=== PATIENT | female | born 1950 | race Caucasian/White ===

== ENCOUNTER 2020-04-03 09:00 | Outpatient (REF) | payer MEDICARE, OTHER, SELFPAY ==
[2020-04-03 10:51] LABS: MANUAL DIFF FLAG NO
[2020-04-03 10:56] LABS: Basophils Absolute Auto 0.1 X10*3/uL (0.0-0.2); Basophils Percent Auto 1.2 % (0-2); Eosinophils Absolute Auto 0.1 X10*3/uL (0.0-0.4); Eosinophils Percent Auto 1.4 % (0-4); Hematocrit 40.3 % (37-47); Hemoglobin 13.4 g/dl (12.0-16.0); Imm Gran Abs Auto 0.01 X10*3/uL (0.00-0.03); Imm Gran Pct Auto 0.2 % (0.0-0.4); Lymphocytes Percent Auto 19.8 % (20-40); Mean Corpuscular HGB Conc 33.3 g/dl (31.0-35.0); Mean Corpuscular Hemoglobin 30.4 pg (27.0-33.0); Mean Corpuscular Volume 91.4 fL (80-98); Mean Platelet Volume 9.6 fL (9.4-12.3); Monocytes Absolute Auto 0.5 X10*3/uL (0.1-1.2); Monocytes Percent Auto 9.2 % (2-11); Neutrophils Absolute Auto 3.4 X10*3/uL (2.0-8.3); Neutrophils Percent Auto 68.2 % (45-73); Platelet Count 221 X10*3/uL (160-400); Red Blood Count 4.41 X10*6/uL (4.20-5.50); Red Cell Distribution Width 12.1 % (11.0-16.0)
[2020-04-03 11:23] LABS: Alanine Aminotransferase 20 U/L (0-31); Albumin Level 4.3 g/dL (3.5-5.0); Alkaline Phosphatase 83 U/L (39-117); Anion Gap 12 (12-20); Aspartate Amino Transferase 22 U/L (5-31); Bilirubin Total 0.7 mg/dL (0.0-1.0); Blood Urea Nitrogen 16 mg/dL (9-16); Calcium 9.1 mg/dL (8.4-10.2); Carbon Dioxide 27 mmol/L (22-29); Chloride 103 mmol/L (96-108); Estimated Glomerular Filt Rate > 60; Glucose Fasting 102 mg/dL (60-99); Potassium 4.3 mmol/l (3.3-5.1); Sodium 138 mmol/L (135-145); Total Protein 6.6 g/dL (6.5-8.0)
[2020-04-03 11:38] LABS: Thyroid Stimulating Hormone 23.89 uIU/mL (0.32-4.0)
[2020-04-03 12:16] LABS: Erythrocyte Sedimentation Rate 7 MM/HR (0-20)
== END 2020-04-03 09:01 | disposition home or self-care (01) ==
LOC: HO.WFDLDS 09:00
PROVIDERS: PCP Internal Medicine; Visit Provider Internal Medicine
DX: U07.1 COVID-19 (principal)
CPT/HCPCS: 36415; 80053; 84443; 85025; 85652

== ENCOUNTER 2020-08-17 07:30 | Outpatient (RCR) | payer MEDICARE, OTHER, SELFPAY ==
--- NOTE | 2020-06-26 09:59 | MHC.PT.EP ---
[facility] [place] Office [place] Office [place] Office [address] Janny Rincon [address] [phone] F: [phone] F: [phone] F: [phone] F: [phone] Physical Therapy Plan of Care Date of Evaluation: 06/26/20 Date of Surgery: Diagnosis: vertigo Assessment: The patient is positive for positional vertigo. She had nystagmus and reports of vertigo in the right hallpike. She had symptoms in both the Anterior canal and posterior canal based on the direction of her nystagmus in the hallpike position. I did particle repositioning which eliminated nystagmus. The patient may need additional balance therapy once the vertigo is resolved. She had post maneuver dizziness which I educated her on safety and management of symptoms. The patient will return for f/u. Frequency and Duration: The patient will be seen 2x/week x 4 weeks. Short Term Goals: 1.Pt to be negative for nystagmus in all diagnostic positions for BPPV to facilitate improved functional movements. Residential Goals: 1. For the patient to be negative for nystagmus or reports of vertigo in all diagnostic positions bilaterally to resolution of BPPV in 4 weeks. 2. For the patient to be able to functionally move in all planes and directions without provocation of dizziness to show return to PLOF. 3.For the patient to be educated on symptoms and indications to return to therapy when needed in 4 weeks. Treatment Plan: Modalities to reduce pain, spasms and effusion. Manual therapy to restore motion and function. Therapeutic exercise to improve strength and flexibility. Neuromuscular re-education for posture and balance. Therapeutic activities to return to functional activities of daily living. Electronically signed by: Mi Dodd PT DPT Please sign and return to therapist. Thank you for your referral.
--- NOTE | 2020-08-17 09:30 | MHC.PT.DC ---
[facility] [place] Office [place] Office [place] Office [address] Janny Rincon [address] [phone] F: [phone] F: [phone] F: [phone] F: [phone] Physical Therapy Discharge Report Diagnosis: vertigo Date of Surgery: Date of Evaluation: 06/26/20 Date of Discharge: 08/17/20 Treatments to Date: 6 Cancellations to Date: No Shows to Date: Discharge Status: Achieved Goals Improved Function Independent with HEP Discharge Summary: Pt was negative in all canals bilaterally for BPPV. Pt has unsteadiness still some minor but manageable vestibular hypofunction. She has the most trouble with diagonal head movements. DVA was WNL today at -1 lines. Pt given final HEP of balance exercises targeting vestibular system especially with diagonal head or body movements. Pt d/c with HEP. She was instructed to return if symptoms of BPPV return. Electronically signed by: Mi Dodd PT DPT Please sign and return to therapist. Thank you for your referral.
== END 2020-08-28 08:00 | disposition home or self-care (01) ==
LOC: HO.PT 07:30
PROVIDERS: PCP Internal Medicine; Visit Provider Internal Medicine
DX: R42 Dizziness and giddiness (principal)
CPT/HCPCS: 95992; 97112; 97162; 97535

== ENCOUNTER 2020-10-22 08:02 | Outpatient (REF) | payer MEDICARE, OTHER, SELFPAY ==
--- NOTE | ~2020-10-22 | MM_ITS ---
EXAMINATION: BONE DENSITOMETRY CLINICAL INDICATION: Postmenopausal. COMPARISON: Baseline BD dated 03/02/2018. TECHNIQUE: Using a [employer] DXA System (software version: 13.1) manufactured by [employer], dual-energy x-ray absorptiometry was performed of the lumbar spine and left hip. The images are of good technical quality. Summary results are attached. FINDINGS: AP SPINE L1-L4 (excluding L2 and L3): The data of L1-L4 has been changed to exclude the L2 and L3 vertebral bodies, because degenerative changes at these levels may cause overestimation of lumbar spine density. Current: BMD 1.338 g/cm2, Z-score 2.4, T-score 1.4, normal, 2.1% increase from baseline (<5% change is not significant). Baseline: BMD 1.311 g/cm2. LEFT FEMUR, NECK: Current: BMD 1.029 g/cm2, Z-score 1.2, T-score -0.1, normal. Baseline: BMD 1.012 g/cm2. LEFT FEMUR, TOTAL: Current: BMD 1.145 g/cm2, Z-score 2.1, T-score 1.1, normal, 1.3% decrease from baseline (<5% change is not significant). Baseline: BMD 1.160 g/cm2. IDENTIFIED RISK FACTORS: Osteoporosis, secondary osteoporosis, menopause. HISTORY OF FRACTURE: None listed. MEDICATIONS: Vitamin D. MM/XR DEXA axial skeleton IMPRESSION: 1. DIAGNOSIS: Normal bone density based on the lowest T-score value of -0.1 in the femoral neck applying World Health Organization criteria. 2. 10-YEAR FRACTURE RISK PREDICTION, FRAX: Major osteoporotic fracture (clinical spine, forearm, hip or shoulder) 11.1%. Hip fracture 0.6%. 3. Treatment Recommendations: NOF guidelines recommend consideration for treatment in postmenopausal women and men age 50 and older presenting with the following: -A hip or vertebral (clinical or morphometric) fracture. -T-score less than or equal to -2.5 at the femoral neck or spine after appropriate evaluation to exclude secondary causes. -Low bone mass at the hip or spine and a 10-year fracture probability by FRAX of greater than or equal to 3% for hip fracture or greater than or equal to 20% for major osteoporotic fracture based on the [place] adapted WHO algorithm. 4. Other Recommendations: All treatment decisions require clinical judgment and consideration of individual patient factors, including patient preferences, comorbidities, previous drug use, risk factors not captured in the FRAX model (e.g. frailty, falls, vitamin D deficiency, increased bone turnover, interval significant decline in bone density) and possible under or overestimation of fracture risk by FRAX. FUTURE SCAN RECOMMENDATION: People with diagnosed cases of osteoporosis or at high risk for fracture should have regular bone mineral density tests. For patients eligible for Medicare, routine testing is allowed once every 2 years. The testing frequency can be increased to one year for patients who have rapidly progressing disease, those who are receiving or discontinuing medical therapy to restore bone mass, or have additional risk factors.
== END 2020-10-22 08:03 | disposition home or self-care (01) ==
LOC: HO.MAMMO 08:02
PROVIDERS: PCP Internal Medicine; Visit Provider Internal Medicine
DX: Z13.820 Encounter for screening for osteoporosis (principal); N95.9 Unspecified menopausal and perimenopausal disorder; Z78.0 Asymptomatic menopausal state; Z79.899 Other long term (current) drug therapy
CPT/HCPCS: 77080

== ENCOUNTER 2020-12-21 10:35 | Outpatient (REF) | payer MEDICARE, OTHER, SELFPAY ==
[2020-12-21 10:41] LABS: MANUAL DIFF FLAG NO
[2020-12-21 11:00] LABS: Basophils Absolute Auto 0.1 X10*3/uL (0.0-0.2); Basophils Percent Auto 1.2 % (0-2); Eosinophils Absolute Auto 0.1 X10*3/uL (0.0-0.4); Eosinophils Percent Auto 1.7 % (0-4); Hematocrit 39.2 % (37-47); Imm Gran Abs Auto 0.01 X10*3/uL (0.00-0.03); Imm Gran Pct Auto 0.2 % (0.0-0.4); Lymphocytes Absolute Auto 0.9 X10*3/uL (1.2-4.9); Mean Corpuscular HGB Conc 33.2 g/dl (31.0-35.0); Mean Corpuscular Hemoglobin 30.2 pg (27.0-33.0); Mean Corpuscular Volume 91.2 fL (80-98); Mean Platelet Volume 9.6 fL (9.4-12.3); Monocytes Absolute Auto 0.5 X10*3/uL (0.1-1.2); Monocytes Percent Auto 10.9 % (2-11); Neutrophils Absolute Auto 2.6 X10*3/uL (2.0-8.3); Platelet Count 222 X10*3/uL (160-400); Red Cell Distribution Width 12.7 % (11.0-16.0); White Blood Count 4.1 X10*3/uL (4.8-10.8)
[2020-12-21 11:20] LABS: Alanine Aminotransferase 24 U/L (0-31); Albumin Level 4.3 g/dL (3.5-5.0); Alkaline Phosphatase 91 U/L (39-117); Anion Gap 14 (12-20); Aspartate Amino Transferase 24 U/L (5-31); Bilirubin Total 0.7 mg/dL (0.0-1.0); Blood Urea Nitrogen 12 mg/dL (9-16); Calcium 9.3 mg/dL (8.4-10.2); Carbon Dioxide 29 mmol/L (22-29); Chloride 103 mmol/L (96-108); Cholesterol 181 mg/dL; Estimated Glomerular Filt Rate > 60; Glucose Fasting 93 mg/dL (60-99); HDL Cholesterol 56 mg/dL; LDL Cholesterol Calculated 101 mg/dl; Potassium 4.6 mmol/L (3.3-5.1); Sodium 141 mmol/L (135-145); Total Protein 6.6 g/dL (6.5-8.0); Triglycerides 120 mg/dL
[2020-12-21 11:35] LABS: Appearance Urine CLEAR; Color Urine YELLOW; Glucose Urine UA NEG (NEG); Leukocyte Esterase Urine NEG (NEG); Nitrite Urine NEG (NEG); PH 6.5 (5.0-8.0); Specific Gravity - Urine 1.015 (1.005-1.025); Urine Blood NEG (NEG); Urine Ketones NEG (NEG); Urine Protein TRACE MG/DL (NEG-TRACE)
[2020-12-21 11:45] LABS: TSH reflex Free T4 3.01 uIU/mL (0.32-4.0)
[2020-12-21 12:51] LABS: Reflex LDLD? No
== END 2020-12-21 10:36 | disposition home or self-care (01) ==
LOC: HO.LNP 10:35
PROVIDERS: Visit Provider Internal Medicine
DX: E03.9 Hypothyroidism, unspecified (principal); E78.00 Pure hypercholesterolemia, unspecified; D70.9 Neutropenia, unspecified; L40.50 Arthropathic psoriasis, unspecified
CPT/HCPCS: 80053; 80061; 81003; 84443; 85025

== ENCOUNTER 2021-03-16 08:14 | Outpatient (REF) | payer MEDICARE, OTHER, SELFPAY ==
[2021-03-18 13:42] LABS: Immunoglobulin A 67 mg/dL (70-320)
[2021-03-22 15:36] LABS: Transglutaminase Ab IgG <1.0 U/mL; Transglutaminase IgA <1.0 U/mL
[2021-03-23 13:01] LABS: Gliadin Deamidated IgA Ab <1.0 U/mL; Gliadin Deamidated IgG Ab <1.0 U/mL
[2021-03-23 14:07] LABS: Endomysial IgA Antibody Negative (Negative)
== END 2021-03-16 08:15 | disposition home or self-care (01) ==
LOC: HO.10HDL 08:14
PROVIDERS: Visit Provider Internal Medicine
DX: R19.4 Change in bowel habit (principal)
CPT/HCPCS: 36415; 82784; 83516; 86255; 86256

== ENCOUNTER 2021-03-17 08:52 | Day surgery (SDC) | payer MEDICARE, OTHER, SELFPAY ==
[2021-03-10 16:02] VITALS: BMI 32.3
--- NOTE | 2021-03-15 13:18 | HO.ANESPROP2 ---
Documented by User: Maddison Hamilton NP 03/15/21 13:19 HPI - Anesthesia Eval Consult details Narrative: 70yo F For Colonoscopy [facility] Past Medical History Medical History (Updated 03/10/21 @ 16:01 by Deisi Pleitez, JANETT) Depression GERD (gastroesophageal reflux disease) HTN (hypertension) Hyperlipidemia Hypothyroidism Psoriatic arthritis Surgical History Surgical History (Updated 03/10/21 @ 15:46 by Deisi Pleitez, JANETT) History of esophagogastroduodenoscopy (EGD) History of tonsillectomy Hx of colonoscopy Social History Social History Are you a primary respiratory care program director to a significant other at home: No Do you presently have visiting nurse or other home services: No Patient Tobacco Use Status: Former Tobacco user Quit Date: 1979 Tobacco use type: Cigarette Second Hand Smoke Exposure: No Use of substances other than those prescribed or required for medical reasons: No Have you been hit, kicked, punched, or otherwise hurt by someone within the past year? If so, by whom?: No Are you DNR?: No Advance Directives: No Advance Directives Information Provided: No Advance Directives on File: No Recently lost weight without trying: No Eating poorly because of decreased appetite: No Nutrition Risks: No Nutritional Risk Patient : No Meds Allergies Allergy/AdvReac Type Severity Reaction Status Date / Time amoxicillin Allergy Rash Verified 03/17/21 09:05 clavulanic acid Allergy Rash Verified 03/17/21 09:05 [From Augmentin] indomethacin Allergy Rash Verified 03/17/21 09:05 Home Medications Medication Instructions Recorded Confirmed Last Taken Type atorvastatin 20 mg tablet 20 mg PO DAILY 03/10/21 03/10/21 Unknown History citalopram 20 mg tablet 20 mg PO DAILY 03/10/21 03/10/21 Unknown History coenzyme Q10 100 mg capsule 200 mg PO DAILY 03/10/21 03/10/21 Unknown History (CoQ-10) levothyroxine 88 mcg tablet 88 mcg PO DAILY 03/10/21 03/10/21 03/17/21 05:45 History naproxen 500 mg tablet 500 mg PO BID PRN 03/10/21 03/17/21 03/08/21 History omeprazole 20 mg capsule,delayed 20 mg PO DAILY 03/10/21 03/10/21 Unknown History release valsartan 40 mg tablet 40 mg PO BID 03/10/21 03/10/21 Unknown History Exam Exam Date and Time: March 15, 2021 1318 Height,Weight and Vital Signs: Height 5 ft 5.5 in Weight 89.358 kg Pertinent Lab Results Pertinent Lab Results: Laboratory Tests 12/21/20 12/21/20 08:15 08:15 WBC 4.1 L Hgb 13.0 Hct 39.2 Plt Count 222 Sodium 141 Potassium 4.6 Chloride 103 Carbon Dioxide 29 BUN 12 Creatinine 0.73 Assessment and Plan Assessment Anesthesia Assessment: Chart Reviewed Documented by User: Sandeep Hahn 03/17/21 10:19 [facility] Past Medical History Medical History (Updated 03/10/21 @ 16:01 by Deisi Pleitez RN) Depression GERD (gastroesophageal reflux disease) HTN (hypertension) Hyperlipidemia Hypothyroidism Psoriatic arthritis Functional capacity: independent ambulation Family History Family history of problems with anesthesia: No Surgical History Surgical History (Updated 03/10/21 @ 15:46 by Deisi Pleitez RN) History of esophagogastroduodenoscopy (EGD) History of tonsillectomy Hx of colonoscopy History of Problems with Anesthesia: No Social History Social History Are you a primary respiratory care program director to a significant other at home: No Do you presently have visiting nurse or other home services: No Patient Tobacco Use Status: Former Tobacco user Quit Date: 1979 Tobacco use type: Cigarette Second Hand Smoke Exposure: No Use of substances other than those prescribed or required for medical reasons: No Have you been hit, kicked, punched, or otherwise hurt by someone within the past year? If so, by whom?: No Are you DNR?: No Advance Directives: No Advance Directives Information Provided: No Advance Directives on File: No Recently lost weight without trying: No Eating poorly because of decreased appetite: No Nutrition Risks: No Nutritional Risk Patient : No Meds Allergies Allergy/AdvReac Type Severity Reaction Status Date / Time amoxicillin Allergy Rash Verified 03/17/21 09:05 clavulanic acid Allergy Rash Verified 03/17/21 09:05 [From Augmentin] indomethacin Allergy Rash Verified 03/17/21 09:05 Home Medications Medication Instructions Recorded Confirmed Last Taken Type atorvastatin 20 mg tablet 20 mg PO DAILY 03/10/21 03/10/21 Unknown History citalopram 20 mg tablet 20 mg PO DAILY 03/10/21 03/10/21 Unknown History coenzyme Q10 100 mg capsule 200 mg PO DAILY 03/10/21 03/10/21 Unknown History (CoQ-10) levothyroxine 88 mcg tablet 88 mcg PO DAILY 03/10/21 03/10/21 03/17/21 05:45 History naproxen 500 mg tablet 500 mg PO BID PRN 03/10/21 03/17/21 03/08/21 History omeprazole 20 mg capsule,delayed 20 mg PO DAILY 03/10/21 03/10/21 Unknown History release valsartan 40 mg tablet 40 mg PO BID 03/10/21 03/10/21 Unknown History Exam Airway Mallampati Class: I TM Dist: >3cm Neck ROM: Limited (Sore ) Partial: Upper Loose/Missing/Broken Teeth: Yes (Chipped teeth ) Heart: rrr Lungs: bl breath sounds Assessment and Plan Final Anesthetic Review Family History of Problems with Anesthesia: No History of Problems with Anesthesia: No NPO: Yes ASA Class: II Final Preanesthetic Review: Meds/Allgs Chart Reviewed and Anes Risks/Benef Reviewed Patient Risk: Intermediate Procedure Risk: Intermediate Anesthetic Plan Anesthetic Plan: MAC: Disposition: Standard PACU
[2021-03-17 09:15] VITALS: BP 106/69; PULSE 86; RESP 16; TEMP 37.2; O2SAT 97
--- NOTE | 2021-03-17 09:29 | PC.NURSE ---
Patient arrived to [facility] with two silver rings on. One unable to be removed and the second, patient refuses to remove. Patient educated on risks of bringing metal into OR/Procedure room. Aware and agrees to proceed with procedure.
[2021-03-17] MEDS: Lactated Ringers 1,000 ML 100 ML IVCONT (09:47)
[2021-03-17 11:16] VITALS: BP 108/64; PULSE 79; RESP 15; TEMP 36.6; O2SAT 97
--- NOTE | 2021-03-17 11:17 | PM.OP ---
Brief Operative Note Date of Service: 03/17/21 Pre-op diagnosis: Change in Bowel habits Post-op diagnosis: other (Same, R/O microscopic colitis, Diverticulosis) Procedure: Colonoscopy to the cecum and TI with biopsies Surgeon: Jignesh Smith Anesthesia: MAC Was an Mixer Operator Vacuum Pan Salt used for this Procedure?: No Estimated blood loss (mL): 2.0 Pathology: other (A. Ascending colon B. Terminal ileum C. Descending colon) Condition: stable Disposition: PACU
[2021-03-17 11:31] VITALS: BP 127/72; PULSE 73; RESP 16; O2SAT 99
[2021-03-17 11:48] VITALS: BP 125/69; PULSE 80; RESP 16; TEMP 36.6; O2SAT 99
--- NOTE | 2021-03-17 12:21 | OP_ITS ---
SURGEON: Jignesh Smith MD INDICATIONS: The patient presents for evaluation of change in bowel habits with occasional rectal bleeding. Full consent has been obtained from her for this, including risks of bleeding and perforation. PREOPERATIVE DIAGNOSIS: Change in bowel habits. POSTOPERATIVE DIAGNOSIS: Change in bowel habits, diverticulosis, rule out microscopic colitis, internal hemorrhoids. PROCEDURE PERFORMED: Colonoscopy to cecum and terminal ileum with biopsies. ESTIMATED BLOOD LOSS: COMPLICATIONS: ANESTHESIA: Monitored anesthesia care. ASSISTANTS: SPECIMENS: DESCRIPTION OF PROCEDURE: The patient was placed in the left lateral decubitus position. The digital rectal exam revealed no abnormalities. The Olympus video pediatric colonoscope was entered into the rectum and advanced to the cecum with the assistance of abdominal wall pressure. Once in the cecum, I did identify normal-appearing cecal pouch with appendiceal orifice and a normal-appearing ileocecal valve. The terminal ileum was cannulated and appeared normal. Biopsies were obtained from the terminal ileum. The scope was withdrawn back in the colon. The entire cecum and ileocecal valve appeared normal. The scope was slowly withdrawn assessing all mucosal surfaces carefully. Preparation was excellent. I did not visualize any sign of polyps, colitis, nor angiodysplasia. There was a mild amount of sigmoid diverticulosis. Random biopsies were obtained in the ascending and descending colon. In the rectum, scope was retroflexed visualizing internal hemorrhoids, but no other pathology. The rectal mucosa appeared normal. The scope was straightened and withdrawn from the patient. She tolerated the procedure well and was returned to recovery area in stable condition. IMPRESSION: 1. Rule out microscopic colitis. 2. Diverticulosis. 3. Internal hemorrhoids. PLAN: The results of the biopsies will be checked. She has been advised to give Metamucil a trial to see if that can make her bowel movements regular. She did have blood work just yesterday for celiac disease and the results will be checked. She was instructed to see me in several months for a followup visit as well. Given the negative colonoscopy in regard to polyps, a negative colonoscopy in 2008, a negative colonoscopy in 2018 as well as a family history that is negative for colon cancer, I do not think she will need any further screening colonoscopies. MD OBINNA Leblanc/DARREN / [id number]
== END 2021-03-17 12:09 | disposition home or self-care (01) ==
PROVIDERS: PCP Internal Medicine; Visit Provider Internal Medicine
PROC: 0DJD8ZZ Inspection of Lower Intestinal Tract, Via Natural or Artificial Opening Endoscopic (ICD-10-PCS; CPT 45378; principal; 2021-03-17 10:10)
DX: R19.4 Change in bowel habit (principal); K57.30 Diverticulosis of large intestine without perforation or abscess without bleeding; K64.8 Other hemorrhoids; E78.5 Hyperlipidemia, unspecified; L40.50 Arthropathic psoriasis, unspecified; E03.9 Hypothyroidism, unspecified; F32.9 Major depressive disorder, single episode, unspecified; Z79.899 Other long term (current) drug therapy; Z79.1 Long term (current) use of non-steroidal anti-inflammatories (NSAID); Z87.891 Personal history of nicotine dependence; Z88.0 Allergy status to penicillin; Z88.1 Allergy status to other antibiotic agents
CPT/HCPCS: 45380; 88305

== ENCOUNTER 2021-11-26 11:28 | Outpatient (REF) | payer MEDICARE, OTHER, SELFPAY ==
[2021-11-26 12:20] LABS: Appearance Urine Clear; Color Urine Dark Yellow; Glucose Urine UA Negative (Negative); Leukocyte Esterase Urine Small (1+) (Negative); Nitrite Urine Negative (Negative); Specific Gravity - Urine >= 1.030 (1.005-1.025); Urine Blood Negative (Negative); Urine Ketones Trace mg/dL (Negative); Urine Protein Trace mg/dL (Neg-Trace)
[2021-11-26 12:26] LABS: Bacteria Urine None Seen (None Seen); Hyaline Casts Urine 0-2 /LPF (0-2); RBC Urine 0-2 /HPF (0-2); WBC Urine 21-50 /HPF (0-5)
[2021-11-26 12:47] LABS: UACC Culture Trigger NO
== END 2021-11-26 11:29 | disposition home or self-care (01) ==
LOC: HO.LNP 11:28
PROVIDERS: Visit Provider Internal Medicine
DX: N30.00 Acute cystitis without hematuria (principal); R31.0 Gross hematuria
CPT/HCPCS: 81001; 87086

== ENCOUNTER 2021-12-28 10:47 | Outpatient (REF) | payer MEDICARE, OTHER, SELFPAY ==
[2021-12-28 10:53] LABS: MANUAL DIFF FLAG NO
[2021-12-28 11:13] LABS: Basophils Percent Auto 0.2 % (0-2); Eosinophils Percent Auto 0.1 % (0-4); Hematocrit 37.9 % (37.0-47.0); Hemoglobin 12.7 g/dl (12.0-16.0); Imm Gran Abs Auto 0.23 X10*3/uL (0.00-0.03); Imm Gran Pct Auto 2.3 % (0.0-0.4); Lymphocytes Absolute Auto 1.2 X10*3/uL (1.2-4.9); Lymphocytes Percent Auto 12.2 % (20-40); Mean Corpuscular HGB Conc 33.5 g/dl (31.0-35.0); Mean Corpuscular Hemoglobin 29.8 pg (27.0-33.0); Mean Platelet Volume 8.8 fL (9.4-12.3); Monocytes Absolute Auto 0.5 X10*3/uL (0.1-1.2); Monocytes Percent Auto 4.9 % (2-11); Neutrophils Absolute Auto 7.9 x10*3/uL (2.0-8.3); Neutrophils Percent Auto 80.3 % (45-73); Platelet Count 356 X10*3/uL (160-400); Red Blood Count 4.26 X10*6/uL (4.20-5.50); Red Cell Distribution Width 12.4 % (11.0-16.0); White Blood Count 9.8 X10*3/uL (4.8-10.8)
[2021-12-28 11:21] LABS: Appearance Urine Clear; Color Urine Yellow; Glucose Urine UA Negative (Negative); Leukocyte Esterase Urine Negative (Negative); Nitrite Urine Negative (Negative); Urine Blood Negative (Negative); Urine Ketones Negative (Negative); Urine Protein Negative (Neg-Trace)
[2021-12-28 11:24] LABS: Alanine Aminotransferase 19 U/L (0-31); Albumin Level 4.1 g/dL (3.5-5.0); Alkaline Phosphatase 114 U/L (39-117); Anion Gap 18 (12-20); Aspartate Amino Transferase 16 U/L (5-31); Bilirubin Total 0.4 mg/dL (0.0-1.0); Blood Urea Nitrogen 17 mg/dL (9-16); Calcium 9.4 mg/dL (8.4-10.2); Carbon Dioxide 23 mmol/L (22-29); Chloride 100 mmol/L (96-108); Cholesterol 175 mg/dL; Estimated Glomerular Filt Rate > 60; Glucose Fasting 117 mg/dL (60-99); HDL Cholesterol 63 mg/dL; LDL Cholesterol Calculated 95 mg/dl; Potassium 4.5 mmol/L (3.3-5.1); Sodium 136 mmol/L (135-145); Total Protein 6.5 g/dL (6.5-8.0); Triglycerides 86 mg/dL
[2021-12-28 11:26] LABS: Bacteria Urine None Seen (None Seen); Hyaline Casts Urine 0-2 /LPF (0-2); RBC Urine 0-2 /HPF (0-2); Squamous Epithelial Cell Urine 0-2 /HPF (0-2); WBC Urine 0-5 /HPF (0-5)
[2021-12-28 11:46] LABS: TSH reflex Free T4 1.51 uIU/mL (0.32-4.0)
== END 2021-12-28 10:48 | disposition home or self-care (01) ==
LOC: HO.LNP 10:47
PROVIDERS: Visit Provider Internal Medicine
DX: E03.9 Hypothyroidism, unspecified (principal); D70.9 Neutropenia, unspecified; E78.00 Pure hypercholesterolemia, unspecified; I10 Essential (primary) hypertension
CPT/HCPCS: 80053; 80061; 81001; 84443; 85025

== ENCOUNTER → 2022-02-03 10:07 | Outpatient (BNVA) | payer MEDICARE, OTHER, SELFPAY | PROVIDERS: PCP Internal Medicine; Referring Provider Internal Medicine; Visit Provider Surgery | DX: R51.9 Headache, unspecified (principal) | CPT/HCPCS: 99202 ==

== ENCOUNTER 2022-03-08 07:52 | Day surgery (SDC) | payer MEDICARE, OTHER, SELFPAY ==
[2022-03-01 16:10] VITALS: BMI 33.9
--- NOTE | 2022-03-07 09:19 | P.CONAN_ITS ---
Documented by User: Maddison Hamilton NP 03/07/22 09:21 HPI - Anesthesia Eval Consult details Narrative: 71yo F for Right Temporal Artery Biopsy Prednisone 60mg daily PMFSH Active Problems Active Problems: All Active Problems (Updated 02/03/22 @ 11:13 by Alex Deluna MD) Right-sided headache (Acute) Past Medical History Medical History Depression GERD (gastroesophageal reflux disease) HTN (hypertension) Hyperlipidemia Hypothyroidism Psoriatic arthritis Right-sided headache Family History Family history of problems with anesthesia: No Surgical History Surgical History History of esophagogastroduodenoscopy (EGD) History of tonsillectomy Hx of colonoscopy History of Problems with Anesthesia: No Social History Social History Are you a primary home health care provider to a significant other at home: No Do you presently have visiting nurse or other home services: No Patient Tobacco Use Status: Former Tobacco user Quit Date: 1979 Tobacco use type: Cigarette Second Hand Smoke Exposure: No Use of substances other than those prescribed or required for medical reasons: No Have you been hit, kicked, punched, or otherwise hurt by someone within the past year? If so, by whom?: No Are you DNR?: No Advance Directives: No Advance Directives Information Provided: Yes Advance Directives on File: No Recently lost weight without trying: No Eating poorly because of decreased appetite: No Nutrition Risks: No Nutritional Risk Meds Allergies Allergy/AdvReac Type Severity Reaction Status Date / Time amoxicillin Allergy Rash Verified 03/01/22 15:55 clavulanic acid Allergy Rash Verified 03/01/22 15:55 [From Augmentin] indomethacin Allergy Rash Verified 03/01/22 15:55 Home Medications Medication Instructions Recorded Confirmed Last Taken Type atorvastatin 20 mg tablet 20 mg PO DAILY 03/10/21 03/01/22 Unknown History citalopram 20 mg tablet 20 mg PO DAILY 03/10/21 03/01/22 Unknown History coenzyme Q10 100 mg capsule 200 mg PO DAILY 03/10/21 03/01/22 Unknown History (CoQ-10) omeprazole 20 mg capsule,delayed 20 mg PO DAILY 03/10/21 03/01/22 Unknown History release valsartan 40 mg tablet 40 mg PO BID 03/10/21 02/03/22 Unknown History levothyroxine 100 mcg tablet 100 mcg PO DAILY 02/03/22 03/01/22 Unknown History prednisone 20 mg tablet 60 mg PO DAILY 02/03/22 03/01/22 Unknown History alendronate 70 mg tablet 1 tab PO QWEEK 03/01/22 03/01/22 Unknown History calcium carbonate 600 mg-vitamin 1 tab PO BID 03/01/22 03/01/22 Unknown History D3 10 mcg (400 unit) tablet (Calcium 600 + D(3)) tocilizumab 162 mg/0.9 mL 162 mg subcut QWEEK 03/01/22 03/01/22 Unknown History subcutaneous pen injector (Actemra ACTPen) Exam Exam Date and Time: March 07, 2022918 Height,Weight and Vital Signs: Height 5 ft 5 in Weight 92.533 kg Pertinent Lab Results Pertinent Lab Results: Laboratory Tests 12/28/21 12/28/21 07:30 07:30 WBC 9.8 Hgb 12.7 Hct 37.9 Plt Count 356 Sodium 136 Potassium 4.5 Chloride 100 Carbon Dioxide 23 BUN 17 H Creatinine 0.70 Assessment and Plan Assessment Anesthesia Assessment: Chart Reviewed Final Anesthetic Review Family History of Problems with Anesthesia: No History of Problems with Anesthesia: No Documented by User: Héctor Aldridge MD 03/08/22 10:05 [facility] Past Medical History Medical History Depression GERD (gastroesophageal reflux disease) HTN (hypertension) Hyperlipidemia Hypothyroidism Psoriatic arthritis Right-sided headache Surgical History Surgical History History of esophagogastroduodenoscopy (EGD) History of tonsillectomy Hx of colonoscopy Social History Social History Are you a primary home health care provider to a significant other at home: No Do you presently have visiting nurse or other home services: No Patient Tobacco Use Status: Former Tobacco user Quit Date: 1979 Tobacco use type: Cigarette Second Hand Smoke Exposure: No Use of substances other than those prescribed or required for medical reasons: No Have you been hit, kicked, punched, or otherwise hurt by someone within the past year? If so, by whom?: No Are you DNR?: No Advance Directives: No Advance Directives Information Provided: Yes Advance Directives on File: No Recently lost weight without trying: No Eating poorly because of decreased appetite: No Nutrition Risks: No Nutritional Risk Meds Allergies Allergy/AdvReac Type Severity Reaction Status Date / Time amoxicillin Allergy Rash Verified 03/01/22 15:55 clavulanic acid Allergy Rash Verified 03/01/22 15:55 [From Augmentin] indomethacin Allergy Rash Verified 03/01/22 15:55 Home Medications Medication Instructions Recorded Confirmed Last Taken Type atorvastatin 20 mg tablet 20 mg PO DAILY 03/10/21 03/01/22 Unknown History citalopram 20 mg tablet 20 mg PO DAILY 03/10/21 03/01/22 Unknown History coenzyme Q10 100 mg capsule 200 mg PO DAILY 03/10/21 03/01/22 Unknown History (CoQ-10) omeprazole 20 mg capsule,delayed 20 mg PO DAILY 03/10/21 03/01/22 Unknown History release valsartan 40 mg tablet 40 mg PO BID 03/10/21 02/03/22 Unknown History levothyroxine 100 mcg tablet 100 mcg PO DAILY 02/03/22 03/01/22 Unknown History prednisone 20 mg tablet 60 mg PO DAILY 02/03/22 03/01/22 Unknown History alendronate 70 mg tablet 1 tab PO QWEEK 03/01/22 03/01/22 Unknown History calcium carbonate 600 mg-vitamin 1 tab PO BID 03/01/22 03/01/22 Unknown History D3 10 mcg (400 unit) tablet (Calcium 600 + D(3)) tocilizumab 162 mg/0.9 mL 162 mg subcut QWEEK 03/01/22 03/01/22 Unknown History subcutaneous pen injector (Actemra ACTPen) Exam Airway Mallampati Class: III TM Dist: >3cm Neck ROM: Full Partial: Upper and Lower Loose/Missing/Broken Teeth: Yes Heart: rrr+[id number] Lungs: cta b/l Assessment and Plan Assessment Anesthesia Assessment: Anesthesia Plan Discussed Final Anesthetic Review NPO: Yes ASA Class: III Final Preanesthetic Review: No Changes in Pt Med Stat, Meds/Allgs Chart Reviewed, Consent Obtained/Reviewed and Anes Risks/Benef Reviewed Patient Risk: Intermediate Procedure Risk: Intermediate Assessment/Block/Sedation in SS: Assess/Block/Sedation-SS Anesthetic Plan Anesthetic Plan: MAC: and Agree w/ Assess. and Plan Disposition: Standard PACU
[2022-03-08] VITALS (11 sets, daily range): BP systolic 129–175; BP diastolic 78–132; PULSE 94–104; RESP 11–19; TEMP 36.1–36.6; O2SAT 90–98; BMI 34.1
[2022-03-08] MEDS: Lactated Ringers 1,000 ML 100 ML IVCONT (08:55)
--- NOTE | 2022-03-08 09:45 | MHC.SHP ---
Pre-Procedural Eval Section A Date of Service: 03/08/22 Section B Chief Complaint: Headache, Details of Present Illness: Has right-sided headaches Relevant Family History (Specify if Yes): No Relevant Social History: None Present Medications: see Short Stay Collaborative assessment Medical History: Significant History (Thyroid disease, hypertension) History of Previous Operations: No relevant previous surgery Allergies: Allergies Allergy/AdvReac Type Severity Reaction Status Date / Time amoxicillin Allergy Rash Verified 03/01/22 15:55 clavulanic acid Allergy Rash Verified 03/01/22 15:55 [From Augmentin] indomethacin Allergy Rash Verified 03/01/22 15:55 Review of Systems Sugical H&P ROS: Negative: Constitution, Cardiovascular, Respiratory, Neurological, Psychiatric, Hem-Onc, Allergic/Immunologic, Gastrointestinal, Genitourinary, Musculoskeletal, Integumentary, Endocrine and Eyes/Ears/Nose/Throat Exam Surgical H&P Exam: Normal: HEENT, Normal: Heart, Normal: Lungs, Normal: Extremities, Normal: Abdomen, Normal: Skin and Normal: Neurological Plan Diagnosis/Plan: Unchanged I have reviewed the history and physical and performed a pertinent physical examination on my patient. No changes have occurred unless specified. Time Spent With Patient Time: Total time managing care of this patient today ____ minutes.
--- NOTE | 2022-03-08 10:06 | P.CONAN_ITS ---
[facility] Active Problems Active Problems: All Active Problems (Updated 02/03/22 @ 11:13 by Alex Deluna MD) Right-sided headache (Acute) Past Medical History Medical History Depression GERD (gastroesophageal reflux disease) HTN (hypertension) Hyperlipidemia Hypothyroidism Psoriatic arthritis Right-sided headache Family History Family history of problems with anesthesia: No Surgical History Surgical History History of esophagogastroduodenoscopy (EGD) History of tonsillectomy Hx of colonoscopy History of Problems with Anesthesia: No Social History Social History Are you a primary spiritual care coordinator to a significant other at home: No Do you presently have visiting nurse or other home services: No Patient Tobacco Use Status: Former Tobacco user Quit Date: 1979 Tobacco use type: Cigarette Second Hand Smoke Exposure: No Use of substances other than those prescribed or required for medical reasons: No Have you been hit, kicked, punched, or otherwise hurt by someone within the past year? If so, by whom?: No Are you DNR?: No Advance Directives: No Advance Directives Information Provided: Yes Advance Directives on File: No Recently lost weight without trying: No Eating poorly because of decreased appetite: No Nutrition Risks: No Nutritional Risk Meds Allergies Allergy/AdvReac Type Severity Reaction Status Date / Time amoxicillin Allergy Rash Verified 03/01/22 15:55 clavulanic acid Allergy Rash Verified 03/01/22 15:55 [From Augmentin] indomethacin Allergy Rash Verified 03/01/22 15:55 Active Medications: Current Medications Lactated Ringer's (Lr) 1,000 mls @ 100 mls/hr IVCONT .Q10H AJITH Last Admin: 03/08/22 08:55 Dose: 100 mls/hr Home Medications Medication Instructions Recorded Confirmed Last Taken Type atorvastatin 20 mg tablet 20 mg PO DAILY 03/10/21 03/01/22 Unknown History citalopram 20 mg tablet 20 mg PO DAILY 03/10/21 03/01/22 Unknown History coenzyme Q10 100 mg capsule 200 mg PO DAILY 03/10/21 03/01/22 Unknown History (CoQ-10) omeprazole 20 mg capsule,delayed 20 mg PO DAILY 03/10/21 03/01/22 Unknown History release valsartan 40 mg tablet 40 mg PO BID 03/10/21 02/03/22 Unknown History levothyroxine 100 mcg tablet 100 mcg PO DAILY 02/03/22 03/01/22 Unknown History prednisone 20 mg tablet 60 mg PO DAILY 02/03/22 03/01/22 Unknown History alendronate 70 mg tablet 1 tab PO QWEEK 03/01/22 03/01/22 Unknown History calcium carbonate 600 mg-vitamin 1 tab PO BID 03/01/22 03/01/22 Unknown History D3 10 mcg (400 unit) tablet (Calcium 600 + D(3)) tocilizumab 162 mg/0.9 mL 162 mg subcut QWEEK 03/01/22 03/01/22 Unknown History subcutaneous pen injector (Actemra ACTPen) Exam Exam Date and Time: March 08, 2022 1006 Height,Weight and Vital Signs: Height 5 ft 5 in Weight 92.986 kg Last Vital Signs Temp 97.8 F 03/08/22 08:54 Pulse 101 H 03/08/22 08:54 Resp 18 03/08/22 08:54 BP 143/88 H 03/08/22 08:54 Pulse Ox 93 03/08/22 08:54 O2 Del Method 03/08/22 08:54 Airway Mallampati Class: II Neck ROM: Full Heart: rr Lungs: cta Assessment and Plan Assessment Anesthesia Assessment: Anesthesia Plan Discussed Final Anesthetic Review Family History of Problems with Anesthesia: No History of Problems with Anesthesia: No NPO: Yes ASA Class: II Final Preanesthetic Review: No Changes in Pt Med Stat Patient Risk: Low Procedure Risk: Low Anesthetic Plan Anesthetic Plan: GA Disposition: Standard PACU
--- NOTE | 2022-03-08 11:48 | W.PM.OPN ---
Operative Note Operative Note Date of Service: 03/08/22 Narrative: Preop diagnosis: Right-sided headaches Postop diagnosis: Right-sided headaches Procedure: Right temporal artery biopsy Surgeon: Alex Deluna MD Patient is 71-year-old female with right-sided headaches referred to me for a temporal artery biopsy. She understood technique of the procedure and was aware of the risks, benefits, and alternatives She was brought to the operating room placed supine under monitored anesthesia care. The right temporal area was prepped draped usual sterile fashion. I used a Doppler earlier to marked audible signals. A surgical time-out was done. The patient received cefazolin. I made a short incision on the skin on the right hinduism area using blade 15 and this carried down with electrocautery through the full-thickness of the skin subcutaneous fat. I then used the Metzenbaum scissors to sharply dissect through the layers. I used the Doppler intermittently to guide the direction of our dissection. To do this carefully to make sure that we were not damaging any nerves or other vessels. I was able to see a pulsatile bleeder. I gently dissected this using Metzenbaum scissors. I applied a clamp across this and this was divided and sent as a specimen. I tied the stump with a Dexon 3-0 tie. I continued to dissect around the area and looked around for any other larger vessel. We spent some time trying to identify any further vessel, in gently dissecting with the aid of the Doppler It appeared that the signal that we could get was from the stump of the vessel that had been transected earlier. In view of the risk of prolonging anesthesia time, I proceeded to complete the procedure. I irrigated. Once hemostasis was confirmed, I reapposed deep tissue with Dexon 3-0 interrupted sutures. Closure was achieved with Dexon 4-0 subcuticular running stitch. The area was infiltrated with Marcaine 0.5% for postop GERALDINE. Dressings were applied. The procedure was completed. The patient tolerated procedure well. There were no immediate complications. Initial and final counts of sponges instruments were correct. Estimated blood loss about 25 cc The patient was extubated without difficulty transferred to recovery room with stable vital signs. She did not have any deficits around the area, including the surrounding eye muscles.
[2022-03-08] MEDS: Acetaminophen 325 MG TABLET 650 MG PO (12:07)
[2022-03-08] MEDS: oxyCODONE HCl Immed Release 5 MG TABLET PO (12:08)
== END 2022-03-08 14:46 | disposition home or self-care (01) ==
PROVIDERS: PCP Internal Medicine; Visit Provider Surgery
PROC: (CPT 37609; principal; 2022-03-08 10:10)
DX: R51.9 Headache, unspecified (principal); M31.6 Other giant cell arteritis; I10 Essential (primary) hypertension; E78.5 Hyperlipidemia, unspecified; E03.9 Hypothyroidism, unspecified; L40.50 Arthropathic psoriasis, unspecified; F32.A Depression, unspecified; Z79.52 Long term (current) use of systemic steroids; Z79.899 Other long term (current) drug therapy; Z88.0 Allergy status to penicillin; Z88.1 Allergy status to other antibiotic agents; Z87.891 Personal history of nicotine dependence
CPT/HCPCS: 37609; 88305; J0690; J2250; J2405; J2795; J3010

== ENCOUNTER → 2022-03-30 11:09 | Outpatient (BNVA) | payer MEDICARE, OTHER, SELFPAY | PROVIDERS: PCP Internal Medicine; Visit Provider Surgery | DX: Z13.89 Encounter for screening for other disorder (principal) ==

== ENCOUNTER 2022-07-22 12:08 | Outpatient (REF) | payer MEDICARE, OTHER, SELFPAY ==
--- NOTE | ~2022-07-22 | US_ITS ---
EXAMINATION: US VENOUS ULTRASOUND WITH DOPPLER LOWER EXTREMITY, BILATERAL CLINICAL INFORMATION: Swelling COMPARISON: None available. TECHNIQUE: Ultrasound of the deep veins is performed from the hip to the calf with compression sonography and color and pulse Doppler assessment. Spectral analysis with color-flow imaging is performed. FINDINGS: RIGHT: There is normal venous compression and respiratory variation and augmented flow. The visualized common femoral vein, superficial femoral vein, profunda femoral vein, popliteal vein, and the trifurcation region shows no evidence of deep venous thrombosis. There is no significant popliteal fossa cyst. LEFT: There is normal venous compression and respiratory variation and augmented flow. The visualized common femoral vein, superficial femoral vein, profunda femoral vein, popliteal vein, and the trifurcation region shows no evidence of deep venous thrombosis. There is no significant popliteal fossa cyst. US/US venous duplex LE BI IMPRESSION: No DVT demonstrated in the bilateral lower extremity.
== END 2022-07-22 12:09 | disposition home or self-care (01) ==
LOC: HO.US 12:08
PROVIDERS: PCP Internal Medicine; Visit Provider Internal Medicine
DX: R60.0 Localized edema (principal)
CPT/HCPCS: 93970

== ENCOUNTER 2022-12-30 11:24 | Outpatient (REF) | payer MEDICARE, OTHER, SELFPAY | END 2022-12-30 11:25 | disposition home or self-care (01) | LOC: HO.LNP 11:24 | PROVIDERS: Visit Provider Internal Medicine | DX: E03.9 Hypothyroidism, unspecified (principal); D70.9 Neutropenia, unspecified; I10 Essential (primary) hypertension | CPT/HCPCS: 80053; 80061; 81001; 84443; 85025; 87086 ==

== ENCOUNTER 2023-08-11 11:38 | Outpatient (REF) | payer MEDICARE, OTHER, SELFPAY ==
[2023-08-11 12:30] LABS: Alanine Aminotransferase 15 U/L (0-31); Albumin Level 4.2 g/dL (3.5-5.0); Alkaline Phosphatase 99 U/L (39-117); Aspartate Amino Transferase 17 U/L (5-31); Bilirubin Direct 0.2 mg/dL (0.0-0.5); Bilirubin Total 0.5 mg/dL (0.0-1.0); Cholesterol 200 mg/dL (<200); HDL Cholesterol 64 mg/dL (>40); LDL Cholesterol Calculated 104 mg/dL (<100); Total Protein 6.8 g/dL (6.5-8.0); Triglycerides 163 mg/dL (<150)
== END 2023-08-11 11:39 | disposition home or self-care (01) ==
LOC: HO.LNP 11:38
PROVIDERS: Visit Provider Internal Medicine
DX: E78.00 Pure hypercholesterolemia, unspecified (principal)
CPT/HCPCS: 80061; 80076

== ENCOUNTER 2024-01-18 11:14 | Outpatient (REF) | payer MEDICARE, OTHER, SELFPAY ==
[2024-01-18 11:20] LABS: MANUAL DIFF FLAG NO
[2024-01-18 11:54] LABS: Basophils Absolute Auto 0.1 X10*3/uL (0.0-0.2); Basophils Percent Auto 1.4 % (0-2); Eosinophils Absolute Auto 0.2 X10*3/uL (0.0-0.4); Eosinophils Percent Auto 5.8 % (0-4); Hematocrit 37.5 % (37.0-47.0); Hemoglobin 12.7 g/dl (12.0-16.0); Imm Gran Abs Auto 0.02 X10*3/uL (0.00-0.03); Imm Gran Pct Auto 0.6 % (0.0-0.4); Lymphocytes Absolute Auto 0.9 X10*3/uL (1.2-4.9); Lymphocytes Percent Auto 26.9 % (20-40); Mean Corpuscular HGB Conc 33.9 g/dl (31.0-35.0); Mean Corpuscular Hemoglobin 30.2 pg (27.0-33.0); Mean Corpuscular Volume 89.3 fL (80.0-98.0); Mean Platelet Volume 9.7 fL (9.4-12.3); Monocytes Absolute Auto 0.5 X10*3/uL (0.1-1.2); Monocytes Percent Auto 13.9 % (2-11); Neutrophils Absolute Auto 1.8 x10*3/uL (2.0-8.3); Neutrophils Percent Auto 51.4 % (45-73); Platelet Count 231 X10*3/uL (160-400); Red Cell Distribution Width 12.5 % (11.0-16.0); White Blood Count 3.5 X10*3/uL (4.8-10.8)
[2024-01-18 11:56] LABS: Appearance Urine Clear; Color Urine Yellow; Glucose Urine UA Negative (Negative); Leukocyte Esterase Urine Trace (Negative); Nitrite Urine Negative (Negative); PH 5.5 (5.0-9.0); UMIC TRIGGER UACC YES; Urine Blood Negative (Negative); Urine Ketones Negative (Negative); Urine Protein Negative (Neg-Trace)
[2024-01-18 12:01] LABS: Bacteria Urine None Seen (None Seen); Hyaline Casts Urine 0-2 /LPF (0-2); RBC Urine 0-2 /HPF (0-2); Squamous Epithelial Cell Urine 0-2 /HPF (0-2); WBC Urine 0-5 /HPF (0-5)
[2024-01-18 12:14] LABS: Alanine Aminotransferase 24 U/L (0-31); Alkaline Phosphatase 93 U/L (39-117); Anion Gap 11 (12-20); Aspartate Amino Transferase 28 U/L (5-31); Bilirubin Total 0.3 mg/dL (0.0-1.0); Blood Urea Nitrogen 12 mg/dL (9-16); Calcium 9.4 mg/dL (8.4-10.2); Carbon Dioxide 27 mmol/L (22-29); Chloride 105 mmol/L (96-108); Cholesterol 173 mg/dL (<200); Estimated Glomerular Filt Rate > 60; Glucose Fasting 93 mg/dL (60-99); HDL Cholesterol 52 mg/dL (>40); LDL Cholesterol Calculated 97 mg/dL (<100); Sodium 139 mmol/L (135-145); Total Protein 6.3 g/dL (6.5-8.0); Triglycerides 121 mg/dL (<150)
[2024-01-18 12:29] LABS: TSH reflex Free T4 1.47 uIU/mL (0.32-4.0)
== END 2024-01-18 11:15 | disposition home or self-care (01) ==
LOC: HO.LNP 11:14
PROVIDERS: Visit Provider Internal Medicine
DX: E03.9 Hypothyroidism, unspecified (principal); D70.9 Neutropenia, unspecified; E78.00 Pure hypercholesterolemia, unspecified; I10 Essential (primary) hypertension
CPT/HCPCS: 80053; 80061; 81001; 84443; 85025

== ENCOUNTER 2024-08-27 09:51 | Outpatient (REF) | payer MEDICARE, OTHER, SELFPAY ==
[2024-08-27 09:53] LABS: MANUAL DIFF FLAG NO
[2024-08-27 10:11] LABS: Basophils Absolute Auto 0.1 X10*3/uL (0.0-0.2); Basophils Percent Auto 1.2 % (0-2); Eosinophils Absolute Auto 0.1 X10*3/uL (0.0-0.4); Eosinophils Percent Auto 2.7 % (0-4); Hematocrit 39.6 % (37.0-47.0); Hemoglobin 13.3 g/dl (12.0-16.0); Imm Gran Abs Auto 0.03 X10*3/uL (0.00-0.03); Imm Gran Pct Auto 0.7 % (0.0-0.4); Lymphocytes Absolute Auto 1.1 X10*3/uL (1.2-4.9); Lymphocytes Percent Auto 27.5 % (20-40); Mean Corpuscular HGB Conc 33.6 g/dl (31.0-35.0); Mean Corpuscular Hemoglobin 30.3 pg (27.0-33.0); Mean Corpuscular Volume 90.2 fL (80.0-98.0); Mean Platelet Volume 9.7 fL (9.4-12.3); Monocytes Absolute Auto 0.6 X10*3/uL (0.1-1.2); Monocytes Percent Auto 14.5 % (2-11); Neutrophils Absolute Auto 2.2 x10*3/uL (2.0-8.3); Neutrophils Percent Auto 53.4 % (45-73); Platelet Count 215 X10*3/uL (160-400); Red Blood Count 4.39 X10*6/uL (4.20-5.50); Red Cell Distribution Width 12.3 % (11.0-16.0); White Blood Count 4.2 X10*3/uL (4.8-10.8)
[2024-08-27 10:45] LABS: Alanine Aminotransferase 28 U/L (0-31); Albumin Level 4.3 g/dL (3.5-5.0); Alkaline Phosphatase 107 U/L (39-117); Aspartate Amino Transferase 28 U/L (5-31); Bilirubin Direct 0.1 mg/dL (0.0-0.5); Bilirubin Total 0.4 mg/dL (0.0-1.0); Cholesterol 176 mg/dL (<200); HDL Cholesterol 45 mg/dL (>40); LDL Cholesterol Calculated 97 mg/dL (<100); Total Protein 6.6 g/dL (6.5-8.0); Triglycerides 173 mg/dL (<150)
--- OUTSIDE RECORDS SUMMARY | 2024-08-27 11:05 | XMS_ITS ---
Author Organization Fadi Ariza MD Address [address] [place] [phone] Care Team Providers Care Domestic Helper Name Role Phone Fadi Ariza Primary Care Provider [phone] REASON FOR VISIT Tested positive for covid Encounters Encounter Location Date Provider Diagnosis Fadi Ariza MD 10 [facility] [address] [place] [phone] 04/09/2024 Fadi Ariza Plan Of Treatment Next Appt Details Provider Name:Fadi zamudio, 09/03/2024 10:15:00 AM, [address] [place] [address], [address], [phone], Provider Name:Fadi zamudio, 01/24/2025 07:15:00 AM, [address] [place] [address], [address], [phone], Provider Name:Fadi zamudio, 01/30/2025 08:00:00 AM, [address] [place] [address], [address], [phone], Progress Notes * Layla CONN CatherineDOB:[birth year] (73 yo F)Acc No.[id number]:04/09/2024 Patient:?Layla Conn :1950???Age:73 Y???Sex:Female Address:[address] [place] [address] * true * Date:? Generated for Tor lamb/Nancy/eTransmitting on:?08/27/2024 11:04 AM EDT
== END 2024-08-27 09:52 | disposition home or self-care (01) ==
LOC: HO.LNP 09:51
PROVIDERS: Visit Provider Internal Medicine
DX: D70.9 Neutropenia, unspecified (principal); E03.9 Hypothyroidism, unspecified
CPT/HCPCS: 80061; 80076; 84439; 84443; 85025

== ENCOUNTER 2024-12-09 12:29 | Outpatient (REF) | payer MEDICARE, OTHER, SELFPAY ==
--- OUTSIDE RECORDS SUMMARY | 2024-09-03 06:15 | XMS_ITS ---
Author Organization Fadi Ariza MD Address [address] [place] [phone] Care Team Providers Care Hydraulic Repairer Name Role Phone Fadi Ariza Primary Care [...] Location Date Provider Diagnosis Fadi Ariza MD [address] [place] [address] [place] [phone] 09/03/2024 Fadi Ariza Irritable bowel synd neil [...] 3 Months, Reason: Provider Name:Fadi Lugo ier, 01/24/2025 07:15:00 AM, 10 [facility], [address], [place], [place], [phone], Provider Name:Fadi Lugo ier, 01/30/2025 08:00:00 AM, [address] [facility], [address], [place], [place], [phone], Progress Notes * FABIENKileyLayla JDOB:[birth year] (74 yo F)Acc No.[id number]:09/03/2024 Progress Notes Patient: Layla DELGADO Provider: Kathia Ariza MD :1950 A ge:74 Y S ex:Female Date:09/03/2024 Address:[address] [place], [place] [phone] Subjective: * Chief Complaints: * 6 MO [...] N ausea. D enies V omiting, d clare heeves. * Medical History: * Surgical History: [...] true * Provider: Kathia Ariza MD Date: 09/03/2024 Generated for Tor lamb/Nancy/Michael on: 12/09/2024 05:11 PM EDT History and Physical Notes * HPI (History of Present Illness) Category Sub-Category Detail Notes Category Not es Symptom(s) patient is a 74 yo female here for 6 month follow up visit
--- OUTSIDE RECORDS SUMMARY | 2024-11-04 08:19 | XMS_ITS ---
Author Organization Fadi Ariza MD Address [address] [place] [phone] Care Team Providers Care Jawbone Puller Name Role Phone Fadi Ariza Primary Care Provider REASON FOR VISIT ER visit rec'd Encounters Encounter Location Date Provider Diagnosis Fadi Ariza MD 10 [facility] [address] [place] [phone] 11/04/2024 Fadi Ariza Plan Of Treatment Next Appt Details Provider Name:Fadi zamudio, 01/24/2025 07:15:00 AM, [address] [place] [address], [address], [phone], Provider Name:Fadi zamudio, 01/30/2025 08:00:00 AM, [address] [place] [address], [address], [phone], Progress Notes * Layla CONNDOB:[birth year] (74 yo F)Acc No.[id number]:11/04/2024 Patient: Layla DELGADO :1950 A ge:74 Y S ex:Female Address:[address] [place] [address] * true * Date: Generated for Tor lamb/Nancy/Michael on: 0 12/09/2024 05:12 PM EDT
--- OUTSIDE RECORDS SUMMARY | 2024-11-11 09:45 | XMS_ITS ---
Author Organization Fadi Ariza MD Address [address] [place] [phone] Care Team Providers Care Bander Operator Name Role Phone Fadi Ariza Primary Care Provider Allergies Allergen (clinical drug ingredient) Drug/Non Drug Allergy documented on EMR Reaction Allergy Type Onset Date Status Keflex rash Drug Allergy Active amoxicillin Amoxicillin rash Drug Allergy Act karen indomethacin Indomethicin (uncoded) dizziness Allergy Active amoxicillin / clavulanate AUGMENTIN (uncoded) RASH Allergy Active REASON FOR VISIT f/u ER visit after a fall covcussion Medications Medication SIG (Take, Route, Frequency, Duration) Notes Start Date End Date Status Ventolin HFA 108 (90 Base) MCG/ACT 2 puffs as needed Inhalation every 4 hrs for 30 days 11/09/2012 Not-Taking Albuterol Sulfate HFA 108 (90 Base) MCG/ACT 1 puff as needed Inhalation every 4 hrs 06/06/2022 Not-Takin g Ativan 0.5 MG 1 tablet as needed Orally every 6 hrs for 5 days 05/23/2023 Not-Taking Hyoscyamine Sulfate ER 0.375 MG 1 tablet Orally once a day for 30 days 09/03/2024 Active Atorvastatin Calcium 40 MG TAKE 1 TABLET BY MOUTH EVERY DAY Active Levothyroxine Sodium 112 MCG 1 tablet in the morning on an empty stomach Orally Once a day for 90 days 09/03/2024 Active Omeprazole 20 MG TAKE 1 CAPSULE BY MOUTH EVERY DAY for 90 Active Citalopram Hydrobromide 20 MG TAKE 2 TABLETS BY MOUTH EVERY DAY for 90 Active Valsartan-hydroCHLOROthiaz geni 320-12.5 MG TAKE 1 TABLET BY MOUTH EVERY DAY for 90 Active Naproxen 250 MG 1 tablet with food o r milk as needed Orally every 12 hrs Active CoQ-10 200 MG 1 capsule with a scotty l Orally Once a day Active Problems Problem Type SNOMED Code ICD Code Onset Dates Problem Status W/U Status Risk Notes Problem Cervical rib (98044715) Cervical rib (Q76.5) Active confirmed Vital Signs Blood pressure systolic 108 mm Hg 11/12/19 25 Blood pressure diastolic 60 mm Hg 025 Height 66 in 11/11/2024 Weight 199 lbs 11/11/2024 BMI 32.12 kg/m2 11/11/2024 Encounters Encounter Location Date Provider Diagnosis Fadi Ariza MD [address] [place] [address] Drive [address] [place], [place] [phone] 11/11/2024 Fadi Ariza Head injury S09.90XA and Cervical rib Q76.5 Assessments Encounter Date Diagnosis (ICD Code) Assessment Notes Treatment Notes Treatment Clinical Notes Section Notes 11/11/2024 Head injury (ICD-10 - S09.90XA) has recovered at present. no treatment needed unless her wrist doesn' t/ reviewed the records from the er with her and she is doing well. have explained that sometimes a small fracture in the wrist doesn't show on the first xray so if she continues to have pain will have to go to ortho Total time spent on the date of the encounter is 35 minutes including both face to face time spent and time spent reviewing documentation, pertinent lab data, studies and counseling the patient. 11/11/2024 Cervical rib (ICD-10 - Q76.5) was seen on xray on the right and can sometimes feel like a node Plan Of Treatment Treatment Notes Assessment Notes Head injury has recovered at pre sent. no treatment needed unless her wrist doesn' t/ reviewed the records from the er with her and she is doing well. have explained that sometimes a small fracture in the wrist doesn't show on the first xray so if she continues to have pain will have to go to ortho Total time spent on the date of the encounter is 35 minutes including both face to face time spent and time spent reviewing documentation, pertinent lab data, studies and counseling the patient. Cervical rib was seen on xray on the right and can sometimes feel like a node Next Appt Details Follow Up: cancel sept appt, Reason: Provider Name:Fadi Lugo ier, 01/24/2025 07:15:00 AM, [address] [place] [address], [address], [phone], Provider Name:Fadi Lugo ier, 01/30/2025 08:00:00 AM, [address] [place] [address], [place] [address], [place], [place], [phone], Progress Notes * Layla CONNDOB:[birth year] (74 yo F)Acc No.[id number]:11/11/2024 Progress Notes Patient: Layla DELGADO Catherine Provider: Kathia Ariza MD :1950 A ge:74 Y S ex:Female Date:11/11/2024 Address:[address] [place], [place] [phone] Subjective: * Chief Complaints: * f /u ER visit after a fall covcussion * HPI: S ymptom(s): patient is a 74 yo female here for foloow up of recent ER visit/ tripped and fell about 12 days ago. F all Risk: History H ave you had any falls with injury in the past year? Y es *-13-25 foot stuck on the ground and fell froward onto her head, and right hand did go to the ER.. * ROS: G eneral/Constitutional: Denies C hills. D enies F atigue. D enies F ever. D enies H eadache. E NT: Denies S ore throat. R espiratory: Denies C ough. D enies S hortness of breath at rest. D enies S hortness of breath with exertion. G astrointestinal: Denies D iarrhea. D enies N ausea. * Medical History: * Surgical History: * [...] CAPSULE BY MOUTH EVERY DAY Levothyroxine Sodium 112 MCG Tablet 1 tablet in the morning on an empty stomach Orally Once a day Hyoscyamine Sulfate ER 0.375 MG Tablet Extended Release 12 Hour 1 tablet Orally once a day Atorvastatin Calcium 40 MG Tablet TAKE 1 [...] BY MOUTH EVERY DAY Taking Levothyroxine Sodium 112 MCG Tablet 1 tablet in the morning on an empty stomach Orally Once a day Taking Hyoscyamine Sulfate ER 0.375 MG Tablet Extended Release 12 Hour 1 tablet Orally once a day Taking Atorvastatin Calcium 40 MG Tablet TAKE 1 TABLET BY MOUTH EVERY DAY Not-Taking/PRNAlbuterol Sulfate HFA 108 (90 Base) MCG/ACT Aerosol Solution 1 puff as needed Inhalation every 4 hrs Ativan 0.5 MG Tablet 1 tablet as needed Orally every 6 hrs Ventolin HFA 108 (90 Base) MCG/ACT Aerosol Solution 2 puffs as needed Inhalation every 4 hrs Not-Taking/PRN Albuterol Sulfate HFA 108 (90 Base) MCG/ACT Aerosol Solution 1 puff as needed Inhalation every 4 hrs Not-Taking/PRN Ativan 0.5 MG Tablet 1 tablet as needed Orally every 6 hrs Not-Taking/PRN Ventolin HFA 108 (90 Base) MCG/ACT Aerosol Solution 2 puffs as needed Inhalation every 4 hrs DiscontinuedLevothyroxine Sodium 100 MCG Tablet TAKE 1 TABLET BY MOUTH EVERY DAY Medication List reviewed and reconciled with the patientDiscontinued Levothyroxine Sodium 100 MCG Tablet TAKE 1 TABLET BY MOUTH EVERY DAY Medication List reviewed and reconciled with the patient * Allergies: A UGMENTIN: RASHIndomethicin: dizzinessAmoxicillin: rashKeflex: rashyes[Allergies Verified] Objective: * Vitals: H t: 66, Wt: 199, BMI:32.12, BP:108/60, Wt-k.27. * Examination: G eneral Examination: GENERAL APPEARANCE: a lert, well hydrated, in no distress.? HEAD: n ormocephalic with ecchymosis around eyes from fall.? SKIN: g ood turgor. HEART: r egular rate and rhythm, no murmurs, rubs, gallops.? LUNGS: n o wheezes, rales, rhonchi, good air movement, clear to auscultation bilaterally. Assessment: * Assessment: 1. H ead injury - S09.90XA (Primary) 2 . C ervical rib - Q76.5 ? Plan: * Treatment: 2. C ervical rib Notes: was seen on xray on the right and can sometimes feel like a node * Procedure Codes: * Follow Up: c macyel sept appt * * Sign off status: Completed true * Provider: Kathia Ariza MD Date: 0 11/11/2024 Generated for Tor lamb/Nancy/Tristensmitting on: 0 12/09/2024 05:11 PM EDT History and Physical Notes * HPI (History of Present Illness) Category Sub-Category Detail Notes Category Not es Symptom(s) patient is a 74 yo female here for foloow up of recent ER visit/ tripped and fell about 12 days ago Fall Risk History Have you had any falls with injury in the past year?: Yes *-13-25 foot stuck on the ground and fell froward onto her head, and right hand did go to the ER. Examination Category Sub-Category Detail Notes Category Not es General Examination GENERAL APPEARANCE: alert, w ell hydrated, in no distress HEAD: normocephalic with e cchymosis around eyes from fall HEART: regular rate and rhy thm, no murmurs, rubs, gallops LUNGS: no wheezes, rales, r honchi, good air movement, clear to auscultation bilaterally SKIN: good turgor
--- OUTSIDE RECORDS SUMMARY | 2024-12-09 04:15 | XMS_ITS ---
Author Organization Fadi Ariza MD Address [address] [place] [phone] Care Team Providers Care Nuclear Plant Instrument Technician Name Role Phone Fadi Ariza Primary Care Provider [phone] Results Component Value Reference Range Notes TSH reflex Free T4 Reviewed date:12/09/2024 04:45:58 PM Interpretation: Performing Lab:[facility], [address] [place] [phone] Notes/Report: TSH reflex Free T4 6.31 0.32-4.0 uIU/mL REASON FOR VISIT TSH Encounters Encounter Location Date Provider Diagnosis Fadi Ariza MD [address] [place] [phone] 12/09/2024 Fadi Ariza Irritable bowel syndrome without diarrhea K58.9 Assessments Encounter Date Diagnosis (ICD Code) Assessment Notes Treatment Notes Treatment Clinical Notes Section Notes 12/09/2024 Irritable bowel syndrome without diarrhea (ICD-10 - K58.9) Plan Of Treatment Next Appt Details Provider Name:Fadi zamudio, 01/24/2025 07:15:00 AM, [address], [address] [place] [address] [place], [phone], Provider Name:Fadi Lugo ier, 01/30/2025 08:00:00 AM, [facility], [address], [place], [place], [phone], Progress Notes * Layla CONN CatherineDOB:[birth year] (74 yo F)Acc No.[id number]:12/09/2024 Progress Note Patient: Layla DELGADO Provider: Kathia Ariza MD :1950 A ge:74 Y S ex:Female Date:12/09/2024 Address:[address] [place], [place] [phone] Subjective: * Chief Complaints: * 1 . TSH. * Medical History: Objective: * Vitals: Assessment: * Assessment: 1. I rritable bowel syndrome without diarrhea - K58.9 (Primary) Plan: * Treatment: * Procedure Codes: 3 6415 VENIPUNCT, ROUTINE* * * The named appointment provid er may or may not be the originator of this progress note, and it is not deemed complete until electronically signed by the appointment provider. Sign off status: Pending * Provider: Kathia Ariza MD Date: 12/09/2024 Generated for Tor lamb/Nancy/Charissaitting on: 12/09/2024 05:11 PM EDT
--- OUTSIDE RECORDS SUMMARY | 2024-12-09 12:30 | XMS_ITS ---
Author Organization Fadi Ariza MD Address [address] [place] [phone] Care Team Providers Care Beverage Host Name Role Phone Fadi Ariza Primary Care [...] Date Provider Diagnosis Fadi Ariza MD [address] [facility] [address] [place] [phone] 12/09/2024 Fadi Ariza Plan Of Treatment Next Appt Details Provider Name:Fadi zamudio, 01/24/2025 07:15:00 AM, [address] [place] [address], [address], [phone], Provider Name:Fadi zamudio, 01/30/2025 08:00:00 AM, [address] [place] [address], [address], [phone], Progress Notes * Layla CONN JDOB:[birth year] (74 yo F)Acc No.[id number]:12/09/2024 Progress Notes Patient: Layla DELGADO Provider: Kathia Ariza MD :1950 A ge:74 Y S ex:Female Date:12/09/2024 Address:[address] [place], [place] [phone] Subjective: * Chief Complaints: * 1 . [...] N ausea. * Medical History: c olonoscopy 2009 due in 10 years; colonoscopy done 10/03/[address] Smith - repeat 10 years, colonoscopy 03/16, pending path, if negative no further testng is req., annual appt with DIRECT CASTING OPERATOR, Dr. Carey Lee, [facility]; Pap smear - 03/2013, Cough due to [...] 0 12/09/2024 Generated for Tor lamb/Nancy/Charissaitting on: 12/09/2024 05:12 PM EDT
[2024-12-09 14:43] LABS: Free T4 (Free Thyroxine) 1.17 ng/dL (0.71-1.85)
--- OUTSIDE RECORDS SUMMARY | 2024-12-09 17:11 | XMS_ITS | Patient Health Record ---
Author Organization Fadi Ariza MD Address [address] [place] [address] [phone] Care Team Providers Care Chicken Vaccinator Name Role Phone Fadi Ariza Primary Care Provider Allergies Allergen (clinical drug ingredient) Drug/Non Drug Allergy documented on EMR Reaction Allergy Type Onset Date Status Keflex rash Drug Allergy Active amoxicillin Amoxicillin rash Drug Allergy Act karen indomethacin Indomethicin (uncoded) dizziness Allergy Active amoxicillin / clavulanate AUGMENTIN (uncoded) RASH Allergy Active Results Component Value Reference Range Notes Complete Blood Count Auto Di ff Reviewed date:08/27/2024 04:42:59 PM Interpretation: Performing Lab:[facility], [address] [place] [phone] Notes/Report: White Blood Count 4.2 4.8-10.8 X10*3/uL [...] Panel Reviewed date:08/27/2024 12:29:00 PM Interpretation: Performing Lab:[facility], [address] [place] [phone] Notes/Report: Bilirubin Total 0.4 0.0-1.0 mg/dL Bilirubin Direct 0.1 0.0-0.5 mg/dL Aspartate Amino Transferase 28 5-31 U/L Alanine Aminotransferase 28 0-31 U/L Total Protein 6.6 6.5-8.0 g/dL Albumin Level 4.3 3.5-5.0 g/dL Alkaline Phosphatase 107 39-117 U/L Lipid Panel Reviewed date:08/27/2024 12:30:17 PM Interpretation: Performing Lab:[facility], [address] [place] [phone] Notes/Report: Triglycerides 173 <150 mg/dL Desirable Triglyceride: [...] T4 Reviewed date:08/27/2024 12:29:39 PM Interpretation: Performing Lab:[facility], [address] [place] [phone] Notes/Report: TSH reflex Free T4 4.70 0.32-4.0 uIU/mL TSH reflex Free T4 Reviewed date:12/09/2024 04:45:58 PM Interpretation: Performing Lab:[facility], [address] [place] [phone] Notes/Report: TSH reflex Free T4 6.31 0.32-4.0 uIU/mL Complete Blood Count Auto Di ff Reviewed date:01/18/2024 12:46:58 PM Interpretation: Performing Lab:[facility], [address] [place] [phone] Notes/Report: White Blood Count 3.5 4.8-10.8 X10*3/uL Red Blood Count 4.20 4.20-5.50 X10*6/uL Hemoglobin 12.7 12.0-16.0 g/dl Hematocrit 37.5 37.0-47.0 % Mean Corpuscular Volume 89.3 80.0-98.0 fL Mean Corpuscular Hemoglobin 30.2 27.0-33.0 pg Mean Corpuscular HGB Conc 33.9 31.0-35.0 g/dl Red Cell Distribution Width 12.5 11.0-16.0 % Platelet Count 231 160-400 X10*3/uL Mean Platelet Volume 9.7 9.4-12.3 fL Neutrophils Percent Auto 51.4 45-73 % Imm Gran Pct Auto 0.6 0.0-0.4 % Lymphocytes Percent Auto 26.9 20-40 % Monocytes Percent Auto 13.9 2-11 % Eosinophils Percent Auto 5.8 0-4 % Basophils Percent Auto 1.4 0-2 % NRBC Pct Auto 0.0 0.0-0.2 /100WBC Neutrophils Absolute Auto 1.8 2.0-8.3 x10*3/u L Imm Gran Abs Auto 0.02 0.00-0.03 X10*3/uL Lymphocytes Absolute Auto 0.9 1.2-4.9 X10*3/u L Monocytes Absolute Auto 0.5 0.1-1.2 X10*3/uL Eosinophils Absolute Auto 0.2 0.0-0.4 X10*3/u L Basophils Absolute Auto 0.1 0.0-0.2 X10*3/uL NRBC Abs Auto 0.000 0.0-0.012 X10*3/uL Comprehensive Lawtell. Panel Fa st Reviewed date:01/18/2024 12:44:22 PM Interpretation: Performing Lab:[facility], [address] [place] [phone] Notes/Report: Sodium 139 135-145 mmol/L Potassium 4.0 3.3-5.1 mmol/L Chloride 105 96-108 mmol/L Carbon Dioxide 27 22-29 mmol/L Anion Gap 11 12-20 Blood Urea Nitrogen 12 9-16 mg/dL Creatinine 0.77 0.5-1.4 mg/dL Estimated Glomerular Filt Rate > 60 NOTE: For -Russian individuals, multiply the result by 1.210. Chronic Kidney Disease: Estimated GFR < 60 mL/min/1.73m2 Severe Kidney Disease: Estimated GFR < 15 mL/min/1.73m2 Glucose Fasting 93 60-99 mg/dL Calcium 9.4 8.4-10.2 mg/dL Bilirubin Total 0.3 0.0-1.0 mg/dL Aspartate Amino Transferase 28 5-31 U/L Alanine Aminotransferase 24 0-31 U/L Total Protein 6.3 6.5-8.0 g/dL Albumin Level 4.0 3.5-5.0 g/dL Alkaline Phosphatase 93 39-117 U/L Lipid Panel Reviewed date:01/18/2024 12:43:46 PM Interpretation: Performing Lab:[address] [phone] Notes/Report: Triglycerides 121 <150 mg/dL Desirable Triglyceride: less than 150 mg/dL Borderline High Triglyceride 150-199 mg/dL High Triglyceride: 200-499 mg/dL Very High Triglyceride: greater than or equal to 5OO mg/dL Cholesterol 173 <200 mg/dL Desirable Cholesterol: less than 200 mg/dL Borderline High Cholesterol: 200-239 mg/dL High Cholesterol: greater than 239 mg/dL LDL Cholesterol Calculated 97 <100 mg/dL Desirable LDL: less than 100 mg/dL Near Optimal/Above Optimal LDL: 110-129 mg/dL Borderline High LDL: 130-159 mg/dL High LDL: 160-189 mg/dL Very High LDL: greater than or equal to 190 mg/dL HDL Cholesterol 52 >40 mg/dL Desirable HDL: greater than 40 mg/dL Note: This HDL assay may give artificially low results in patients with liver disease. TSH reflex Free T4 Reviewed date:01/18/2024 12:44:31 PM Interpretation: Performing Lab:[facility], [address] [place] [phone] Notes/Report: TSH reflex Free T4 1.47 0.32-4.0 uIU/mL UA ClnCatch+Micro w/rflx Cul t Reviewed date:01/18/2024 05:30:03 PM Interpretation: Performing Lab:[address] [phone] Notes/Report: Urine, Clean Catch Color Urine Yellow Appearance Urine Clear PH 5.5 5.0-9.0 Glucose Urine UA Negative Negative mg/dL Urine Blood Negative Negative Specific [place] - Urine 1.010 1.005-1.025 Urine Protein Negative Neg-Trace mg/dL Urine Ketones Negative Negative mg/dL Nitrite Urine Negative Negative Leukocyte Esterase Urine Trace Negative RBC Urine 0-2 0-2 /HPF WBC Urine 0-5 0-5 /HPF Squamous Epithelial Cell Urine 0-2 0-2 /HPF Bacteria Urine None Seen None Seen Hyaline Casts Urine 0-2 0-2 /LPF Hold Gold Reviewed date:01/18/2024 12:42:57 PM Interpretation: Performing Lab:[facility], [address] [place] [phone] Notes/Report: Juan Manuel Blood See Note Specimen held untested for 24 hours; Call to request Chemistry testing. Free T4 (Free Thyroxine) Reviewed date:08/27/2024 12:18:52 PM Interpretation: Performing Lab:[facility], [address] [place] [phone] Notes/Report: Free T4 (Free Thyroxine) 1.20 0.71-1.85 ng/dL Juan Manuel Blood Reviewed date:08/27/2024 12:18:41 PM Interpretation: Performing Lab:[facility], [address] [place] [phone] Notes/Report: Juan Manuel Blood See Note Specimen held untested for 24 hours; Call to request Chemistry testing. Free T4 (Free Thyroxine) Reviewed date:12/09/2024 04:44:38 PM Interpretation: Performing Lab:[facility], [address] [place] [phone] Notes/Report: Free T4 (Free Thyroxine) 1.17 0.71-1.85 ng/dL Juan Manuel Blood Reviewed date:12/09/2024 12:40:30 PM Interpretation: Performing Lab:[facility], [address] [place] [phone] Notes/Report: Juan Manuel Blood See Note Specimen held untested for 24 hours; Call to request Chemistry testing. Reason For Referral No Information Medications Medication SIG (Take, Route, Frequency, Duration) Notes Start Date End Date Status Levothyroxine Sodium 112 MCG 1 tablet in [...] as needed Orally every 12 hrs Active Ventolin HFA 108 (90 Base) MCG/ACT 2 puffs as needed Inhalation every 4 hrs for 30 days 11/09/2012 Not-Taking CoQ-10 200 MG 1 capsule with a scotty l Orally Once a day Active Albuterol Sulfate HFA 108 (90 Base) MCG/ACT 1 puff as needed Inhalation every 4 hrs 06/06/2022 Not-Takin g Ativan 0.5 MG 1 tablet as needed Orally every 6 hrs for 5 days 05/23/2023 Not-Taking Hyoscyamine Sulfate ER 0.375 MG 1 tablet Orally once a day for 30 days 09/03/2024 Active Atorvastatin Calcium 40 MG TAKE 1 TABLET BY MOUTH EVERY DAY Active Immunizations Vaccine Route Administration Date Status Comme nts Flu Vaccine Unknown 02/10/2013 Administered At work. Flu Vaccine Unknown 01/07/2014 Administered [facility] Flu Vaccine Unknown 01/05/2015 Administered At work PPSV23 (Pnemovax) IM Intramuscular 01/15/2016 Administered Flu Vaccine Unknown 01/19/2016 Administered At Work Flu Vaccine Unknown 01/09/2017 Administered at work Fluarix Quadrivalent Unknown 01/31/2018 Administered At work Fluarix Quadrivalent IM Intramuscular 05/07/2019 Administered Fluarix Quadrivalent Unknown 02/10/2020 Administered AT WORK Covid Vaccine Unknown 04/10/2020 Administered Pfizer Covid Vaccine Unknown 05/01/2020 Administered Pfizer Prevnar 13 IM Intramuscular 12/21/2020 Administered Influenza High Dose Unknown 12/26/2020 Administered SARS-COV-2 Pfizer Unknown 01/23/2021 Administered SARS-COV-2 Pfizer Unknown 10/12/2021 Administered [facility] Influenza High Dose IM Intramuscular 12/28/2021 Administered SARS-COV-2 Pfizer Unknown 01/14/2022 Administered [facility] Influenza High Dose IM Intramuscular 12/30/2022 Administered Influenza High Dose IM Intramuscular 01/18/2024 Administered Prevnar 13 Unknown 02/13/2018 Refused Influenza High Dose Unknown 12/24/2020 Refused Social History Tobacco Use: Social History Observation [...] Never (0 point) Points 2 Interpretation Negative Problems Problem Type SNOMED Code ICD Code Onset Dates Problem Status W/U Status Risk Notes Problem Sciatica (95341758) Sciatica (M54.30) Active confirmed Problem 23067640 Irritable bowel syndrome without diarrhea (K58.9) Active confirmed Problem Cervical rib (15422264) Cervical rib (Q76.5) Active confirmed Problem 52306696 Essential hypert ension (I10) Active confirmed Problem 284903612 Acquired hypothy roidism (E03.9) Active confirmed Problem 760518499 Psoriatic arthri tis (L40.50) Active confirmed Problem 19170078 Post menopausal problems (N95.9) Active confirmed Problem Pseudogout (949429546) Pseudogout (M11.80) Active confirmed Problem 38933658 Hiatal hernia (K44.9) Active confirmed Problem 32787357 Dysthymia (F34.1) Active confirmed Problem 172601736 Neutropenia, unspecified type (D70.9) Active confirmed Problem 601494714 Drug allergy (Z88.9) Active confirmed Problem 305034815 Pure hypercholesterolemia (E78.00) Active confirmed Problem 489715146 Bruxism (F45.8) Active confirmed Problem 430904527 Mild intermitten t asthmatic bronchitis with acute exacerbation (J45.21) Active confirmed Problem 20955895 Duodenitis witho ut mention of hemorrhage (K29.80) Active confirmed Problem 576621530 Giant cell arter itis (M31.6) Active confirmed Problem 739087955 Tension-type hea dache, not intractable, unspecified chronicity pattern (G44.209) Active confirmed Vital Signs Blood pressure diastolic 60 mm Hg 11/11/2024 Height 66 in 11/11/2024 Blood pressure systolic 108 mm Hg 11/11/2024 Weight 199 lbs 11/11/2024 BMI 32.12 kg/m2 11/11/2024 Encounters Encounter Location Date Provider Diagnosis Fadi Ariza MD [address] [place] [address] Drive [address] [place] [address] [id number] 08/27/2024 Fadi Ariza Acquired hypothyroid ism E03.9 and Neutropenia, unspecified type D70.9 Fadi Ariza MD [address] [place] [address] [id number] 12/09/2024 Fadi Ariza Irritable bowel synd neil without diarrhea K58.9 Fadi Ariza MD [address] [place] [address] [id number] 01/18/2024 Fadi Ariza Acquired hypothyroid ism E03.9 ; Neutropenia, unspecified type D70.9 ; Pure hypercholesterolemia E78.00 ; Encounter for immunization Z23 and Essential hypertension I10 Fadi Ariza MD [address] [place] [address] [id number] 01/26/2024 Fadi Ariza Acquired hypothyroid ism E03.9 ; Neutropenia, unspecified type D70.9 ; Bruxism F45.8 ; Dysthymia F34.1 ; Pure hypercholesterolemia E78.00 ; Essential hypertension I10 and Depression screening Z13.31 Fadi Ariza MD [address] [place] [address] [id number] 09/03/2024 Fadi Ariza Irritable bowel synd neil without diarrhea K58.9 ; Acquired hypothyroidism E03.9 and Pure hypercholesterolemia E78.00 Fadi Ariza MD [address] [place] [address] [id number] 11/11/2024 Fadi Ariza Head injury S09.90XA and Cervical rib Q76.5 Fadi Ariza MD [address] [place] [address] [id number] 04/09/2024 Fadi Ariza MD [address] [id number] 11/04/2024 Fadi Ariza Assessments Encounter Date Diagnosis (ICD Code) Assessment Notes Treatment Notes Treatment Clinical Notes Section Notes 08/27/2024 Acquired hypothyroid ism (ICD-10 - E03.9) 08/27/2024 Neutropenia, unspecified type (ICD-10 - D70.9) 12/09/2024 Irritable bowel syndrome without diarrhea (ICD-10 - K58.9) 01/18/2024 Acquired hypothyroid ism (ICD-10 - E03.9) 01/18/2024 Neutropenia, unspecified type (ICD-10 - D70.9) 01/26/2024 Acquired hypothyroid ism (ICD-10 - E03.9) has good tsh, is at goal, will continue curent regiment 01/26/2024 Neutropenia, unspecified type (ICD-10 - D70.9) has had this before, will continue to monitor 09/03/2024 Irritable bowel syndrome without diarrhea (ICD-10 - K58.9) patient verbalized understanding of medication and directions for use 11/11/2024 Head injury (ICD-10 - S09.90XA) has [...] and can sometimes feel like a node 01/18/2024 Pure hypercholesterolemia (ICD-10 - E78.00) 01/26/2024 Bruxism (ICD-10 - F45.8) going to physical therapy 09/03/2024 Acquired hypothyroid ism (ICD-10 - E03.9) patient verbalized undersanding of medication and irections for use 01/18/2024 Encounter for immunization (ICD-10 - Z23) 01/26/2024 Dysthymia (ICD-10 - F34.1) stable, will continue current regiment 09/03/2024 Pure hypercholesterolemia (ICD-10 - E78.00) stable, will continue current regiment 01/18/2024 Essential hypertensi on (ICD-10 - I10) 01/26/2024 Pure hypercholesterolemia (ICD-10 - E78.00) stable, at goal, will continue current regiment 01/26/2024 Essential hypertensi on (ICD-10 - I10) doing well, will continue current regiment 01/26/2024 Depression screening (ICD-10 - Z13.31) negative screen Plan Of Treatment Pending Test Test Name Order Date Electrocardiogram (EKG) 07/29/2016 Electrocardiogram (EKG) 08/11/2017 Electrocardiogram (EKG) 08/30/2018 Electrocardiogram (EKG) 07/24/2015 MRI CERVICAL SPINE NO CONTRAST 2 MRI LUMBAR SPINE NO CONTRAST 12/07/2021 BONE DENSITY DEXA 08/24/2012 MAMMOGRAM DIGITAL BILATERAL SCREEN 09/04 24 hour holter monitor 10/28/2014 Future Test Test Name Order Date BONE DENSITY DEXA 03/19/2020 Next Appt Details Provider Name:Fadi Lugo ier, 01/24/2025 07:15:00 AM, [address] [place] [address], [address], [place], [place], [phone], Provider Name:Fadi Lugo ier, 01/30/2025 08:00:00 AM, [address] [facility], [address], [place], [place], [id number], Insurance Providers Payer Name Payer Address Payer Phone Subscriber Number Group Number Insured Name Patient Relationship to Insured Coverage Start Date Coverage End Date MEDICARE [employer] [address] [place] [id number] Self - patient is the insured 6 [facility] [address] [place] [phone] [id number] Self - patient is the insured Medical (General) History Medical History History ICD Code colonoscopy 2008 due in 10 y ears; colonoscopy done 10/03/[address] Smith - repeat 10 years, colonoscopy 03/16, pending path, if negative no further testng is req. annual appt with [employer]NER, Dr. Carey meyer, [facility]; Pap smear - 03/2013 cough due to han inhib
--- OUTSIDE RECORDS SUMMARY | 2024-12-09 17:12 | XMS_ITS | Patient Health Record ---
Author Organization [facility] Address [address] [place] [address] Care Team Providers Care Furnace Charger Name Role Phone Fadi Ariza MD Primary Care Provider Jignesh Carter Unavailable [phone] Allergies Allergen (clinical drug ingredient) Drug/Non Drug Allergy documented on EMR Reaction Allergy Type Onset Date Status indomethacin Indomethacin dizzyness Drug Allergy A ctive amoxicillin / clavulanate Augmentin rash Drug Allergy Active amoxicillin Amoxicillin rash Drug Allergy Act karen Reason For Referral No Information Medications Medication SIG (Take, Route, Frequency, Duration) Notes Start Date End Date Status Co Q 10 200 MG 1 capsule with a scotty l Orally Once a day Active Citalopram Hydrobromide 20 MG 1 tablet Orally Once a day Active Atorvastatin Calcium 20 MG 1 tablet Oral ly Once a day Active amLODIPine Besy-Benazepril HCl 2.5-10 MG as directed Orally Active Colchicine 0.6 MG 1 tablet Orally for 30 day(s) Active Valsartan-hydroCHLOROthiazi de 160-12.5 MG Oral for 90 Active Gabapentin 300 MG TAKE 1 CAPSULE BY [facility] AT BEDTIME FOR 3 DAYS, THEN TWICE A DAY FOR 3 DAYS, THEN THREE TIMES A DAY. Oral for 33 Active Omeprazole 20 MG 1 capsule Orally Onc e a day Active Naproxen 500 MG TAKE 1 TABLET BY MIRELA UP TO 3 TIMES A DAY NEEDED Oral every 12 hrs 1 daily Active Levothyroxine Sodium 100 MCG TAKE 1 TABLET EVERY DAY Orally Once a day Active Valsartan 40 MG 1 tablet Orally Twic e a day for 30 day(s) Active Lorazepam 1 tab Oral for 14 days Active Immunizations Vaccine Route Administration Date Status Comme nts Influenza Unknown 11/25/2016 Administered Influenza Unknown 02/03/2021 Administered Influenza Unknown 12/29/2021 Administered Social History Tobacco Use: Social History Observation Description Date Details (start date - stop date) Former Smoker NA - NA Tobacco Use/Smoking Question Answer Notes Patient is a former smoker When did you stop smoking? 1980 How long has it been since you last smoked? > 10 years Alcohol Screen Question Answer Notes Did you have a drink contain ing alcohol in the past year? Yes How often did you have a dri nk containing alcohol in the past year? 2 to 3 times a week (3 points) How many drinks did you have on a typical day when you were drinking in the past year? 1 or 2 drinks (0 point) How often did you have 6 or more drinks on one occasion in the past year? Never (0 point) Points 3 Interpretation Positive Section Notes: Nonsmoker, occasional glass of wine Nonsmoker, occasional glass of wine Nonsmoker, occasional glass of wine Problems Problem Type SNOMED Code ICD Code Onset Dates Problem Status W/U Status Risk Notes Problem Irritable bowel syndrome (54882227) Irritable bowel syndrome (K58.9) Active confirmed Problem 65747550 Rectal bleeding (K62.5) Active confirmed Problem 076061144 Change in bowel habits (R19.4) Active confirmed Problem Diverticular disease of colon (584563364) Diverticulosis of colon (without mention of hemorrhage) (K57.30) Active confirmed Problem Diverticulosis of colon (428669735) Diverticulosis of colon (K57.30) Active confirmed Plan Of Treatment Pending Test Test Name Order Date CELIAC PANEL #10 02/24/2021 Future Test Test Name Order Date COLONOSCOPY 08/17/2017 COLONOSCOPY 02/24/2021 Insurance Providers Payer Name Payer Address Payer Phone Subscriber Number Group Number Insured Name Patient Relationship to Insured Coverage Start Date Coverage End Date MEDICARE OF [place] [address] [facility] [address] [id number] FELIPE CONN Self - patient is the insured [facility] INDEMNITY [address] [place] [address] [id number] FELIPE CONN Self - patient is the insured Medical (General) History Medical History History ICD Code Denies AL,DM,CVA,Lung disease,renal dise ase Hypothyroidism Psoriatic arthritis GERD-EGD in 07/2008--small HH, otherwise negative Negative colonoscopy in 08/13 09 except for diverticulosis and internal hemorrhoids Hyperlipidemia Depression Neg. colonoscopy in 09/2017 Pinched nerve in back for which she is o n prednisone as of the 12/2021 OV She reports a history of pse udogout as of the 01/15 OV--she was started on a trial of colchicine Colonoscopy in February was normal--biopsies from terminal ileum and colon were negative for any sign of underlying inflammatory bowel disease nor microscopic colitis; there were no polyps Negative laboratories for celiac disease in February of 2021 Surgical History Surgery Date(Month/Year) Tonsillectomy age 21
--- OUTSIDE RECORDS SUMMARY | 2024-12-09 17:12 | XMS_ITS | Clinical Summary ---
Author Organization [facility] Address [address] [employer] [address] [facility] [address] [place] [phone] Phone Care Team Providers Care Media Associate Name Role Phone Fadi Ariza MD Primary Care Provider Allergies Active Allergy Reactions Criticality Noted Date Comments Penicillins 10/09/2019 rash Medications atorvastatin (LIPITOR) 40 MG tablet Take 40 mg by mouth daily. Active citalopram (CELEXA) 40 MG tablet Take 40 mg by mouth daily. Active omeprazole (PRILOSEC) 20 mg TbEC Take 20 mg by mouth daily before breakfast. Active levothyroxine (SYNTHROID, LEVOTHROID) 100 MCG tablet Take 100 mcg by mouth every morning. Active Active Problems Problem Noted Date Diagnosed Date Hypothyroid 10/09/2019 Other hyperlipidemia 10/09/2019 Dysthymia 10/09/2019 Social History Tobacco Use Types Packs/Day Years Used Date Smoking Tobacco: Former Smokeless Tobacco: Never Comments:quit in 1979 Alcohol Use Standard Drinks/Week Comments Yes 0 (1 standard drink = 0.6 oz pur e alcohol) occasionally Education Answer Date Recorded Are you interested in more education? Not on vineet e 07/22/2022 Are you concerned about learning? Not on file 07/22/2022 No 07/22/2022 No 07/22/2022 Digital Access Answer Date Recorded No 08/20/2022 No 08/20/2022 No 08/20/2022 Reliable internet access at home? Not on file 08/20/2022 Device with a working camera? Not on file Comments Unknown Sex and Gender Information Value Date Recorded Sex Assigned at Not on file Legal Sex Female 5:10 PM EDT Gender Identity Not on file Sexual Orientation Not on file Last Filed Vital Signs Vital Sign Reading Time Taken Comments Blood Pressure 143/83 10/09/2019 5:29 PM EDT Pulse 78 10/09/2019 5:29 PM EDT Temperature 36.4 C (97.5 F) 10/09/2019 5:29 PM EDT Respiratory Rate - - Oxygen Saturation 96% 10/09/2019 5:29 PM EDT Inhaled Oxygen Concentration - - Weight 83.5 kg (184 lb) 10/09/2019 5:29 PM EDT Height 165.1 cm (5' 5 ) 10/09/2019 5:29 PM EDT Body Mass Index 30.62 10/09/2019 5:29 PM EDT Plan of Treatment Health Maintenance Due Date Last Done Comments Adult Td,Tdap Booster 1950 LIPID PANEL 1950 TSH LEVEL 1950 DEPRESSION SCREENING 1962 SMOKING Hx and SMOKELESS TOBACCO SCREENING 06/29/1963 HEPATITIS C SCREENING 1968 MAMMOGRAM 1990 COLOGUARD 06/29/1995 COLONOSCOPY 06/29/1995 COLORECTAL CANCER SCREENING 06/29/1995 FIT TEST 06/29/1995 FOBT 06/29/1995 SIGMOIDOSCOPY 06/29/1995 VIRTUAL COLONOSCOPY 06/29/1995 ZOSTER VACCINES (1 of 2) 2000 OSTEOPOROSIS SCREENING INITIAL (ONE-TIME) 06/29/2015 PNEUMOCOCCAL VACCINES (50+ years) (2 of 2 - PCV) 01/14/2017 01/15/2016 INFLUENZA VACCINE (#1) 2024 0, 05/07/2019, 01/31/2018, Additional history exists COVID-19 VACCINE (3 - season) 2024 05/01/2020, 04/10/2020 RSV VACCINE (1 - 1-dose 75+ series) 2025 HEPATITIS A VACCINES Aged Out No long er eligible based on patient's age to complete this topic HIB VACCINES Aged Out No longer eligi ble based on patient's age to complete this topic MENINGOCOCCAL VACCINES (ACWY) Aged Out No longer eligible based on patient's age to complete this topic MENINGOCOCCAL VACCINES (B) Aged Out N o longer eligible based on patient's age to complete this topic Medical Devices Not on file Insurance MEDICARE PART A & B [employer] MEDICARE SUPPLEMENT MEDICARE PART A & B [employer] MEDICARE SUPPLEMENT MEDICARE PART A & B [facility] EXTENSION MEDICARE SUPPLEMENT MEDICARE PART A & B [id number] EXTENSION MEDICARE SUPPLEMENT [facility]ARE PART A & [facility] SUPPLEMENT MEDICARE PART A & B [facility] EXTENSION MEDICARE SUPPLEMENT MEDICARE PART A & B Member Subscriber Plan / Payer (Ef fective 2015-Present) Name:Layla Lane Member ID:[id number] Relation to Subscriber:Self Name:Layla Lane Subscriber ID:[id number] Payer ID:[id number] Group ID:Not on file Type:Medicare Address: [employer] [address] [place] [id number] [place] [address] MEDICARE SUPPLEMENT MEDICARE PART A & B [email or web address] EXTENSION MEDICARE SUPPLEMENT MEDICARE PART A & B [email or web address] EXTENSION MEDICARE SUPPLEMENT Care Teams Media Associate Relationship Specialty Start Date End Date Fadi Ariza MD [address] [place] [address] [place] [id number] PCP - General Internal Medicine 10/09/19 Additional Source Comments The information contained in this document represents components of the legal health record. It is not the complete legal health record.[facility]
== END 2024-12-09 12:30 | disposition home or self-care (01) ==
LOC: HO.LNP 12:29
PROVIDERS: Visit Provider Internal Medicine
DX: K58.9 Irritable bowel syndrome, unspecified (principal); Z13.29 Encounter for screening for other suspected endocrine disorder
CPT/HCPCS: 84439; 84443

== ENCOUNTER 2025-01-24 11:01 | Outpatient (REF) | payer MEDICARE, OTHER, SELFPAY ==
--- OUTSIDE RECORDS SUMMARY | 2024-01-26 04:00 | XMS_ITS ---
Author Organization Fadi Ariza MD Address [address] [place] [phone] Care Team Providers Care Director Of Broadcast Name Role Phone Fadi Ariza Primary Care Provider Allergies Allergen (clinical drug ingredient) Drug/Non Drug Allergy documented on EMR Reaction Allergy Type Onset Date Status Keflex rash Drug Allergy Active amoxicillin Amoxicillin rash Drug Allergy Act karen indomethacin Indomethicin (uncoded) dizziness Allergy Active amoxicillin / clavulanate AUGMENTIN (uncoded) RASH Allergy Active REASON FOR VISIT review labs Medications Medication SIG (Take, Route, Frequency, Duration) Notes Start Date End Date Status Atorvastatin Calcium 40 MG TAKE 1 TABLET BY MOUTH EVERY DAY Active Albuterol Sulfate HFA 108 (90 Base) MCG/ACT 1 puff as needed Inhalation every 4 hrs 06/06/2022 Not-Takin g Ativan 0.5 MG 1 tablet as needed Orally every 6 hrs for 5 days 05/23/2023 Not-Taking Ventolin HFA 108 (90 Base) MCG/ACT 2 puffs as needed Inhalation every 4 hrs for 30 days 11/09/2012 Not-Taking Valsartan-hydroCHLOROthiaz geni 320-12.5 MG TAKE 1 TABLET BY MOUTH EVERY DAY FOR 90 DAYS Active Citalopram Hydrobromide 20 MG TAKE 2 TABLETS BY MOUTH EVERY DAY Active Levothyroxine Sodium 100 MCG TAKE 1 TABLET BY MOUTH EVERY DAY Active Omeprazole 20 MG TAKE 1 CAPSULE BY MOUTH EVERY DAY for 90 Active CoQ-10 200 MG 1 capsule with a scotty l Orally Once a day Active Social History Tobacco Use: Social History Observation Description Date Details (start date - stop date) Former Smoker NA - NA Tobacco Use/Smoking Question Answer Notes Patient is a former smoker How long has it been since y ou last smoked? > 10 years Additional Findings: Tobacco Non-User Fo rmer smoker, currently using no form of tobacco Alcohol Screen Question Answer Notes Did you have a drink contain ing alcohol in the past year? Yes How often did you have a dri nk containing alcohol in the past year? 2 to 4 times a month (2 points) How many drinks did you have on a typical day when you were drinking in the past year? 1 or 2 drinks (0 point) How often did you have 6 or more drinks on one occasion in the past year? Never (0 point) Points 2 Interpretation Negative Vital Signs Blood pressure systolic 132 mm Hg 01/26/20 24 Blood pressure diastolic 64 mm Hg 024 Height 66 in 01/26/2024 Weight 196 lbs 01/26/2024 BMI 31.63 kg/m2 01/26/2024 weight is up 4 pounds since 08-18-23 Encounters Encounter Location Date Provider Diagnosis Fadi Ariza MD [address] [place] [address] [place] [phone] 01/26/2024 Fadi Ariza Acquired hypothyroid ism E03.9 ; Neutropenia, unspecified type D70.9 ; Bruxism F45.8 ; Dysthymia F34.1 ; Pure hypercholesterolemia E78.00 ; Essential hypertension I10 and Depression screening Z13.31 Assessments Encounter Date Diagnosis (ICD Code) Assessment Notes Treatment Notes Treatment Clinical Notes Section Notes 01/26/2024 Acquired hypothyroid ism (ICD-10 - E03.9) has good tsh, is at goal, will continue curent regiment 01/26/2024 Neutropenia, unspeci fied type (ICD-10 - D70.9) has had this before, will continue to monitor 01/26/2024 Bruxism (ICD-10 - F45.8) goi ng to physical therapy 01/26/2024 Dysthymia (ICD-10 - F34.1) stable, will continue current regiment 01/26/2024 Pure hypercholesterolemia (ICD-10 - E78.00) stable, at goal, will continue current regiment 01/26/2024 Essential hypertensi on (ICD-10 - I10) doing well, will continue current regiment 01/26/2024 Depression screening (ICD-10 - Z13.31) negative screen Plan Of Treatment Medication Medication Name Sig Start Date Stop Date Notes Atorvastatin Calcium 40 MG TAKE 1 TABLET BY MOUTH EVERY DAY Valsartan-hydroCHLOROthiazid e 320-12.5 MG TAKE 1 TABLET BY MOUTH EVERY DAY FOR 90 DAYS Citalopram Hydrobromide 20 MG TAKE 2 TAB LETS BY MOUTH EVERY DAY Levothyroxine Sodium 100 MCG TAKE 1 TABL ET BY MOUTH EVERY DAY Treatment Notes Assessment Notes Acquired hypothyroidism has good tsh, is at goal, will continue curent regiment Neutropenia, unspecified type has had th is before, will continue to monitor Bruxism going to physical th erapy Dysthymia stable, will continu e current regiment Pure hypercholesterolemia stable, at goa l, will continue current regiment Essential hypertension doing well, will continue current regiment Depression screening negative screen Next Appt Details Follow Up: 6 Months, Reason: Provider Name:Fadi zamudio, 01/30/2025 08:00:00 AM, [address] [place] [address], [address], [place], [place], [phone], Progress Notes * Layla CONNDOB:[birth year] (73 yo F)Acc No.[id number]:01/26/2024 Patient: Layla Fink Provider: Kathia Ariza MD :1950 A ge:73 Y S ex:Female Date:01/26/2024 Address:[address] [place], [place] [phone] Subjective: * Chief Complaints: * R eview labs * HPI: D epression Screening: PHQ-9 L ittle interest or pleasure in doing things N ot at all, F eeling down, depressed, or hopeless N ot at all, T rouble falling or staying asleep, or sleeping too much N ot at all, F eeling tired or having little energy N ot at all, P oor appetite or overeating N ot at all, F eeling bad about yourself or that you are a failure, or have let yourself or your family down N ot at all, T rouble concentrating on things, such as reading the newspaper or watching television N ot at all, M oving or speaking so slowly that other people could have noticed; or the opposite, being so fidgety or restless that you have been moving around a lot more than usual N ot at all, T houghts that you would be better off or of hurting yourself in some way N ot at all, T otal Score 0 . I nterpretation and Intervention D epression Screening Findings N egative, F ollow-Up for Depression : review of PHQ-9 found negative result, no follow-up needed. C ommunication Needs: Communication Needs D oes the patient have a hearing impairment N o, D oes the patient have a vision impairment? Y es, I f yes, what is the vision impairment? G lasses, D oes the patient have a cognition impairment? N o. F all Risk: History H ave you had any falls with injury in the past year? N o, H ave you had two or more falls in the past year? N o. S NETTE Questions: SDOH Questions I n the past year have you been worried about losing housing? N o, I n the past year have you or any family members you live with been unable to get any of the following when it was really needed? Check all that apply: N one. S ymptom(s): patient is a 73 yo female here for review of recent labs and follow up of chronic issues, has been doing well. * ROS: G eneral/Constitutional: Patient denies f atigue , headache. C hange in appetite?denies. C hills d enies. F ever d enies. O phthalmologic: Blurred vision d enies. D ischarge d enies. P ain d enies. E NT: Patient denies d ecreased sense of smell , any loss of taste , sore throat. D ecreased hearing d enies. S ore throat d enies. S wollen glands d enies. E ndocrine: Cold intolerance d enies. E xcessive thirst d enies. H eat intolerance d enies. W eight loss d enies. R espiratory: Cough d enies. S hortness of breath at rest d enies. S hortness of breath with exertion d enies. W heezing d enies. C ardiovascular: Chest pain at rest d enies. C hest pain with exertion?denies. I rregular heartbeat d enies. S hortness of breath d enies. ? G astrointestinal: Abdominal pain d enies. C hange in bowel habits d enies. D iarrhea d enies. N ausea d enies. R ectal bleeding d enies. V omiting d enies . G enitourinary: Blood in urine d enies. D ifficulty urinating d enies. F requent urination d enies. U rinary incontinence D enies. M usculoskeletal: Patient denies m uscle aches. P ainful joints d enies. W eakness d enies. P eripheral Vascular: Patient denies r ed and blue toes. S kin: Dry skin d enies. I tching d enies. D enies?Mole(s), changes in moles, new moles or any lesions of concern. D enies P hotosensitivity. R mark d enies. N eurologic: Dizziness d enies. F ainting d enies. H eadache?denies. * Medical History: * Surgical History: * Hospitalization/Major Diagno stic Procedure: * Family History: F ather: 79 yrs. M other: alive 92 yrs. S on(s): alive 50 yrs. 2 brother(s) , 2 sister(s) . 2 son(s) . . Father- Testicular Cancer Mother- Healthy, Denies mental health/substance abuse family history, Denies mental health/substance abuse family history, No pertinent family medical history. * Social History: T obacco Use: T obacco Use/Smoking P atient is a f ormer smoker, H ow long has it been since you last smoked? > 10 years, A dditional Findings: Tobacco Non-User F ormer smoker, currently using no form of tobacco. D rugs/Alcohol: A lcohol Screen D id you have a drink containing alcohol in the past year? Y es, H ow often did you have a drink containing alcohol in the past year? 2 to 4 times a month (2 points), H ow many drinks did you have on a typical day when you were drinking in the past year? 1 or 2 drinks (0 point), H ow often did you have 6 or more drinks on one occasion in the past year? N ever (0 point), P oints 2 , I nterpretation N egative. M iscellaneous: C affeine: yes, frequency:, 2-3 cups per day. Children: yes. Community involvements: yes, golf,. no Exercise. Housing: owning. Living with: alone. Marital status: . Occupation: works full-time. Pets: cat x1, dog x1. no Travel outside of the [place]. * Medications: T akingCoQ-10 200 MG Capsule 1 capsule with a meal Orally Once a dayCitalopram Hydrobromide 20 MG Tablet TAKE 2 TABLETS BY MOUTH EVERY DAY Omeprazole 20 MG Capsule Delayed Release TAKE 1 CAPSULE BY MOUTH EVERY DAY Levothyroxine Sodium 100 MCG Tablet TAKE 1 TABLET BY MOUTH EVERY DAY Valsartan-hydroCHLOROthiazide 320-12.5 MG Tablet TAKE 1 TABLET BY MOUTH EVERY DAY FOR 90 DAYS Atorvastatin Calcium 40 MG Tablet TAKE 1 TABLET BY MOUTH EVERY DAY Taking CoQ-10 200 MG Capsule 1 capsule with a meal Orally Once a dayTaking Citalopram Hydrobromide 20 MG Tablet TAKE 2 TABLETS BY MOUTH EVERY DAY Taking Omeprazole 20 MG Capsule Delayed Release TAKE 1 CAPSULE BY MOUTH EVERY DAY Taking Levothyroxine Sodium 100 MCG Tablet TAKE 1 TABLET BY MOUTH EVERY DAY Taking Valsartan-hydroCHLOROthiazide 320-12.5 MG Tablet TAKE 1 TABLET BY MOUTH EVERY DAY FOR 90 DAYS Taking Atorvastatin Calcium 40 MG Tablet TAKE 1 TABLET BY MOUTH EVERY DAY Not-Taking/PRNAlbuterol Sulfate HFA 108 (90 Base) MCG/ACT Aerosol Solution 1 puff as needed Inhalation every 4 hrsAtivan 0.5 MG Tablet 1 tablet as needed Orally every 6 hrsVentolin HFA 108 (90 Base) MCG/ACT Aerosol Solution 2 puffs as needed Inhalation every 4 hrsNot-Taking/PRN Albuterol Sulfate HFA 108 (90 Base) MCG/ACT Aerosol Solution 1 puff as needed Inhalation every 4 hrsNot-Taking/PRN Ativan 0.5 MG Tablet 1 tablet as needed Orally every 6 hrsNot-Taking/PRN Ventolin HFA 108 (90 Base) MCG/ACT Aerosol Solution 2 puffs as needed Inhalation every 4 hrsDiscontinuedPaxlovid (300/100) 20 x 150 MG & 10 x 100MG Tablet Therapy Pack 3 tablets Orally Twice a dayMedication List reviewed and reconciled with the patientDiscontinued Paxlovid (300/100) 20 x 150 MG & 10 x 100MG Tablet Therapy Pack 3 tablets Orally Twice a dayMedication List reviewed and reconciled with the patient * Allergies: A UGMENTIN: RASHIndomethicin: dizzinessAmoxicillin: rashKeflex: rashyes[Allergies Verified] Objective: * Vitals: H t: 66, Wt:196, BMI:31.63, BP:132/64 weight is up 4 pounds since 08-18-23. * P ast Orders: L ab:Lipid Panel (Order Date - 01/18/2024) (Collection Date - 01/18/2024) Value Reference Range Triglycerides 121 <150 - mg/dL Cholesterol 173 <200 - mg/dL LDL Cholesterol Calculated 97 <100 - mg/dL HDL Cholesterol 52 >40 - mg/dL L ab:TSH reflex Free T4 (Order Date - 01/18/2024) (Collection Date - 01/18/2024) Value Reference Range TSH reflex Free T4 1.47 0.32-4.0 - uIU/mL L ab:UA ClnCatch+Micro w/rflx Cult (Order Date - 01/18/2024) (Collection Date - 01/18/2024) Value Reference Range Color Urine Yellow - Appearance Urine Clear - PH 5.5 5.0-9.0 - Glucose Urine UA Negative Negative - mg/dL Urine Blood Negative Negative - Specific Patterson - Urine 1.010 1.005-1.025 - Urine Protein Negative Neg-Trace - mg/dL Urine Ketones Negative Negative - mg/dL Nitrite Urine Negative Negative - Leukocyte Esterase Urine Trace A Negative - RBC Urine 0-2 0-2 - /HPF WBC Urine 0-5 0-5 - /HPF Squamous Epithelial Cell Urine 0-2 0-2 - /HP F Bacteria Urine None Seen None Seen - Hyaline Casts Urine 0-2 0-2 - /LPF L ab:Complete Blood Count Auto Diff (Order Date - 01/18/2024) (Collection Date - 01/18/2024) Value Reference Range White Blood Count 3.5 L 4.8-10.8 - X10*3/uL Red Blood Count 4.20 4.20-5.50 - X10*6/uL Hemoglobin 12.7 12.0-16.0 - g/dl Hematocrit 37.5 37.0-47.0 - % Mean Corpuscular Volume 89.3 80.0-98.0 - fL Mean Corpuscular Hemoglobin 30.2 27.0-33.0 - pg Mean Corpuscular HGB Conc 33.9 31.0-35.0 - g/ dl Red Cell Distribution Width 12.5 11.0-16.0 - % Platelet Count 231 160-400 - X10*3/uL Mean Platelet Volume 9.7 9.4-12.3 - fL Neutrophils Percent Auto 51.4 45-73 - % Imm Gran Pct Auto 0.6 H 0.0-0.4 - % Lymphocytes Percent Auto 26.9 20-40 - % Monocytes Percent Auto 13.9 H 2-11 - % Eosinophils Percent Auto 5.8 H 0-4 - % Basophils Percent Auto 1.4 0-2 - % NRBC Pct Auto 0.0 0.0-0.2 - /100WBC Neutrophils Absolute Auto 1.8 L 2.0-8.3 - x10* 3/uL Imm Gran Abs Auto 0.02 0.00-0.03 - X10*3/uL Lymphocytes Absolute Auto 0.9 L 1.2-4.9 - X10* 3/uL Monocytes Absolute Auto 0.5 0.1-1.2 - X10*3/ uL Eosinophils Absolute Auto 0.2 0.0-0.4 - X10* 3/uL Basophils Absolute Auto 0.1 0.0-0.2 - X10*3/ uL NRBC Abs Auto 0.000 0.0-0.012 - X10*3/uL L ab:Comprehensive [place]. Panel Fast (Order Date - 01/18/2024) (Collection Date - 01/18/2024) Value Reference Range Sodium 139 135-145 - mmol/L Bilirubin Total 0.3 0.0-1.0 - mg/dL Aspartate Amino Transferase 28 5-31 - U/L Alanine Aminotransferase 24 0-31 - U/L Total Protein 6.3 L 6.5-8.0 - g/dL Albumin Level 4.0 3.5-5.0 - g/dL Alkaline Phosphatase 93 39-117 - U/L Potassium 4.0 3.3-5.1 - mmol/L Chloride 105 96-108 - mmol/L Carbon Dioxide 27 22-29 - mmol/L Anion Gap 11 L 12-20 - Blood Urea Nitrogen 12 9-16 - mg/dL Creatinine 0.77 0.5-1.4 - mg/dL Estimated Glomerular Filt Rate > 60 - Glucose Fasting 93 60-99 - mg/dL Calcium 9.4 8.4-10.2 - mg/dL * Examination: G eneral Examination: GENERAL APPEARANCE: w ell developed, well nourished, in no acute distress. HEAD: n ormocephalic, atraumatic. EYES: p upils equal, round, reactive to light and accommodation, sclera non-icteric. EARS: n ormal. ORAL CAVITY: m ucosa moist. THROAT: c lear. NECK/THYROID: n laura supple, full range of motion, no cervical lymphadenopathy, no bruits. SKIN: w arm and dry, no suspicious lesions. HEART: r egular rate and rhythm, S1, S2 normal, no murmurs.? LUNGS: c lear to auscultation bilaterally. BREASTS: d one by autism tutor. ABDOMEN: s oft, nontender, nondistended, bowel sounds present, normal, no organomegaly , no masses palpable. RECTAL EXAM: d one by autism tutor. FEMALE GENITOURINARY: d one by autism tutor. EXTREMITIES: n o clubbing, cyanosis, or edema. NEUROLOGIC: n onfocal, motor strength normal upper and lower extremities, sensory exam intact. Assessment: * Assessment: 1. A cquired hypothyroidism - E03.9 (Primary) 2 . N eutropenia, unspecified type - D70.9 3 . B ruxism - F45.8 4 . D ysthymia - F34.1 5 . P ure hypercholesterolemia - E78.00 6 . E ssential hypertension - I10 7 . D epression screening - Z13.31 Plan: * Treatment: 2. N eutropenia, unspecified type L AB: Complete Blood Count Auto Diff (Ordered for 07/25/2024) L AB: Liver Panel (Ordered for 07/25/2024) L AB: Lipid Panel (Ordered for 07/25/2024) Notes: has had this before, will continue to monitor 3. B ruxism Notes: going to physical therapy 4. D ysthymia Continue Citalopram Hydrobromide Tablet, 20 MG, TAKE 2 TABLETS BY MOUTH EVERY DAY. Notes: stable, will continue current regiment 5. P ure hypercholesterolemia Continue Atorvastatin Calcium Tablet, 40 MG, TAKE 1 TABLET BY MOUTH EVERY DAY. Notes: stable, at goal, will continue current regiment 6. E ssential hypertension Continue Valsartan-hydroCHLOROthiazide Tablet, 320-12.5 MG, TAKE 1 TABLET BY MOUTH EVERY DAY FOR 90 DAYS. Notes: doing well, will continue current regiment 7. D epression screening Notes: negative screen * Procedure Codes: * Follow Up: 6 Months * * Sign off status: Completed true * Provider: Kathia Ariza MD Date: 03/27/2023 Generated for Tor lamb/Nancy/Michael on: 12:35 PM EDT History and Physical Notes * HPI (History of Present Illness) Category Sub-Category Detail Notes Category Not es Symptom(s) patient is a 73 yo female here for review of recent labs and follow up of chronic issues, has been doing well Depression Screening PHQ-9 Little inte rest or pleasure in doing things: Not at all Feeling down, depressed, or hopeless: No t at all Trouble falling or staying asleep, or sl eeping too much: Not at all Feeling tired or having little energy: N ot at all Poor appetite or overeating: Not at all Feeling bad about yourself o r that you are a failure, or have let yourself or your family down: Not at all Trouble concentrating on thi ngs, such as reading the newspaper or watching television: Not at all Moving or speaking so slowly that other people could have noticed; or the opposite, being so fidgety or restless that you have been moving around a lot more than usual: Not at all Thoughts that you would be [place] off or of hurting yourself in some way: Not at all Total Score: 0 Interpretation and Intervention Depression Katrin espana Findings: Negative Follow-Up for Depression: : review of PH Q-9 found negative result, no follow-up needed SDOH Questions SDOH Questions In the past year have you been worried about losing housing?: No In the past year have you or any family members you live with been unable to get any of the following when it was really needed? Check all that apply:: None Fall Risk History Have you had any falls with injury i n the past year?: No Have you had two or more falls in the year?: No Communication Needs Communication Needs Does the patient have a hearing impairment: No Does the patient have a vision impairmen t?: Yes If yes, what is the vision impairment?: Glasses Does the patient have a cognition impair ment?: No Examination Category Sub-Category Detail Notes Category Not es General Examination GENERAL APPEARANCE: well dev eloped, well nourished, in no acute distress HEAD: normocephalic, atrau matic EYES: pupils equal, round, reactive to light and accommodation, sclera non-icteric EARS: normal THROAT: clear NECK/THYROID: neck supple, full ra nge of motion, no cervical lymphadenopathy, no bruits HEART: regular rate and rhy thm, S1, S2 normal, no murmurs LUNGS: clear to auscultatio n bilaterally ABDOMEN: soft, nontender, non distended, bowel sounds present, normal, no organomegaly , no masses palpable NEUROLOGIC: nonfocal, motor stre ngth normal upper and lower extremities, sensory exam intact SKIN: warm and dry, no alysa picious lesions EXTREMITIES: no clubbing, cyanosi s, or edema BREASTS: done by autism tutor RECTAL EXAM: done by autism tutor FEMALE GENITOURINARY: done by autism tutor ORAL CAVITY: mucosa moist
--- OUTSIDE RECORDS SUMMARY | 2024-04-09 04:56 | XMS_ITS ---
Author Organization Fadi Ariza MD Address [address] [place] [phone] Care Team Providers Care Youth Accommodation Support Worker Name Role Phone Fadi Ariza Primary Care Provider REASON FOR VISIT Tested positive for covid Encounters Encounter Location Date Provider Diagnosis Fadi Ariza MD [address] [facility] [address] [place] [phone] 04/09/2024 Fadi Ariza Plan Of Treatment Next Appt Details Provider Name:Fadi Lugo ier, 01/30/2025 08:00:00 AM, [address], [address] [place] [address], [phone], Progress Notes * Layla CONNDOB:[birth year] (73 yo F)Acc No.[id number]:04/09/2024 Patient: Catie Layla aguilar :1950 A ge:73 Y S ex:Female Address:[address] [place] [id number] * true * Date: Generated for Printi /Nancy/Michael on: 1 12:34 PM EDT
--- OUTSIDE RECORDS SUMMARY | 2024-04-09 05:45 | XMS_ITS ---
Author Organization Fadi Ariza MD Address [address] [place] [phone] Care Team Providers Care Manager Energy Name Role Phone Fadi Ariza Primary Care Provider REASON FOR VISIT Covid Medications Medication SIG (Take, Route, Frequency, Duration) Notes Start Date End Date Status Ventolin HFA 108 (90 Base) MCG/ACT 2 puffs as needed Inhalation every 4 hrs for 30 days 11/09/2012 Not-Taking Levothyroxine Sodium 100 MCG TAKE 1 TABLET BY MOUTH EVERY DAY Active Atorvastatin Calcium 40 MG TAKE 1 TABLET BY MOUTH EVERY DAY Active Citalopram Hydrobromide 20 MG TAKE 2 TABLETS BY MOUTH EVERY DAY for 90 Active Valsartan-hydroCHLOROthiaz geni 320-12.5 MG TAKE 1 TABLET BY MOUTH EVERY DAY for 90 Active CoQ-10 200 MG 1 capsule with a scotty l Orally Once a day Active Omeprazole 20 MG TAKE 1 CAPSULE BY MOUTH EVERY DAY for 90 Active Albuterol Sulfate HFA 108 (90 Base) MCG/ACT 1 puff as needed Inhalation every 4 hrs 06/06/2022 Not-Takin g Ativan 0.5 MG 1 tablet as needed Orally every 6 hrs for 5 days 05/23/2023 Not-Taking Encounters Encounter Location Date Provider Diagnosis Fadi Ariza MD [address] [place], [place] [phone] 04/09/2024 Fadi Ariza Plan Of Treatment Next Appt Details Provider Name:Fadi Moncada Jossuediogo ier, 01/30/2025 08:00:00 AM, [address], [address], [place], [place], [phone], Progress Notes * Layla CONNDOB:[birth year] (74 yo F)Acc No.[id number]:04/09/2024 Patient: Catie CONLEYKileyLayla Catherine Provider: Kathia Ariza MD :1950 A ge:73 Y S ex:Female Date:04/09/2024 Address:[address] [place], [place] [phone] Subjective: * Chief Complaints: * 1 . Covid. * Medical History: * Medications: T aking CoQ-10 200 MG Capsule 1 capsule with a meal Orally Once a day , Taking Omeprazole 20 MG Capsule Delayed Release TAKE 1 CAPSULE BY MOUTH EVERY DAY , Taking Levothyroxine Sodium 100 MCG Tablet TAKE 1 TABLET BY MOUTH EVERY DAY , Taking Atorvastatin Calcium 40 MG Tablet TAKE 1 TABLET BY MOUTH EVERY DAY , Taking Citalopram Hydrobromide 20 MG Tablet TAKE 2 TABLETS BY MOUTH EVERY DAY , Taking Valsartan-hydroCHLOROthiazide 320-12.5 MG Tablet TAKE 1 TABLET BY MOUTH EVERY DAY , Not-Taking/PRN Albuterol Sulfate HFA 108 (90 Base) MCG/ACT Aerosol Solution 1 puff as needed Inhalation every 4 hrs , Not-Taking/PRN Ativan 0.5 MG Tablet 1 tablet as needed Orally every 6 hrs , Not-Taking/PRN Ventolin HFA 108 (90 Base) MCG/ACT Aerosol Solution 2 puffs as needed Inhalation every 4 hrs Objective: * Vitals: Assessment: Plan: * Treatment: * * The named appointment provid er may or may not be the originator of this progress note, and it is not deemed complete until electronically signed by the appointment provider. Sign off status: Pending * Provider: Kathia Ariza MD Date: 0 04/09/2024 Generated for Tor lamb/Nancy/Michael on: 1 12:34 PM EDT
--- OUTSIDE RECORDS SUMMARY | 2024-08-27 03:00 | XMS_ITS ---
Author Organization Fadi Ariza MD Address [address] [place] [phone] Care Team Providers Care Armament Aircraft Mechanic Name Role Phone Fadi Ariza Primary Care Provider Results Component Value Reference Range Notes Complete Blood Count Auto Di ff Reviewed date:08/27/2024 04:42:59 PM Interpretation: Performing Lab:[facility], [address] [place] [phone] Notes/Report: White Blood Count 4.2 4.8-10.8 X10*3/uL Red Blood Count 4.39 4.20-5.50 X10*6/uL Hemoglobin 13.3 12.0-16.0 g/dl Hematocrit 39.6 37.0-47.0 % Mean Corpuscular Volume 90.2 80.0-98.0 fL Mean Corpuscular Hemoglobin 30.3 27.0-33.0 pg Mean Corpuscular HGB Conc 33.6 31.0-35.0 g/dl Red Cell Distribution Width 12.3 11.0-16.0 % Platelet Count 215 160-400 X10*3/uL Mean Platelet Volume 9.7 9.4-12.3 fL Neutrophils Percent Auto 53.4 45-73 % Imm Gran Pct Auto 0.7 0.0-0.4 % Lymphocytes Percent Auto 27.5 20-40 % Monocytes Percent Auto 14.5 2-11 % Eosinophils Percent Auto 2.7 0-4 % Basophils Percent Auto 1.2 0-2 % NRBC Pct Auto 0.0 0.0-0.2 /100WBC Neutrophils Absolute Auto 2.2 2.0-8.3 x10*3/u L Imm Gran Abs Auto 0.03 0.00-0.03 X10*3/uL Lymphocytes Absolute Auto 1.1 1.2-4.9 X10*3/u L Monocytes Absolute Auto 0.6 0.1-1.2 X10*3/uL Eosinophils Absolute Auto 0.1 0.0-0.4 X10*3/u L Basophils Absolute Auto 0.1 0.0-0.2 X10*3/uL NRBC Abs Auto 0.000 0.0-0.012 X10*3/uL Liver Panel Reviewed date:08/27/2024 12:29:00 PM Interpretation: Performing Lab:[facility], [address] [place] [phone] Notes/Report: Bilirubin Total 0.4 0.0-1.0 mg/dL Bilirubin Direct 0.1 0.0-0.5 mg/dL Aspartate Amino Transferase 28 5-31 U/L Alanine Aminotransferase 28 0-31 U/L Total Protein 6.6 6.5-8.0 g/dL Albumin Level 4.3 3.5-5.0 g/dL Alkaline Phosphatase 107 39-117 U/L Lipid Panel Reviewed date:08/27/2024 12:30:17 PM Interpretation: Performing Lab:[facility], [address] [place] [phone] Notes/Report: Triglycerides 173 <150 mg/dL Desirable Triglyceride: less than 150 mg/dL Borderline High Triglyceride 150-199 mg/dL High Triglyceride: 200-499 mg/dL Very High Triglyceride: greater than or equal to 5OO mg/dL Cholesterol 176 <200 mg/dL Desirable Cholesterol: less than 200 mg/dL Borderline High Cholesterol: 200-239 mg/dL High Cholesterol: greater than 239 mg/dL LDL Cholesterol Calculated 97 <100 mg/dL Desirable LDL: less than 100 mg/dL Near Optimal/Above Optimal LDL: 110-129 mg/dL Borderline High LDL: 130-159 mg/dL High LDL: 160-189 mg/dL Very High LDL: greater than or equal to 190 mg/dL HDL Cholesterol 45 >40 mg/dL Desirable HDL: greater than 40 mg/dL Note: This HDL assay may give artificially low results in patients with liver disease. TSH reflex Free T4 Reviewed date:08/27/2024 12:29:39 PM Interpretation: Performing Lab:[facility], [address] [place] [phone] Notes/Report: TSH reflex Free T4 4.70 0.32-4.0 uIU/mL REASON FOR VISIT FASTINGLIPIDS, LIVER PANEL, CBC AUTO DIFF, TSH REFLEX FREE T4 Encounters Encounter Location Date Provider Diagnosis Fadi Ariza MD [address] [place] [phone] 08/27/2024 Fadi Ariza Acquired hypothyroidism E03.9 and Neutropenia, unspecified type D70.9 Assessments Encounter Date Diagnosis (ICD Code) Assessment Notes Treatment Notes Treatment Clinical Notes Section Notes 08/27/2024 Acquired hypothyroidism (ICD-10 - E03.9) 08/27/2024 Neutropenia, unspecified type (ICD-10 - D70.9) Plan Of Treatment Next Appt Details Provider Name:Fadi Lugo ier, 01/30/2025 08:00:00 AM, [address] [place] [address], Suite [facility], [place], [place], [phone], Progress Notes * Layla CONNDOB:[birth year] (74 yo F)Acc No.[id number]:08/27/2024 Progress Note Patient: Layla DELGADO Catherine Provider: Kathia Ariza MD :1950 A ge:74 Y S ex:Female Date:08/27/2024 Address:[address] [place], [place] [phone] Subjective: * Chief Complaints: * 1 . FASTINGLIPIDS, LIVER PANEL, CBC AUTO DIFF, TSH REFLEX FREE T4. * Medical History: Objective: * Vitals: Assessment: * Assessment: 1. A cquired hypothyroidism - E03.9 (Primary) 2 . N eutropenia, unspecified type - D70.9 Plan: * Treatment: 2. N eutropenia, unspecified type L AB: Complete Blood Count Auto Diff (Collection Date & Time - 08/27/2024 07:00 AM) L AB: Liver Panel (Collection Date & Time - 08/27/2024 07:00 AM) L AB: Lipid Panel (Collection Date & Time - 08/27/2024 07:00 AM) * Procedure Codes: 3 6415 VENIPUNCT, ROUTINE* * * The named appointment provid er may or may not be the originator of this progress note, and it is not deemed complete until electronically signed by the appointment provider. Sign off status: Pending * Provider: Kathia Ariza MD Date: 0 08/27/2024 Generated for Tor lamb/Nancy/Michael on: 1 12:34 PM EDT
--- OUTSIDE RECORDS SUMMARY | 2024-09-03 06:15 | XMS_ITS ---
Author Organization Fadi Ariza MD Address [address] [place] [phone] Care Team Providers Care Poly Operator Name Role Phone Fadi Ariza Primary Care Provider [phone] Allergies Allergen (clinical drug ingredient) Drug/Non Drug Allergy documented on EMR Reaction Allergy Type Onset Date Status Keflex rash Drug Allergy Active amoxicillin Amoxicillin rash Drug Allergy Act karen indomethacin Indomethicin (uncoded) dizziness Allergy Active amoxicillin / clavulanate AUGMENTIN (uncoded) RASH Allergy Active REASON FOR VISIT 6 MO F/U Medications Medication SIG (Take, Route, Frequency, Duration) Notes Start Date End Date Status Albuterol Sulfate HFA 108 (90 Base) MCG/ACT 1 puff as needed Inhalation every 4 hrs 06/06/2022 Not-Takin g Omeprazole 20 MG TAKE 1 CAPSULE BY MOUTH EVERY DAY for 90 Active Levothyroxine Sodium 100 MCG TAKE 1 TABLET BY MOUTH EVERY DAY for 90 Active Ativan 0.5 MG 1 tablet as needed Orally every 6 hrs for 5 days 05/23/2023 Not-Taking Ventolin HFA 108 (90 Base) MCG/ACT 2 puffs as needed Inhalation every 4 hrs for 30 days 11/09/2012 Not-Taking Atorvastatin Calcium 40 MG TAKE 1 TABLET BY MOUTH EVERY DAY Active Valsartan-hydroCHLOROthiaz geni 320-12.5 MG TAKE 1 TABLET BY MOUTH EVERY DAY for 90 Active CoQ-10 200 MG 1 capsule with a scotty l Orally Once a day Active Hyoscyamine Sulfate ER 0.375 MG 1 tablet Orally once a day for 30 days 09/03/2024 Active Citalopram Hydrobromide 20 MG TAKE 2 TABLETS BY MOUTH EVERY DAY for 90 Active Levothyroxine Sodium 112 MCG 1 tablet in the morning on an empty stomach Orally Once a day for 90 days 09/03/2024 Active Naproxen 250 MG 1 tablet with food o r milk as needed Orally every 12 hrs Active Vital Signs Blood pressure systolic 100 mm Hg 09/04/19 25 Blood pressure diastolic 54 mm Hg 025 Height 66 in 09/03/2024 Weight 200 lbs 09/03/2024 BMI 32.28 kg/m2 09/03/2024 weight is up 4 pounds since 01-26-24 Encounters Encounter Location Date Provider Diagnosis Fadi Ariza MD [address] [place] [address] [place] [phone] 09/03/2024 Fadi Ariza Irritable bowel synd neil without diarrhea K58.9 ; Acquired hypothyroidism E03.9 and Pure hypercholesterolemia E78.00 Assessments Encounter Date Diagnosis (ICD Code) Assessment Notes Treatment Notes Treatment Clinical Notes Section Notes 09/03/2024 Irritable bowel syndrome without diarrhea (ICD-10 - K58.9) patient verbalized understanding of medication and directions for use 09/03/2024 Acquired hypothyroid ism (ICD-10 - E03.9) patient verbalized undersanding of medication and irections for use 09/03/2024 Pure hypercholesterolemia (ICD-10 - E78.00) stable, will continue current regiment Plan Of Treatment Medication Medication Name Sig Start Date Stop Date Notes Atorvastatin Calcium 40 MG TAKE 1 TABLET BY MOUTH EVERY DAY Hyoscyamine Sulfate ER 0.375 MG 1 tablet Orally once a day for 30 days 09/03/2024 Levothyroxine Sodium 112 MCG 1 tablet in the morning on an empty stomach Orally Once a day for 90 days 09/03/2024 Treatment Notes Assessment Notes Irritable bowel syndrome without diarrhe a patient verbalized understanding of medication and directions for use Acquired hypothyroidism patient verbaliz ed undersanding of medication and irections for use Pure hypercholesterolemia stable, will c ontinue current regiment Next Appt Details Follow Up: 3 Months, Reason: Provider Name:Fadi Lugo ier, 01/30/2025 08:00:00 AM, [address] [facility], [address], [place], [place], [phone], Progress Notes * Layla CONN CatherineDOB:[birth year] (74 yo F)Acc No.[id number]:09/03/2024 Progress Notes Patient: Layla DELGADO Provider: Kathia Ariza MD :1950 A ge:74 Y S ex:Female Date:09/03/2024 Address:[address] [place], [place] [phone] Subjective: * Chief Complaints: * 6 MO F/U * HPI: S ymptom(s): patient is a 74 yo female here for 6 month follow up visit. * ROS: G eneral/Constitutional: Denies C hills. D enies F atigue. D enies F ever. D enies H eadache. E NT: Denies S ore throat. R espiratory: Denies C ough. D enies S hortness of breath at rest. D enies S hortness of breath with exertion. G astrointestinal: Patient complaining of h as small frequent bm not diarrhea and feels like she is going to throw up. D enies A bdominal pain, c /o bloating. D enies B lood in stool. D enies C onstipation. D enies D iarrhea. A dmits N ausea. D enies V omiting, d ry heeves. * Medical History: * Surgical History: * Hospitalization/Major Diagno stic Procedure: * Medications: T akingNaproxen 250 MG Tablet 1 tablet with food or milk as needed Orally every 12 hrs CoQ-10 200 MG Capsule 1 capsule with a meal Orally Once a day Citalopram Hydrobromide 20 MG Tablet TAKE 2 TABLETS BY MOUTH EVERY DAY Valsartan-hydroCHLOROthiazide 320-12.5 MG Tablet TAKE 1 TABLET BY MOUTH EVERY DAY Atorvastatin Calcium 40 MG Tablet TAKE 1 TABLET BY MOUTH EVERY DAY Omeprazole 20 MG Capsule Delayed Release TAKE 1 CAPSULE BY MOUTH EVERY DAY Levothyroxine Sodium 100 MCG Tablet TAKE 1 TABLET BY MOUTH EVERY DAY Taking Naproxen 250 MG Tablet 1 tablet with food or milk as needed Orally every 12 hrs Taking CoQ-10 200 MG Capsule 1 capsule with a meal Orally Once a day Taking Citalopram Hydrobromide 20 MG Tablet TAKE 2 TABLETS BY MOUTH EVERY DAY Taking Valsartan-hydroCHLOROthiazide 320-12.5 MG Tablet TAKE 1 TABLET BY MOUTH EVERY DAY Taking Atorvastatin Calcium 40 MG Tablet TAKE 1 TABLET BY MOUTH EVERY DAY Taking Omeprazole 20 MG Capsule Delayed Release TAKE 1 CAPSULE BY MOUTH EVERY DAY Taking Levothyroxine Sodium 100 MCG Tablet TAKE 1 TABLET BY MOUTH EVERY DAY Not-Taking/PRNAlbuterol Sulfate HFA 108 (90 Base) MCG/ACT Aerosol Solution 1 puff as needed Inhalation every 4 hrs Ativan 0.5 MG Tablet 1 tablet as needed Orally every 6 hrs Ventolin HFA 108 (90 Base) MCG/ACT Aerosol Solution 2 puffs as needed Inhalation every 4 hrs Medication List reviewed and reconciled with the patientNot- Taking/PRN Albuterol Sulfate HFA 108 (90 Base) MCG/ACT Aerosol Solution 1 puff as needed Inhalation every 4 hrs Not-Taking/PRN Ativan 0.5 MG Tablet 1 tablet as needed Orally every 6 hrs Not-Taking/PRN Ventolin HFA 108 (90 Base) MCG/ACT Aerosol Solution 2 puffs as needed Inhalation every 4 hrs Medication List reviewed and reconciled with the patient * Allergies: A UGMENTIN: RASHIndomethicin: dizzinessAmoxicillin: rashKeflex: rashyes[Allergies Verified] Objective: * Vitals: H t: 66, Wt: 200, BMI:32.28, BP:100/54, Wt-k.72. weight is up 4 pounds since 01-26-24. * P ast Orders: L ab:Free T4 (Free Thyroxine) (Order Date - 08/27/2024) (Collection Date & Time - 08/27/2024 07:00 AM) Value Reference Range Free T4 (Free Thyroxine) 1.20 0.71-1.85 - ng/ dL L ab:Complete Blood Count Auto Diff (Order Date - 08/27/2024) (Collection Date & Time - 08/27/2024 07:00 AM) Value Reference Range White Blood Count 4.2 L 4.8-10.8 - X10*3/uL Red Blood Count 4.39 4.20-5.50 - X10*6/uL Hemoglobin 13.3 12.0-16.0 - g/dl Hematocrit 39.6 37.0-47.0 - % Mean Corpuscular Volume 90.2 80.0-98.0 - fL Mean Corpuscular Hemoglobin 30.3 27.0-33.0 - pg Mean Corpuscular HGB Conc 33.6 31.0-35.0 - g/ dl Red Cell Distribution Width 12.3 11.0-16.0 - % Platelet Count 215 160-400 - X10*3/uL Mean Platelet Volume 9.7 9.4-12.3 - fL Neutrophils Percent Auto 53.4 45-73 - % Imm Gran Pct Auto 0.7 H 0.0-0.4 - % Lymphocytes Percent Auto 27.5 20-40 - % Monocytes Percent Auto 14.5 H 2-11 - % Eosinophils Percent Auto 2.7 0-4 - % Basophils Percent Auto 1.2 0-2 - % NRBC Pct Auto 0.0 0.0-0.2 - /100WBC Neutrophils Absolute Auto 2.2 2.0-8.3 - x10* 3/uL Imm Gran Abs Auto 0.03 0.00-0.03 - X10*3/uL Lymphocytes Absolute Auto 1.1 L 1.2-4.9 - X10* 3/uL Monocytes Absolute Auto 0.6 0.1-1.2 - X10*3/ uL Eosinophils Absolute Auto 0.1 0.0-0.4 - X10* 3/uL Basophils Absolute Auto 0.1 0.0-0.2 - X10*3/ uL NRBC Abs Auto 0.000 0.0-0.012 - X10*3/uL L ab:Liver Panel (Order Date - 08/27/2024) (Collection Date & Time - 08/27/2024 07:00 AM) Value Reference Range Bilirubin Total 0.4 0.0-1.0 - mg/dL Bilirubin Direct 0.1 0.0-0.5 - mg/dL Aspartate Amino Transferase 28 5-31 - U/L Alanine Aminotransferase 28 0-31 - U/L Total Protein 6.6 6.5-8.0 - g/dL Albumin Level 4.3 3.5-5.0 - g/dL Alkaline Phosphatase 107 39-117 - U/L L ab:Lipid Panel (Order Date - 08/27/2024) (Collection Date & Time - 08/27/2024 07:00 AM) Value Reference Range Triglycerides 173 H <150 - mg/dL Cholesterol 176 <200 - mg/dL LDL Cholesterol Calculated 97 <100 - mg/dL HDL Cholesterol 45 >40 - mg/dL L ab:TSH reflex Free T4 (Order Date - 08/27/2024) (Collection Date & Time - 08/27/2024 07:00 AM) Value Reference Range TSH reflex Free T4 4.70 H 0.32-4.0 - uIU/mL Assessment: * Assessment: 1. I rritable bowel syndrome without diarrhea - K58.9 (Primary) 2 . A cquired hypothyroidism - E03.9 3 . P ure hypercholesterolemia - E78.00 ? Plan: * Treatment: 2. A cquired hypothyroidism Start Levothyroxine Sodium Tablet, 112 MCG, 1 tablet in the morning on an empty stomach, Orally, Once a day, 90 days, 90 Tablet, Refills 3. Notes: patient verbalized undersanding of medication and irections for use 3. P ure hypercholesterolemia Continue Atorvastatin Calcium Tablet, 40 MG, TAKE 1 TABLET BY MOUTH EVERY DAY. Notes: stable, will continue current regiment * Procedure Codes: * Follow Up: 3 Months * * Sign off status: Completed true * Provider: Kathia Ariza MD Date: 0 09/03/2024 Generated for Tor lamb/Nancy/Tristensmitting on: 1 12:35 PM EDT History and Physical Notes * HPI (History of Present Illness) Category Sub-Category Detail Notes Category Not es Symptom(s) patient is a 74 yo female here for 6 month follow up visit
--- OUTSIDE RECORDS SUMMARY | 2024-11-04 08:19 | XMS_ITS ---
Author Organization Fadi Ariza MD Address [address] [place] [phone] Care Team Providers Care Manager Functional Name Role Phone Fadi Ariza Primary Care Provider REASON FOR VISIT ER visit rec'd Encounters Encounter Location Date Provider Diagnosis Fadi Ariza MD 10 [facility] [address] [place] [phone] 11/04/2024 Fadi Ariza Plan Of Treatment Next Appt Details Provider Name:Fadi Lugo ier, 01/30/2025 08:00:00 AM, [address], Suite [facility], [place], [place], [phone], Progress Notes * Layla CONNDOB:[birth year] (74 yo F)Acc No.[id number]:11/04/2024 Patient: Catie Layla CONLEY :1950 A ge:74 Y S ex:Female Address:[address] [place] [phone] * true * Date: Generated for Printi /Nancy/Michael on: 1 12:36 PM EDT
--- OUTSIDE RECORDS SUMMARY | 2024-11-11 09:45 | XMS_ITS ---
Author Organization Fadi Ariza MD Address [address] [place] [phone] Care Team Providers Care Manager Green Name Role Phone Fadi Ariza Primary Care Provider [phone] Allergies Allergen (clinical drug ingredient) Drug/Non Drug [...] W/U Status Risk Notes Problem Cervical rib ([id number]) Cervical rib (Q76.5) Active confirmed Vital Signs Blood pressure systolic 108 mm Hg 11/12/19 25 Blood pressure diastolic 60 mm Hg 025 Height 66 in 11/11/2024 Weight 199 lbs 11/11/2024 BMI 32.12 kg/m2 11/11/2024 Encounters Encounter Location Date Provider Diagnosis Fadi Ariza MD [address] [place] [address] Drive [address] [place], [place] [phone] 11/11/2024 Fadi Ariza Head injury S09.90XA and [...] sept appt, Reason: Provider Name:Fadi Lugo ier, 01/30/2025 08:00:00 AM, [address] [place] [address], [address], [place], [place], [phone], Progress Notes * Kiley CONNsimin AlexanderDOB:[birth year] (74 yo F)Acc No.[id number]:11/11/2024 Progress Notes Patient: Layla DELGADO Provider: Kathia Ariza MD :1950 A ge:74 Y S ex:Female Date:11/11/2024 Address:[address] [place], [place] [phone] Subjective: * Chief Complaints: * f /u [...] * Procedure Codes: * Follow Up: c ancel sept appt * * Sign off status: Completed true * Provider: Kathia Ariza MD Date: 0 11/11/2024 Generated for Tor lamb/Nancy/Charissaitting on: 1 12:34 PM EDT History and Physical Notes * [...]
--- OUTSIDE RECORDS SUMMARY | 2024-12-09 04:15 | XMS_ITS ---
Author Organization Fadi Ariza MD Address [address] [place] [phone] Care Team Providers Care Building Consultant Name Role Phone Fadi Ariza Primary Care Provider [phone] Results Component Value Reference Range Notes TSH reflex Free T4 Reviewed date:12/09/2024 04:45:58 PM Interpretation: Performing Lab:[facility], [address] [place] [phone] Notes/Report: TSH reflex Free T4 6.31 0.32-4.0 uIU/mL REASON FOR VISIT TSH Encounters Encounter Location Date Provider Diagnosis Fadi Ariza MD [address] [facility] [address] [place] [phone] 12/09/2024 Fadi Ariza Irritable bowel syndrome without diarrhea K58.9 Assessments Encounter Date Diagnosis (ICD Code) Assessment Notes Treatment Notes Treatment Clinical Notes Section Notes 12/09/2024 Irritable bowel syndrome without diarrhea (ICD-10 - K58.9) Plan Of Treatment Next Appt Details Provider Name:Fadi zamudio, 01/30/2025 08:00:00 AM, [address], [address] [place] [address] [place], [phone], Progress Notes * Layla CONNDOB:[birth year] (74 yo F)Acc No.[id number]:12/09/2024 Progress Note Patient: Layla DELGADO Provider: Kathia Ariza MD :1950 A ge:74 Y S ex:Female Date:12/09/2024 Address:[address] [place], [place] [phone] Subjective: * Chief Complaints: * 1 . [...] * Provider: Kathia Ariza MD Date: 0 12/09/2024 Generated for Tor lamb/Nancy/Tristensmitting on: 1 12:35 PM EDT
--- OUTSIDE RECORDS SUMMARY | 2024-12-09 12:30 | XMS_ITS ---
Author Organization Fadi Ariza MD Address [address] [facility] [address] [place] [phone] Care Team Providers Care Mandarin Speaking Nanny Name Role Phone Fadi Ariza Primary Care Provider [phone] Allergies Allergen (clinical drug ingredient) Drug/Non Drug Allergy documented on EMR Reaction Allergy Type Onset Date Status Keflex rash Drug Allergy Active amoxicillin Amoxicillin rash Drug Allergy Act karen indomethacin Indomethicin (uncoded) dizziness Allergy Active amoxicillin / clavulanate AUGMENTIN (uncoded) RASH Allergy Active REASON FOR VISIT 3 month Encounters Encounter Location Date Provider Diagnosis Fadi Ariza MD [address] [facility] [address] [place] [phone] 12/09/2024 Fadi Ariza Plan Of Treatment Next Appt Details Provider Name:Fadi zamudio, 01/30/2025 08:00:00 AM, [address] [facility], Suite [facility], [place], [place], [phone], Progress Notes * Layla CONNDOB:[birth year] (74 yo F)Acc No.[id number]:12/09/2024 Progress Notes Patient: Layla DELGADO Provider: Kathia Ariza MD :1950 A ge:74 Y S ex:Female Date:12/09/2024 Address:[address] [place], [place] [phone] Subjective: * Chief Complaints: * 1 . 3 month. * ROS: G eneral/Constitutional: Denies C hills. D enies F atigue. D enies F ever. D enies H eadache. E NT: Denies S wollen glands. R espiratory: Denies C ough. D enies S hortness of breath at rest. D enies S hortness of breath with exertion. G astrointestinal: Denies D iarrhea. D enies N ausea. * Medical History: c olonoscopy 2008 due in 10 years; colonoscopy done 10/03/[address] Smith - repeat 10 years, colonoscopy 03/16, pending path, if negative no further testng is req., annual appt with YOGA TEACHER, Dr. Carey Lee, [facility]; Pap smear - 03/2013, Cough due to han inhib. * Allergies: A UGMENTIN: RASH, Indomethicin: dizziness, Amoxicillin: rash, Keflex: rash. Objective: * Vitals: Assessment: Plan: * Treatment: * * The named appointment provid er may or may not be the originator of this progress note, and it is not deemed complete until electronically signed by the appointment provider. Sign off status: Pending * Provider: Kathia Ariza MD Date: 0 12/09/2024 Generated for Tor lamb/Nancy/Charissaitting on: 12:35 PM EDT
--- OUTSIDE RECORDS SUMMARY | 2025-01-24 03:15 | XMS_ITS ---
Author Organization Fadi Ariza MD Address [address] [place] [id number] Care Team Providers Care Lamp Decorator Name Role Phone Fadi Ariza Primary Care Provider Results Component Value Reference Range Notes Complete Blood Count Auto Di ff Reviewed date:01/24/2025 12:29:47 PM Interpretation: Performing Lab:[facility], [address] [place] [phone] Notes/Report: White Blood Count 3.5 4.8-10.8 X10*3/uL Red Blood Count 4.34 4.20-5.50 X10*6/uL Hemoglobin 12.9 12.0-16.0 g/dl Hematocrit 38.9 37.0-47.0 % Mean Corpuscular Volume 89.6 80.0-98.0 fL Mean Corpuscular Hemoglobin 29.7 27.0-33.0 pg Mean Corpuscular HGB Conc 33.2 31.0-35.0 g/dl Red Cell Distribution Width 12.7 11.0-16.0 % Platelet Count 205 160-400 X10*3/uL Mean Platelet Volume 9.3 9.4-12.3 fL Neutrophils Percent Auto 59.0 45-73 % Imm Gran Pct Auto 0.6 0.0-0.4 % Lymphocytes Percent Auto 22.8 20-40 % Monocytes Percent Auto 14.5 2-11 % Eosinophils Percent Auto 2.0 0-4 % Basophils Percent Auto 1.1 0-2 % NRBC Pct Auto 0.0 0.0-0.2 /100WBC Neutrophils Absolute Auto 2.1 2.0-8.3 x10*3/u L Imm Gran Abs Auto 0.02 0.00-0.03 X10*3/uL Lymphocytes Absolute Auto 0.8 1.2-4.9 X10*3/u L Monocytes Absolute Auto 0.5 0.1-1.2 X10*3/uL Eosinophils Absolute Auto 0.1 0.0-0.4 X10*3/u L Basophils Absolute Auto 0.0 0.0-0.2 X10*3/uL NRBC Abs Auto 0.000 0.0-0.012 X10*3/uL Comprehensive [place]. Panel Fa st Reviewed date:01/24/2025 12:28:47 PM Interpretation: Performing Lab:[facility], [address] [place] [phone] Notes/Report: Sodium 137 135-145 mmol/L Potassium 3.9 3.3-5.1 mmol/L Chloride 104 96-108 mmol/L Carbon Dioxide 27 22-29 mmol/L Anion Gap 10 12-20 Blood Urea Nitrogen 15 9-16 mg/dL Creatinine 0.71 0.5-1.4 mg/dL Estimated Glomerular Filt Rate > 60 Chronic Kidney Disease: Estimated GFR < 60 mL/min/1.73m2 Severe Kidney Disease: Estimated GFR < 15 mL/min/1.73m2 Glucose Fasting 93 60-99 mg/dL Calcium 9.1 8.4-10.2 mg/dL Bilirubin Total 0.6 0.0-1.0 mg/dL Aspartate Amino Transferase 29 5-31 U/L Alanine Aminotransferase 25 0-31 U/L Total Protein 6.5 6.5-8.0 g/dL Albumin Level 4.2 3.5-5.0 g/dL Alkaline Phosphatase 110 39-117 U/L Lipid Panel Reviewed date:01/24/2025 12:29:56 PM Interpretation: Performing Lab:[facility], [address] [place] [phone] Notes/Report: Triglycerides 124 <150 mg/dL Desirable Triglyceride: less than 150 mg/dL Borderline High Triglyceride 150-199 mg/dL High Triglyceride: 200-499 mg/dL Very High Triglyceride: greater than or equal to 5OO mg/dL Cholesterol 192 <200 mg/dL Desirable Cholesterol: less than 200 mg/dL Borderline High Cholesterol: 200-239 mg/dL High Cholesterol: greater than 239 mg/dL LDL Cholesterol Calculated 113 <100 mg/dL Desirable LDL: less than 100 mg/dL Near Optimal/Above Optimal LDL: 110-129 mg/dL Borderline High LDL: 130-159 mg/dL High LDL: 160-189 mg/dL Very High LDL: greater than or equal to 190 mg/dL HDL Cholesterol 55 >40 mg/dL Desirable HDL: greater than 40 mg/dL Note: This HDL assay may give artificially low results in patients with liver disease. TSH reflex Free T4 Reviewed date:01/24/2025 12:28:56 PM Interpretation: Performing Lab:[facility], [address] [place] [phone] Notes/Report: TSH reflex Free T4 2.68 0.32-4.0 uIU/mL REASON FOR VISIT FASTING LABS Immunizations Vaccine Route Administration Date Status Comme nts Influenza High Dose IM Intramuscular 01/24/2025 Administer ed Encounters Encounter Location Date Provider Diagnosis Fadi Ariza MD [address] [facility] [address] [place], [place] [id number] 01/24/2025 Fadi Ariza Acquired hypothyroid ism E03.9 ; Neutropenia, unspecified type D70.9 ; Pure hypercholesterolemia E78.00 ; Essential hypertension I10 ; AA (alcohol abuse) 305.00 and Encounter for administration of vaccine Z23 Assessments Encounter Date Diagnosis (ICD Code) Assessment Notes Treatment Notes Treatment Clinical Notes Section Notes 01/24/2025 Acquired hypothyroid ism (ICD-10 - E03.9) 01/24/2025 Neutropenia, unspeci fied type (ICD-10 - D70.9) 01/24/2025 Pure hypercholesterolemia (ICD-10 - E78.00) 01/24/2025 Essential hypertensi on (ICD-10 - I10) 01/24/2025 AA (alcohol abuse) (ICD9-CM - 305.00) 01/24/2025 Encounter for administration of vaccine (ICD-10 - Z23) Plan Of Treatment Pending Test Test Name Order Date UA ClnCatch+Micro w/rflx Cult 01/24/2025 Next Appt Details Provider Name:Fadi Lugo ier, 01/30/2025 08:00:00 AM, [address] [facility], [address], [place], [place], [id number], Progress Notes * FABIEN Layla AlexanderDOB:[birth year] (74 yo F)Acc No.[id number]:01/24/2025 Progress Note Patient: Layla DELGADO Provider: Kathia Ariza MD :1950 A ge:74 Y S ex:Female Date:01/24/2025 Address:[address] [place] [address] Subjective: * Chief Complaints: * 1 . FASTING LABS. * Medical History: Objective: * Vitals: Assessment: * Assessment: 1. A cquired hypothyroidism - E03.9 (Primary) 2 . N eutropenia, unspecified type - D70.9 3 . P ure hypercholesterolemia - E78.00 4 . E ssential hypertension - I10 5 . A A (alcohol abuse) - 305.00 6 . Encounter for administration of vaccine - Z23 Plan: * Treatment: 2. N eutropenia, unspecified type L AB: UA ClnCatch+Micro w/rflx Cult L AB: Complete Blood Count Auto Diff (Collection Date & Time - 01/24/2025 07:15 AM) L AB: Comprehensive [place]. Panel Fast (Collection Date & Time - 01/24/2025 07:15 AM) L AB: Lipid Panel (Collection Date & Time - 01/24/2025 07:15 AM) L AB: TSH reflex Free T4 (Collection Date & Time - 01/24/2025 07:15 AM) 3. P ure hypercholesterolemia L AB: UA ClnCatch+Micro w/rflx Cult L AB: Complete Blood Count Auto Diff (Collection Date & Time - 01/24/2025 07:15 AM) L AB: Comprehensive [place]. Panel Fast (Collection Date & Time - 01/24/2025 07:15 AM) L AB: Lipid Panel (Collection Date & Time - 01/24/2025 07:15 AM) L AB: TSH reflex Free T4 (Collection Date & Time - 01/24/2025 07:15 AM) 4. E ssential hypertension L AB: UA ClnCatch+Micro w/rflx Cult L AB: Complete Blood Count Auto Diff (Collection Date & Time - 01/24/2025 07:15 AM) L AB: Comprehensive [place]. Panel Fast (Collection Date & Time - 01/24/2025 07:15 AM) L AB: Lipid Panel (Collection Date & Time - 01/24/2025 07:15 AM) L AB: TSH reflex Free T4 (Collection Date & Time - 01/24/2025 07:15 AM) * Immunizations: Influenza High Dose : 0.5 mL (Dose No:1) (Route: Intramuscular) given by Deisi Burch , Office Staff on Left Deltoid * Procedure Codes: 3 6415 VENIPUNCT, ROUTINE*, 47989 FLU VACC PRSV FREE INC ANTIG, G0008 ADMN FLU VAC NO FEE SCHED SAME DAY * * The named appointment provid er may or may not be the originator of this progress note, and it is not deemed complete until electronically signed by the appointment provider. Sign off status: Pending * Provider: Kathia Ariza MD Date: Generated for Tor lamb/Nancy/Charissaitting on: 12:34 PM EDT
[2025-01-24 11:08] LABS: MANUAL DIFF FLAG NO
[2025-01-24 11:19] LABS: Hematocrit 38.9 % (37.0-47.0); Hemoglobin 12.9 g/dl (12.0-16.0); Imm Gran Abs Auto 0.02 X10*3/uL (0.00-0.03); Imm Gran Pct Auto 0.6 % (0.0-0.4); Lymphocytes Absolute Auto 0.8 X10*3/uL (1.2-4.9); Mean Corpuscular HGB Conc 33.2 g/dl (31.0-35.0); Mean Corpuscular Hemoglobin 29.7 pg (27.0-33.0); Mean Corpuscular Volume 89.6 fL (80.0-98.0); NRBC Abs Auto 0.000 X10*3/uL (0.0-0.012); NRBC Pct Auto 0.0 /100WBC (0.0-0.2); Platelet Count 205 X10*3/uL (160-400); Red Blood Count 4.34 X10*6/uL (4.20-5.50); White Blood Count 3.5 X10*3/uL (4.8-10.8)
[2025-01-24 11:46] LABS: Alanine Aminotransferase 25 U/L (0-31); Albumin Level 4.2 g/dL (3.5-5.0); Alkaline Phosphatase 110 U/L (39-117); Anion Gap 10 (12-20); Aspartate Amino Transferase 29 U/L (5-31); Blood Urea Nitrogen 15 mg/dL (9-16); Calcium 9.1 mg/dL (8.4-10.2); Carbon Dioxide 27 mmol/L (22-29); Chloride 104 mmol/L (96-108); Cholesterol 192 mg/dL (<200); Estimated Glomerular Filt Rate > 60; HDL Cholesterol 55 mg/dL (>40); Potassium 3.9 mmol/L (3.3-5.1); Sodium 137 mmol/L (135-145); Total Protein 6.5 g/dL (6.5-8.0); Triglycerides 124 mg/dL (<150)
--- OUTSIDE RECORDS SUMMARY | 2025-01-24 12:35 | XMS_ITS | Patient Health Record ---
Author Organization [facility] Address [address] [place] [address] Care Team Providers Care Emergency Department Nurse Name Role Phone Fadi Ariza MD Primary Care Provider Jignesh Carter Unavailable [phone] Allergies Allergen (clinical drug ingredient) Drug/Non Drug [...] Orally Active Colchicine 0.6 MG 1 tablet Orally; Duration: 30 day(s) Active Valsartan-hydroCHLOROthiazi de 160-12.5 MG Oral; Duration: 90 Active Gabapentin 300 MG TAKE 1 CAPSULE BY [facility] AT BEDTIME FOR 3 DAYS, THEN TWICE A DAY FOR 3 DAYS, THEN THREE TIMES A DAY. Oral; Duration: 33 Active Omeprazole 20 MG 1 capsule Orally Onc e a day Active Naproxen 500 MG TAKE 1 TABLET BY MIRELA TH UP TO 3 TIMES A DAY NEEDED Oral every 12 hrs 1 daily Active Levothyroxine Sodium 100 MCG TAKE 1 TABLET EVERY DAY Orally Once a day Active Valsartan 40 MG 1 tablet Orally Twic e a day; Duration: 30 day(s) Active Lorazepam 1 tab Oral; Duration : 14 days Active Immunizations Vaccine Route Administration [...] Status Risk Notes Problem Irritable bowel syndrome (52931146) Irritable bowel syndrome (K58.9) Active confirmed Problem Rectal bleeding (79390644) Rectal bleeding (K62.5) Active confirmed Problem Change in bowel habit (27285333) Change in bowel habits (R19.4) Active confirmed Problem Diverticulosis of colon (finding) (835522919) Diverticulosis of colon (without mention of hemorrhage) (K57.30) Active confirmed Problem Diverticulosis of colon (803306825) Diverticulosis of colon (K57.30) Active confirmed Plan Of Treatment Pending Test Test Name Order Date CELIAC PANEL #10 02/24/2021 Future Test Test Name Order Date COLONOSCOPY 08/17/2017 COLONOSCOPY 02/24/2021 Insurance Providers Payer Name Payer Address Payer Phone Subscriber Number Group Number Insured Name Patient Relationship to Insured Coverage Start Date Coverage End Date MEDICARE OF [place] [address] [place] [address] [id number] FELIPE CONN Self - patient is the insured [facility] INDEMNITY [address] [place] [address] [id number] FELIPE CONN Self - patient is the insured Medical (General) History Medical History History ICD Code Denies [place],DM,CVA,Lung disease,renal dise ase Hypothyroidism Psoriatic arthritis GERD-EGD [...]
--- OUTSIDE RECORDS SUMMARY | 2025-01-24 12:35 | XMS_ITS | Patient Health Record ---
Author Organization Fadi Ariza MD Address [address] [place] [address] [phone] Care Team Providers Care Surface Logging Systems Logger Name Role Phone Fadi Ariza Primary Care [...] ff Reviewed date:08/27/2024 04:42:59 PM Interpretation: Performing Lab:[facility], [address] [place] [phone] Notes/Report: White Blood Count 4.2 4.8-10.8 X10*3/uL [...] Panel Reviewed date:08/27/2024 12:29:00 PM Interpretation: Performing Lab:[facility], [address] [place] [phone] Notes/Report: Bilirubin Total 0.4 0.0-1.0 mg/dL Bilirubin Direct 0.1 0.0-0.5 mg/dL Aspartate Amino Transferase 28 5-31 U/L Alanine Aminotransferase 28 0-31 U/L Total Protein 6.6 6.5-8.0 g/dL Albumin Level 4.3 3.5-5.0 g/dL Alkaline Phosphatase 107 39-117 U/L Lipid Panel Reviewed date:08/27/2024 12:30:17 PM Interpretation: Performing Lab:[facility], [address] [place] [phone] Notes/Report: Triglycerides 173 <150 mg/dL Desirable Triglyceride: [...] T4 Reviewed date:08/27/2024 12:29:39 PM Interpretation: Performing Lab:[facility], [address] [place] [phone] Notes/Report: TSH reflex Free T4 4.70 0.32-4.0 uIU/mL TSH reflex Free T4 Reviewed date:12/09/2024 04:45:58 PM Interpretation: Performing Lab:[facility], [address] [place] [phone] Notes/Report: TSH reflex Free T4 6.31 0.32-4.0 uIU/mL Complete Blood Count Auto Di ff Reviewed date:01/24/2025 12:29:47 PM Interpretation: Performing Lab:[facility], [address] [place] [phone] Notes/Report: White Blood Count 3.5 4.8-10.8 X10*3/uL [...] NRBC Abs Auto 0.000 0.0-0.012 X10*3/uL Comprehensive [place]. Panel Fa st Reviewed date:01/24/2025 12:28:47 PM Interpretation: Performing Lab:[facility], [address] [place] [phone] Notes/Report: Sodium 137 135-145 mmol/L Potassium 3.9 [...] Panel Reviewed date:01/24/2025 12:29:56 PM Interpretation: Performing Lab:[facility], [address] [place] [phone] Notes/Report: Triglycerides 124 <150 mg/dL Desirable Triglyceride: [...] T4 Reviewed date:01/24/2025 12:28:56 PM Interpretation: Performing Lab:[facility], [address] [place] [phone] Notes/Report: TSH reflex Free T4 2.68 0.32-4.0 uIU/mL Free T4 (Free Thyroxine) Reviewed date:08/27/2024 12:18:52 PM Interpretation: Performing Lab:[facility], [address] [place] [phone] Notes/Report: Free T4 (Free Thyroxine) 1.20 0.71-1.85 ng/dL Juan Manuel Blood Reviewed date:08/27/2024 12:18:41 PM Interpretation: Performing Lab:[facility], [address] [place] [phone] Notes/Report: Juan Manuel Blood See Note Specimen held untested for 24 hours; Call to request Chemistry testing. Free T4 (Free Thyroxine) Reviewed date:12/09/2024 04:44:38 PM Interpretation: Performing Lab:[facility], [address] [place] [phone] Notes/Report: Free T4 (Free Thyroxine) 1.17 0.71-1.85 ng/dL Juan Manuel Blood Reviewed date:12/09/2024 12:40:30 PM Interpretation: Performing Lab:[facility], [address] [place] [phone] Notes/Report: Juan Manuel Blood See Note Specimen held untested for 24 hours; Call to request Chemistry testing. Juan Manuel Blood Reviewed date:01/24/2025 11:28:55 AM Interpretation: Performing Lab:[facility], [address] [place] [phone] Notes/Report: Juan Manuel Blood See Note Specimen held untested for 24 hours; Call to request Chemistry testing. Reason For Referral No Information Medications Medication SIG (Take, Route, Frequency, Duration) Notes Start Date End Date Status Levothyroxine Sodium 112 MCG 1 tablet in the morning on an empty stomach Orally Once a day for 90 days 09/03/2024 Active Hyoscyamine Sulfate ER 0.375 MG TAKE 1 TABLET BY MOUTH EVERY DAY FOR 30 DAYS NOT CVD BY INS for 90 Active Omeprazole 20 MG TAKE 1 CAPSULE [...] 6 hrs for 5 days 05/23/2023 Not-Taking Atorvastatin Calcium 40 MG TAKE 1 TABLET BY MOUTH EVERY DAY Active Immunizations Vaccine Route Administration Date Status Comme nts Flu Vaccine Unknown 02/10/2013 Administered At work. Flu Vaccine Unknown 01/07/2014 Administered [facility] Flu Vaccine Unknown 01/05/2015 Administered At [...] 01/23/2021 Administered SARS-COV-2 Pfizer Unknown 10/12/2021 Administered [facility] Influ[facility] High Dose IM Intramuscular 12/28/2021 Administered SARS-COV-2 Pfizer Unknown 01/14/2022 Administered [facility] Influenza High Dose IM Intramuscular 12/30/2022 Administered Influenza High Dose IM Intramuscular 01/18/2024 Administered Influenza High Dose IM Intramuscular 01/24/2025 Administered Prevnar 13 Unknown 02/13/2018 Refused Influenza [...] Status W/U Status Risk Notes Problem Sciatica (53205009) Sciatica (M54.30) Active confirmed Problem 44010005 Irritable bowel syndrome without diarrhea (K58.9) Active confirmed Problem Cervical rib (41581601) Cervical rib (Q76.5) Active confirmed Problem 72406973 Essential hypert ension (I10) Active confirmed Problem 594635971 Acquired hypothy roidism (E03.9) Active confirmed Problem 204511079 Psoriatic arthri tis (L40.50) Active confirmed Problem 71006399 Post menopausal problems (N95.9) Active confirmed Problem Pseudogout (985386994) Pseudogout (M11.80) Active confirmed Problem 42000338 Hiatal hernia (K44.9) Active confirmed Problem 08561604 Dysthymia (F34.1) Active confirmed Problem 513657621 Neutropenia, unspecified type (D70.9) Active confirmed Problem 037747563 Drug allergy (Z88.9) Active confirmed Problem 572544702 Pure hypercholesterolemia (E78.00) Active confirmed Problem 065904920 Bruxism (F45.8) Active confirmed Problem 729341791 Mild intermitten t asthmatic bronchitis with acute exacerbation (J45.21) Active confirmed Problem 53770525 Duodenitis witho ut mention of hemorrhage (K29.80) Active confirmed Problem 719710955 Giant cell arter itis (M31.6) Active confirmed Problem 811910555 Tension-type hea dache, not intractable, unspecified chronicity pattern (G44.209) Active confirmed Vital Signs Blood pressure diastolic 60 mm Hg 11/11/2024 Height 66 in 11/11/2024 Blood pressure systolic 108 mm Hg 11/11/2024 Weight 199 lbs 11/11/2024 BMI 32.12 kg/m2 11/11/2024 Encounters Encounter Location Date Provider Diagnosis Fadi Ariza MD [address] [place] [id number] 08/27/2024 Fadi Marcumardier Acquired hypothyroid ism E03.9 and Neutropenia, unspecified type D70.9 Fadi Ariza MD [address] [place] [id number] 12/09/2024 Fadi Leyvaer Irritable bowel synd neil without diarrhea K58.9 Fadi Ariza MD [address] [place] [address] [id number] 01/24/2025 Fadi Marcumardier Acquired hypothyroid ism E03.9 ; Neutropenia, unspecified type D70.9 ; Pure hypercholesterolemia E78.00 ; Essential hypertension I10 ; AA (alcohol abuse) 305.00 and Encounter for administration of vaccine Z23 Fadi Ariza MD [address] [place] [id number] 01/26/2024 Fadi Marcumardier Acquired hypothyroid ism E03.9 ; Neutropenia, unspecified type D70.9 ; Bruxism F45.8 ; Dysthymia F34.1 ; Pure hypercholesterolemia E78.00 ; Essential hypertension I10 and Depression screening Z13.31 Fadi Ariza MD [address] [place] [address] [id number] 09/03/2024 Fadi Ariza Irritable bowel synd neil without diarrhea K58.9 ; Acquired hypothyroidism E03.9 and Pure hypercholesterolemia E78.00 Fadi Ariza MD [address] [place] [address] [id number] 11/11/2024 Fadi Ariza Head injury S09.90XA and Cervical rib Q76.5 Fadi Ariza MD [address] [place] [address] [id number] 04/09/2024 Fadi Ariza MD [address] [place] [address] [id number] 11/04/2024 Fadi Ariza Assessments Encounter Date Diagnosis (ICD Code) Assessment Notes Treatment Notes Treatment Clinical Notes Section Notes 08/27/2024 Acquired hypothyroid ism (ICD-10 - E03.9) 08/27/2024 Neutropenia, unspecified type (ICD-10 - D70.9) 12/09/2024 Irritable bowel syndrome without diarrhea (ICD-10 - K58.9) 01/24/2025 Acquired hypothyroid ism (ICD-10 - E03.9) 01/24/2025 Neutropenia, unspecified type (ICD-10 - D70.9) 01/26/2024 [...] and can sometimes feel like a node 01/24/2025 Pure hypercholesterolemia (ICD-10 - E78.00) 01/26/2024 Bruxism (ICD-10 - F45.8) going to physical therapy 09/03/2024 Acquired hypothyroid ism (ICD-10 - E03.9) patient verbalized undersanding of medication and irections for use 01/24/2025 Essential hypertensi on (ICD-10 - I10) 01/26/2024 Dysthymia (ICD-10 - F34.1) stable, will continue current regiment 09/03/2024 Pure hypercholesterolemia (ICD-10 - E78.00) stable, will continue current regiment 01/24/2025 AA (alcohol abuse) (ICD9-CM - 305.00) 01/26/2024 Pure hypercholesterolemia (ICD-10 - E78.00) stable, at goal, will continue current regiment 01/24/2025 Encounter for administration of vaccine (ICD-10 - Z23) 01/26/2024 Essential hypertensi on (ICD-10 - I10) doing well, will continue current regiment 01/26/2024 Depression screening (ICD-10 - Z13.31) negative screen Plan Of Treatment Pending Test Test Name Order Date Electrocardiogram (EKG) 07/24/2015 Electrocardiogram (EKG) 07/29/2016 Electrocardiogram (EKG) 08/11/2017 Electrocardiogram (EKG) 08/30/2018 MRI CERVICAL SPINE NO CONTRAST 2 MRI LUMBAR SPINE NO CONTRAST 12/07/2021 BONE DENSITY DEXA 08/24/2012 MAMMOGRAM DIGITAL BILATERAL SCREEN 09/04 24 hour holter monitor 10/28/2014 UA ClnCatch+Micro w/rflx Cult 01/24/2025 Future Test Test Name Order Date BONE DENSITY DEXA 03/19/2020 Next Appt Details Provider Name:Fadi zamudio, 01/30/2025 08:00:00 AM, [address] [place] [address], [address], [place], [place], [id number], Insurance Providers Payer Name Payer Address Payer Phone Subscriber Number Group Number Insured Name Patient Relationship to Insured Coverage Start Date Coverage End Date [employer] [address] [place] [id number] Self - patient is the insured [address] [place] [address] [address] [place] [phone] [id number] Self - patient is the insured Medical (General) History Medical History History ICD Code colonoscopy 2008 due in 10 y ears; colonoscopy done 10/03/[address] Smith - repeat 10 years, colonoscopy 03/16, pending path, if negative no further testng is req. annual appt with [employer], Dr. Carey meyer, [facility]; Pap smear - 03/2013 cough due to han inhib
--- OUTSIDE RECORDS SUMMARY | 2025-01-24 12:36 | XMS_ITS | Clinical Summary ---
Author Organization [facility] Address [address] [facility] [address] [place] [phone] Phone Care Team Providers Care Tapping Machine Operator Name Role Phone Fadi Ariza MD Primary [...] file Insurance MEDICARE PART A & B [employer] MEDICARE SUPPLEMENT MEDICARE PART A & B [employer] MEDICARE SUPPLEMENT MEDICARE PART A & B [facility] [employer] MEDICARE SUPPLEMENT MEDICARE PART A & B [employer] MEDICARE SUPPLEMENT MEDICARE PART A & B [facility] [employer] MEDICARE SUPPLEMENT MEDICARE PART A & B [facility] [employer] MEDICARE SUPPLEMENT MEDICARE PART A & B Member Subscriber Plan / Payer (Ef fective 2015-Present) Name:Layla Lane Member ID:[id number] Relation to Subscriber:Self Name:Layla Lane Subscriber ID:[id number] Payer ID:[id number] Group ID:Not on file Type:Medicare Address: [employer] [address] [place] [id number] [place] [address] MEDICARE SUPPLEMENT MEDICARE PART A & B [employer] MEDICARE SUPPLEMENT MEDICARE PART A & B [employer] MEDICARE SUPPLEMENT Care Teams Tapping Machine Operator Relationship Specialty Start Date End Date Fadi Ariza MD [address] [place] [address] [place] [address] PCP - General Internal Medicine 10/09/19 Additional Source Comments The information contained in this document represents components of the legal health record. It is not the complete legal health record.[facility]
--- OUTSIDE RECORDS SUMMARY | 2025-01-24 12:36 | XMS_ITS | Data Portability ---
Author Organization [place] - [facility], [facility] Address [address] [place] [address] Care Team Providers Care Chip Frier Name Role Phone NIYA SORIANO Referring Provider Assessment Encounter Date Assessment Date Assessment LastModified by Organization Details LastModified Time 08/07/2023 08/07/2023 Pt cont to demonstrate excellent rom, improving strength. Continue to progress LE strength, balance and proprioception as tolerated. Not available 08/07/2023 11:26:44 08/09/2023 08/09/2023 Pt cont to demonstrate excellent rom, improving strength. Continue to progress LE strength, balance and proprioception as tolerated. [email or web address] Not available 08/09/2023 10:14:25 08/14/2023 08/14/2023 Pt cont to demonstrate good balance/proprioce ption today-progressing well. Continue to progress LE strength, balance and proprioception as tolerated. [email or web address] Not available 08/14/2023 12:54:04 08/16/2023 08/16/2023 Pt cont to demonstrate good balance/proprioce ption today-progressing well. Continue to progress LE strength, balance and proprioception as tolerated. [email or web address] Not available 08/15/2023 21:17:43 08/30/2023 08/30/2023 Pt demonstrates all ex's well and with good technique. D/C today. [email or web address] Not available 08/30/2023 17:35:35 Plan of Treatment Reminders Order Date Submit Date Provider Last Modified By Organization Details Last Modified Time Details Appointments None record ed. Lab None record ed. Referral None record ed. Procedures None record ed. Surgeries None record ed. Imaging None record ed. Medication Orders None record ed. Patient TargetsNo targets recorded. Patient InstructionsNo instructions recorded. Reason for Referral None Reported. Results Created Date Observation Date Name Description Value Unit Range Abnormal Flag Note LastModifiedBy Organization Detail LastModifiedTime 08/07/19 24 08/08/2023 CBC WITH DIFFE RENTI AL/PL ATELE T WBC 5.1 x10e3 /uL 3.4-10 .8 Not Available [facility] ([facility]) [address] [facility], [place], [address], 08/08/2023 08:09:26 08/07/19 24 08/08/2023 CBC WITH DIFFE RENTI AL/PL ATELE T RBC 4.27 x10e6 /uL 3.77-5 .28 Not Available [facility] ([facility]) [address] [place], [address], 08/08/2023 08:09:26 08/07/19 24 08/08/2023 CBC WITH DIFFE RENTI AL/PL ATELE T hemoglobin 12.7 g/dL 11.1-1 5.9 Not Available [facility] ([facility]) [address] [place], [address], 08/08/2023 08:09:26 08/07/19 24 08/08/2023 CBC WITH DIFFE RENTI AL/PL ATELE T hematocrit 38.7 % 34.0-4 6.6 Not Available [facility] ([facility]) [address] [place], [address], 08/08/2023 08:09:26 08/07/19 24 08/08/2023 CBC WITH DIFFE RENTI AL/PL ATELE T MCV 91 fL 79-97 Not Available [facility] ([facility]) [address] [place], [address], 08/08/2023 08:09:26 08/07/19 24 08/08/2023 CBC WITH DIFFE RENTI AL/PL ATELE T MCH 29.7 pg 26.6-3 3.0 Not Available [facility] ([facility]) [address] [facility], [place], [address], 08/08/2023 08:09:26 08/07/19 24 08/08/2023 CBC WITH DIFFE RENTI AL/PL ATELE T MCHC 32.8 g/dL 31.5-3 5.7 Not Available [facility] ([facility]) [address] [facility], [place], [address], 08/08/2023 08:09:26 08/07/19 24 08/08/2023 CBC WITH DIFFE RENTI AL/PL ATELE T RDW 12.5 % 11.7-1 5.4 Not Available [facility] ([facility]) [address] [facility], [place], [address], 08/08/2023 08:09:26 08/07/19 24 08/08/2023 CBC WITH DIFFE RENTI AL/PL ATELE T platelets 242 x10e3 /uL 150-45 0 Not Available [facility] ([facility]) [address] [facility], [place], [address], 08/08/2023 08:09:26 08/07/19 24 08/08/2023 CBC WITH DIFFE RENTI AL/PL ATELE T neutrophils 66 % not estab. Not Available [facility] ([facility]) [address] [facility], [place], [address], 08/08/2023 08:09:26 08/07/19 24 08/08/2023 CBC WITH DIFFE RENTI AL/PL ATELE T lymphs 18 % not estab. Not Available [facility] ([facility]) [address] [facility], [place], [address], 08/08/2023 08:09:26 08/07/19 24 08/08/2023 CBC WITH DIFFE RENTI AL/PL ATELE T monocytes 12 % not estab. Not Available [facility] ([facility]) [address] [facility], [place], [address], 08/08/2023 08:09:26 08/07/19 24 08/08/2023 CBC WITH DIFFE RENTI AL/PL ATELE T eos 3 % not estab. Not Available [facility] ([facility]) [address] [facility], [place], [address], 08/08/2023 08:09:26 08/07/19 24 08/08/2023 CBC WITH DIFFE RENTI AL/PL ATELE T basos 1 % not estab. Not Available [facility] ([facility]) [address] [facility], [place], [address], 08/08/2023 08:09:26 08/07/19 24 08/08/2023 CBC WITH DIFFE RENTI AL/PL ATELE T immature cells SUPERVISOR SEAMING Not Available [facility] ([facility]) [address] [place], [address], 08/08/2023 08:09:26 08/07/19 24 08/08/2023 CBC WITH DIFFE RENTI AL/PL ATELE T neutrophils (absolute) 3.4 x10e3 /uL 1.4-7. 0 Not Available [facility] ([facility]) [address] [facility], [place], [address], 08/08/2023 08:09:26 08/07/19 24 08/08/2023 CBC WITH DIFFE RENTI AL/PL ATELE T lymphs (absolute) 0.9 x10e3 /uL 0.7-3. 1 Not Available [facility] ([facility]) [address] [place], [address], 08/08/2023 08:09:26 08/07/19 24 08/08/2023 CBC WITH DIFFE RENTI AL/PL ATELE T monocytes(ab solute) 0.6 x10e3 /uL 0.1-0. 9 Not Available [facility] ([facility]) [address] [facility], [place], [address], 08/08/2023 08:09:26 08/07/19 24 08/08/2023 CBC WITH DIFFE RENTI AL/PL ATELE T eos (absolute) 0.1 x10e3 /uL 0.0-0. 4 Not Available [facility] ([facility]) [address] [facility], [place], [address], 08/08/2023 08:09:26 08/07/19 24 08/08/2023 CBC WITH DIFFE RENTI AL/PL ATELE T baso (absolute) 0.1 x10e3 /uL 0.0-0. 2 Not Available [facility] ([facility]) [address] [facility], [place], [address], 08/08/2023 08:09:26 08/07/19 24 08/08/2023 CBC WITH DIFFE RENTI AL/PL ATELE T immature granulocytes 0 % not estab. Not Available [facility] ([facility]) [address] [facility], [place], [address], 08/08/2023 08:09:26 08/07/19 24 08/08/2023 CBC WITH DIFFE RENTI AL/PL ATELE T immature grans (abs) 0.0 x10e3 /uL 0.0-0. 1 Not Available [facility] ([facility]) [address] [facility], [place], [address], 08/08/2023 08:09:26 08/07/19 24 08/08/2023 CBC WITH DIFFE RENTI AL/PL ATELE T NRBC SUPERVISOR SEAMING Not Available [facility] ([facility]) [address] [facility], [place], [address], 08/08/2023 08:09:26 08/07/19 24 08/08/2023 CBC WITH DIFFE RENTI AL/PL ATELE T hematology comments: SUPERVISOR SEAMING Not Available [facility] ([facility]) [address] [facility], [place], [address], 08/08/2023 08:09:26 08/07/19 24 08/08/2023 SEDIM ENTAT ION RATE- WESTE RGREN sedimentatio n rate-westerg chel 12 mm/HR 0-40 Not Available [facility] ([facility]) [address] [facility], [place], [address], 08/08/2023 08:09:27 08/07/19 24 08/08/2023 C-ALESSIA CTIVE PROTE IN, QUANT C-reactive protein, quant 4 mg/L 0-10 Not Available [facility] ([facility]) [address] [facility], [place], [address], 08/08/2023 08:09:28 Result Notes None recorded. Problems Name Problem SNOMED Code Status Onset Date Resolution Date Notes Provider Name and Address Organization Details Recorded Time Closed fracture of triquetra l bone of left wrist 070095429747 28233 Active 2018 Problem Code: S62.112A ; Problem Code Type: ICD-10; Status: 'A'; Not Available [facility] 4 10:55:54 Problem Notes None recorded. Procedures Surgical History Date Name Laterality Status Provider Name and Address Organization Details Recorded Time 4 23614 Therapeutic Exercise (1:1) completed Edie Bass PTA [address], [place], [address], [facility] 08/29/2023 15:05:05 4 31131: Manual therapy completed Edie Bass PTA [address], [place], [address], [facility] 08/29/2023 15:05:05 4 95332 Therapeutic Exercise (1:1) cancelled Colleen Wheeler DPT [address], [place], [address], [facility] 08/26/2023 23:49:09 4 35040: Manual therapy cancelled Colleen Wheeler DPT [address], [place], [address], [facility] 08/26/2023 23:49:09 4 03364 Therapeutic Exercise (1:1) cancelled Colleen Wheeler, DPT [address], [place], [address], [facility] 08/23/2023 22:26:10 4 74566: Manual therapy cancelled Colleen Wheeler DPT [address], [place], [address], [facility] 08/23/2023 22:26:10 4 09066 Therapeutic Exercise (1:1) cancelled ALYCE RubioT [address], [place], [address], [facility] 08/18/2023 12:16:51 4 88229 Therapeutic Exercise (1:1) completed Edie Bass, GREEN HIDE INSPECTOR [address], [place], [address], [facility] 08/15/2023 21:17:43 4 21875: Manual therapy completed Edie Bass, GREEN HIDE INSPECTOR [address], [place], [address], [facility] 08/15/2023 21:17:43 4 98833 Therapeutic Exercise (1:1) completed Edie Bass, GREEN HIDE INSPECTOR [address], [place], [address], [facility] 08/11/2023 13:12:14 4 58505: Manual therapy completed Edie Bass, GREEN HIDE INSPECTOR [address], [place], [address], [facility] 08/11/2023 13:12:14 4 40519 Therapeutic Exercise (1:1) completed Edie Bass, GREEN HIDE INSPECTOR [address], [place], [address], [facility] 08/09/2023 10:14:32 4 94777: Manual therapy completed Edie Bass PTA [address], [place], [address], [facility] 08/09/2023 11:37:27 4 98962 Therapeutic Exercise (1:1) completed Edie Bass PTA [address], [place], [address], [facility] 08/07/2023 11:24:17 4 92452: Manual therapy completed Edie Bass PTA [address], [place], [address], [facility] 08/04/2023 12:03:46 4 19816 Therapeutic Exercise (1:1) completed Colleen Wheeler DPT [address], [place], [address], [facility] 08/02/2023 13:21:26 4 46595: Manual therapy completed Colleen Wheeler DPT [address], [place], [address], [facility] 08/02/2023 13:21:22 4 45541 Therapeutic Exercise (1:1) completed Colleen Wheeler DPT [address], [place], [address], [facility] 07/29/2023 10:45:49 4 70196: Manual therapy completed Colleen Wheeler DPT [address], [place], [address], [facility] 07/31/2023 12:35:50 4 25400 Therapeutic Exercise (1:1) completed Edie Bass PTA [address], [place], [address], [facility] 07/25/2023 13:00:05 4 38873: Manual therapy completed Edie Bass PTA [address], [place], [address], [facility] 07/25/2023 13:00:05 4 09836 Therapeutic Exercise (1:1) completed Edie Bass PTA [address], [place], [address], [facility] 07/23/2023 16:42:34 4 71523: Manual therapy completed Edie Bass PTA [address], [place], [address], [facility] 07/24/2023 12:09:45 4 79996 Therapeutic Exercise (1:1) completed Colleen Wheeler DPT [address], [place], [address], [facility] 07/20/2023 13:03:02 4 29506: Manual therapy completed Colleen Wheeler DPT [address], [place], [address], [facility] 07/20/2023 13:03:08 4 45306 Therapeutic Exercise (1:1) completed Edie Bass PTA [address], [place], [address], [facility] 07/17/2023 17:37:33 4 53704: Manual therapy completed Edie Bass PTA [address], [place], [address], [facility] 07/17/2023 17:37:33 4 54772 Therapeutic Exercise (1:1) completed Colleen Wheeler DPT [address], [place], [address], [facility] 07/12/2023 12:15:14 4 68123: Manual therapy completed Colleen Wheeler DPT [address], [place], [address], [facility] 07/12/2023 12:14:14 4 93026 Therapeutic Exercise (1:1) completed Edie Bass GREEN HIDE INSPECTOR [address], [place], [address], [facility] 07/10/2023 13:48:07 4 30380: Manual therapy completed Edie Bass PTA [address], [place], [address], [facility] 07/10/2023 13:48:18 4 99153 Therapeutic Exercise (1:1) completed Colleen Wheeler DPT [address], [place], [address], [facility] 07/05/2023 12:49:51 4 49325: Low complexity PT Eval completed Colleen Wheeler DPT [address], [place], [address], [facility] 07/05/2023 12:52:44 4 G8417 BMI Above Upper Parameters, F/U Documented completed Colleen Wheeler DPT [address], [place], [address], [facility] 07/12/2023 08:11:46 4 G8427 Current Medication Documented completed Colleen Wheeler DPT [address], [place], [address], [facility] 07/12/2023 08:11:40 Imaging Results None recorded. Procedure Notes None recorded. Medical Equipment None Reported. 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 active Not Available Not Available No t Available atorvastatin 40 mg tablet TAKE 1 TABLET BY MOUTH EVERY DAY active Not Available Not Available No t Available clindamycin HCl 300 mg capsule TAKE 2 CAPSULES BY MOUTH 1 HOUR PRIOR TO DENTAL PROCEDURE active Not Available Not Available No t Available azithromycin 250 mg tablet active Not Available Not Available Not Available alendronate 70 mg tablet PLEASE SEE ATTACHED FOR DETAILED DIRECTIONS active Not Available Not Available N ot Available tramadol 50 mg tablet TAKE 1 TO 2 TABLETS BY MOUTH EVERY 6 HOURS NEEDED FOR MILD PAIN. DO NOT EXCEED 8 TABLETS (400MG) PER DAY. active Not Available Not Available No t Available levothyroxin e 100 mcg tablet TAKE 1 TABLET BY MOUTH EVERY DAY active Not Available Not Available No t Available citalopram 20 mg tablet TAKE 2 TABLETS BY MOUTH EVERY DAY active Not Available Not Available No t Available lorazepam 0.5 mg tablet TAKE 1 TABLET BY MOUTH EVERY 6 HOURS NEEDED FOR 5 DAYS active Not Available Not Available No t Available aspirin 325 mg tablet,delay ed release TAKE 1 TABLET BY MOUTH TWICE A DAY DIRECTED active Not Available Not Available No t Available docusate sodium 100 mg capsule TAKE 1 CAPSULE BY MOUTH TWICE A DAY FOR 30 DAYS NEEDED FOR CONSTIPATIO N active Not Available Not Available No t Available omeprazole 20 mg capsule,beena yed release TAKE 1 CAPSULE BY MOUTH EVERY DAY active Not Available Not Available No t Available furosemide 20 mg tablet TAKE 1 TABLET BY MOUTH EVERY DAY FOR 14 DAYS active Not Available Not Available No t Available naproxen 500 mg tablet TAKE 1 TABLET BY MOUTH TWICE A DAY active Not Available Not Available No t Available oxycodone 5 mg tablet TAKE 1 TO 2 TABLETS BY MOUTH EVERY 4 HOURS NEEDED FOR SEVERE PAIN active Not Available Not Available Not Available chlorhexidin e gluconate 0.12 % mouthwash PLEASE SEE ATTACHED FOR DETAILED DIRECTIONS active Not Available Not Available N ot Available valsartan 320 mg-hydrochlo rothiazide 12.5 mg tablet TAKE 1 TABLET BY MOUTH EVERY DAY active Not Available Not Available No t Available Actemra ACTPen 162 mg/0.9 mL subcutaneous pen injector active Not Available Not Available Not Available Vitals Date Recorded Body height Provider Name an d Address Organization Details Last Updated DateTime 08/07/2023 165.1 cm LENO Richards [facility] 08/07/2023 14:05:45 Social History None recorded. Functional Status None recorded. Mental Status None recorded. Family History Nothing Reported. Medical History No medical history recorded. Gynecological HistoryNo gynecological history recorded. Obstetrics History GPAL:G 0 P 0 0 0 0 Past Encounters Encounter ID Performer Location Encounter Start Date Encounter Closed Date Diagnosis/Indication Diagnosis SNOMED-CT Code Diagnosis ICD10 Code Diagnosis IMO Codes Diagnosis Note [id number] Landy Azam, REMOTE COMPUTER TERMINAL OPERATOR [facility] [address] [place] [address] 06/15/2023 10:55:12 07/06/2023 04:11:02 Osteoarthritis of left knee joint 3703918388 42811 M17.12 [id number] Colleen Wheeler DPT [facility] [address] [place] [address] 07/05/2023 11:18:40 07/05/2023 12:07:42 Aftercare 068044037 Z47.1 History of left total knee replacement 1518577763 535314 Z96.198 [id number] Marvel Pérez PA-C [facility] [address] [place] [address] 07/06/2023 13:03:21 07/19/2023 07:20:57 History of arthroplasty of left knee 5125203966 092232 Z96.583 [id number] Edie Bass PTA [facility] [address] [place] [address] 07/10/2023 10:23:20 07/10/2023 12:53:37 Aftercare 920044100 Z47.1 History of left total knee replacement 0797968209 032552 Z96.164 [id number] Colleen Wheeler DPT [facility] [address] [place] [address] 07/12/2023 10:23:35 07/12/2023 11:55:36 Aftercare 437118045 Z47.1 History of left total knee replacement 0853011074 297060 Z96.517 [id number] Edie Bass, GREEN HIDE INSPECTOR [facility] [address] [place] [address] 07/18/2023 10:14:58 07/18/2023 11:54:14 Aftercare 576732799 Z47.1 History of left total knee replacement 5477024384 409045 Z96.675 [id number] ALYCE RubioT [facility] [address] [place] [address] 07/20/2023 10:10:53 07/20/2023 11:17:35 Aftercare 065237200 Z47.1 History of left total knee replacement 7450742892 516250 Z96.045 [id number] Edie Bass GREEN HIDE INSPECTOR [facility] [address] [place] [address] 07/24/2023 11:08:30 07/24/2023 12:16:33 Aftercare 511606424 Z47.1 History of left total knee replacement 0748365893 713694 Z96.818 [id number] Edie Bass GREEN HIDE INSPECTOR [facility] [address] [place] [address] 07/26/2023 11:24:13 07/26/2023 12:05:25 Aftercare 224816350 Z47.1 History of left total knee replacement 8268385473 630926 Z96.333 [id number] Colleen Wheeler DPT [facility] [address] [place] [address] 07/31/2023 10:28:22 07/31/2023 11:28:34 Aftercare 720627775 Z47.1 History of left total knee replacement 4067904053 247886 Z96.385 [id number] ALYCE RubioT [facility] [address] [place] [address] 08/02/2023 10:29:30 08/02/2023 11:11:32 Aftercare 962171339 Z47.1 History of left total knee replacement 3483430244 543802 Z96.860 [id number] Edie Bass, GREEN HIDE INSPECTOR [facility] [address] [place] [address] 08/07/2023 10:20:15 08/07/2023 11:12:40 Aftercare 705128136 Z47.1 History of left total knee replacement 0990722976 709020 Z96.377 [id number] Bobby Christopher MD [facility] [address] [place] [address] 08/07/2023 13:50:54 08/17/2023 12:02:05 History of left total knee replacement 2602613023 753797 Z96.797 [id number] Edie Bass, GREEN HIDE INSPECTOR [facility] [address] [place] [address] 08/09/2023 10:08:30 08/09/2023 12:30:38 History of left total knee replacement 1203622478 127054 Z96.652 Aftercare 387016298 Z47. 1 [id number] Edie Bass, GREEN HIDE INSPECTOR [facility] [address] [place] [address] 08/14/2023 09:55:15 08/14/2023 10:45:16 History of left total knee replacement 4736421304 339006 Z96.652 Aftercare 635752792 Z47. 1 [id number] Edie Bass, GREEN HIDE INSPECTOR [facility] [address] [place] [address] 08/16/2023 10:13:19 08/16/2023 10:34:03 History of left total knee replacement 4960614700 625986 Z96.652 Aftercare 535588166 Z47. 1 [id number] Edie Bass, GREEN HIDE INSPECTOR [facility] [address] [place] [address] 08/30/2023 16:41:21 08/30/2023 17:39:34 History of left total knee replacement 4945800748 951384 Z96.652 Aftercare 474517783 Z47. 1 Health Concerns Section Related Observation LastModified by Organization Detai ls LastModified Time None Recorded Concern Status LastModified by Organization Details LastModified Time None Recorded Advance Directives Directive None Recorded Payers Insurance Date Sequence Insurance Name Policy Number Policy Saleh Covered Member ID Saleh Member ID Guarantor Name 08/26/2023 2 [facility] [place] [place] INDEMNITY PLAN (INDEMNITY) [id number] Layla Alexander Ariana [id number] 08/27/2023 1 MEDICARE [place]: [id number] Layla Alexander Ariana [id number] Notes Date Note Type Note Provider Name and Address Organization Details Recorded Time 08/07/2023 text/html Patient presents today reporting 0/10 pain. Pt states occasional sharp shooting pains in knee. Colleen Wheeler DPT [address], [place], [address], [facility] 08/11/2023 14:11:44 08/09/2023 text/html Patient presents today reporting 0/10 pain. Pt states occasional sharp shooting pains in knee. Colleen Wheeler DPT [address], [place], [address], [facility] 08/10/2023 15:06:07 08/14/2023 text/html Patient presents today reporting 0/10 pain. Pt cont to state occasional sharp shooting pains especially at night. Edie Bass PTA [address], [place], [address], [facility] 08/14/2023 12:54:43 08/16/2023 text/html Patient presents today reporting 0/10 pain. Pt cont to state occasional sharp shooting pains especially at night. Edie Bass PTA [address], [place], [address], [facility] 08/16/2023 11:04:52 08/30/2023 text/html Patient presents today reporting 0/10 pain. Pt states having bronchiitis-repor ts knee feels like there's a rubberband around the knee. Edie Bass PTA [address], [place], [address], [facility] 08/30/2023 17:35:54 OBGyn Episode No OBEpisode recorded.
== END 2025-01-24 11:02 | disposition home or self-care (01) ==
LOC: HO.LNP 11:01
PROVIDERS: Visit Provider Internal Medicine
DX: I10 Essential (primary) hypertension (principal); D70.9 Neutropenia, unspecified; E03.9 Hypothyroidism, unspecified; E78.00 Pure hypercholesterolemia, unspecified
CPT/HCPCS: 80053; 80061; 84443; 85025

== ENCOUNTER 2025-01-30 11:25 | Outpatient (REF) | payer MEDICARE, OTHER, SELFPAY ==
[2025-01-30 11:46] LABS: Appearance Urine Clear; Glucose Urine UA Negative (Negative); PH 5.5 (5.0-9.0); Specific Gravity - Urine 1.010 (1.005-1.025); UMIC TRIGGER UACC YES
--- OUTSIDE RECORDS SUMMARY | 2025-01-30 14:21 | XMS_ITS | Clinical Summary ---
Author Organization [facility] Address [address] [facility] [address] [place] [address] Phone Care Team Providers Care Family Day Care Provider Name Role Phone Fadi Ariza MD Primary [...] file Insurance MEDICARE PART A & B [employer] MEDICARE SUPPLEMENT MEDICARE PART A & B [employer] MEDICARE SUPPLEMENT MEDICARE PART A & B [facility] EXTENSION MEDICARE SUPPLEMENT MEDICARE PART A & B [employer] EXTENSION MEDICARE SUPPLEMENT MEDICARE PART A & B [employer] EXTENSION MEDICARE SUPPLEMENT MEDICARE PART A & B [facility] EXTENSION MEDICARE SUPPLEMENT MEDICARE PART A & B Member Subscriber Plan / Payer (Ef fective 2015-Present) Name:Layla Lane Member ID:[id number] Relation to Subscriber:Self Name:Layla Lane Subscriber ID:[id number] Payer ID:[id number] Group ID:Not on file Type:Medicare Address: [employer] [address] [place] [address] [place] [address] MEDICARE SUPPLEMENT MEDICARE PART A & B [employer] EXTENSION MEDICARE SUPPLEMENT MEDICARE PART A & B [employer] EXTENSION MEDICARE SUPPLEMENT Care Teams Family Day Care Provider Relationship Specialty Start Date End Date Fadi Ariza MD [address] [place] [address] [place] [address] PCP - General Internal Medicine 10/09/19 Additional Source Comments The information contained in this document represents components of the legal health record. It is not the complete legal health record.[facility]
--- OUTSIDE RECORDS SUMMARY | 2025-01-30 14:21 | XMS_ITS | Data Portability ---
Author Organization [place] [facility], [facility] [place] Address [address] [place] [address] Care Team Providers Care Rug Designer Name Role Phone NIYA SORIANO Referring Provider Assessment Encounter Date Assessment Date Assessment LastModified by Organization Details LastModified Time 08/07/2023 08/07/2023 Pt cont to demonstrate excellent rom, improving strength. Continue to progress LE strength, balance and proprioception as tolerated. [email or web address] Not available 08/07/2023 11:26:44 08/09/2023 08/09/2023 Pt cont to demonstrate excellent rom, improving strength. Continue to progress LE strength, balance and proprioception as tolerated. [email or web address] Not available 08/09/2023 10:14:25 08/14/2023 08/14/2023 Pt cont to demonstrate good balance/proprioce ption today-progressing well. Continue to progress LE strength, balance and proprioception as tolerated. Not available 08/14/2023 12:54:04 08/16/2023 08/16/2023 Pt cont to demonstrate good balance/proprioce ption today-progressing well. Continue to progress LE strength, balance and proprioception as tolerated. [email or web address] Not available 08/15/2023 21:17:43 08/30/2023 08/30/2023 Pt demonstrates all ex's well and with good technique. D/C today. [email or web address] Not available 08/30/2023 17:35:35 Plan of Treatment [...] x10e3 /uL 3.4-10 .8 Not Available [facility] ([facility]) [address] [facility], [place], [address], 08/08/2023 08:09:26 08/07/19 24 08/08/2023 CBC WITH DIFFE RENTI AL/PL ATELE T RBC 4.27 x10e6 /uL 3.77-5 .28 Not Available [facility] ([facility]) [address] [place], [address], 08/08/2023 08:09:26 08/07/19 24 08/08/2023 CBC WITH DIFFE RENTI AL/PL ATELE T hemoglobin 12.7 g/dL 11.1-1 5.9 Not Available [facility] ([facility]) [address] [place], [address], 08/08/2023 08:09:26 08/07/19 24 08/08/2023 CBC WITH DIFFE RENTI AL/PL ATELE T hematocrit 38.7 % 34.0-4 6.6 Not Available [facility] ([facility]) [address] [place], [address], 08/08/2023 08:09:26 08/07/19 24 08/08/2023 CBC WITH DIFFE RENTI AL/PL ATELE T MCV 91 fL 79-97 Not Available [facility] ([facility]) [address] [place], [address], 08/08/2023 08:09:26 08/07/19 24 08/08/2023 CBC WITH DIFFE RENTI AL/PL ATELE T MCH 29.7 pg 26.6-3 3.0 Not Available [facility] ([facility]) [address] [facility], [place], [address], 08/08/2023 08:09:26 08/07/19 24 08/08/2023 CBC WITH DIFFE RENTI AL/PL ATELE T MCHC 32.8 g/dL 31.5-3 5.7 Not Available [facility] ([facility]) [address] [facility], [place], [address], 08/08/2023 08:09:26 08/07/19 24 08/08/2023 CBC WITH DIFFE RENTI AL/PL ATELE T RDW 12.5 % 11.7-1 5.4 Not Available [facility] ([facility]) [address] [facility], [place], [address], 08/08/2023 08:09:26 08/07/19 24 08/08/2023 CBC WITH DIFFE RENTI AL/PL ATELE T platelets 242 x10e3 /uL 150-45 0 Not Available [facility] ([facility]) [address] [facility], [place], [address], 08/08/2023 08:09:26 08/07/19 24 08/08/2023 CBC WITH DIFFE RENTI AL/PL ATELE T neutrophils 66 % not estab. Not Available [facility] ([facility]) [address] [facility], [place], [address], 08/08/2023 08:09:26 08/07/19 24 08/08/2023 CBC WITH DIFFE RENTI AL/PL ATELE T lymphs 18 % not estab. Not Available [facility] ([facility]) [address] [facility], [place], [address], 08/08/2023 08:09:26 08/07/19 24 08/08/2023 CBC WITH DIFFE RENTI AL/PL ATELE T monocytes 12 % not estab. Not Available [facility] ([facility]) [address] [facility], [place], [address], 08/08/2023 08:09:26 08/07/19 24 08/08/2023 CBC WITH DIFFE RENTI AL/PL ATELE T eos 3 % not estab. Not Available [facility] ([facility]) [address] [facility], [place], [address], 08/08/2023 08:09:26 08/07/19 24 08/08/2023 CBC WITH DIFFE RENTI AL/PL ATELE T basos 1 % not estab. Not Available [facility] ([facility]) [address] [facility], [place], [address], 08/08/2023 08:09:26 08/07/19 24 08/08/2023 CBC WITH DIFFE RENTI AL/PL ATELE T immature cells POST ANESTHESIA NURSE Not Available [facility] ([facility] [address] [place], [address], 08/08/2023 08:09:26 08/07/19 24 08/08/2023 CBC WITH DIFFE RENTI AL/PL ATELE T neutrophils (absolute) 3.4 x10e3 /uL 1.4-7. 0 Not Available [facility] ([facility]) [address] [facility], [place], [address], 08/08/2023 08:09:26 08/07/19 24 08/08/2023 CBC WITH DIFFE RENTI AL/PL ATELE T lymphs (absolute) 0.9 x10e3 /uL 0.7-3. 1 Not Available [facility] ([facility]) [address] [place], [address], 08/08/2023 08:09:26 08/07/19 24 08/08/2023 CBC WITH DIFFE RENTI AL/PL ATELE T monocytes(ab solute) 0.6 x10e3 /uL 0.1-0. 9 Not Available [facility] ([facility]) [address] [facility], [place], [address], 08/08/2023 08:09:26 08/07/19 24 08/08/2023 CBC WITH DIFFE RENTI AL/PL ATELE T eos (absolute) 0.1 x10e3 /uL 0.0-0. 4 Not Available [facility] ([facility]) [address] [facility], [place], [address], 08/08/2023 08:09:26 08/07/19 24 08/08/2023 CBC WITH DIFFE RENTI AL/PL ATELE T baso (absolute) 0.1 x10e3 /uL 0.0-0. 2 Not Available [facility] ([facility]) [address] [facility], [place], [address], 08/08/2023 08:09:26 08/07/19 24 08/08/2023 CBC WITH DIFFE RENTI AL/PL ATELE T immature granulocytes 0 % not estab. Not Available [facility] ([facility]) [address] [facility], [place], [address], 08/08/2023 08:09:26 08/07/19 24 08/08/2023 CBC WITH DIFFE RENTI AL/PL ATELE T immature grans (abs) 0.0 x10e3 /uL 0.0-0. 1 Not Available [facility] ([facility]) [address] [facility], [place], [address], 08/08/2023 08:09:26 08/07/19 24 08/08/2023 CBC WITH DIFFE RENTI AL/PL ATELE T NRBC POST ANESTHESIA NURSE Not Available [facility] ([facility]) [address] [facility], [place], [address], 08/08/2023 08:09:26 08/07/19 24 08/08/2023 CBC WITH DIFFE RENTI AL/PL ATELE T hematology comments: POST ANESTHESIA NURSE Not Available [facility] ([facility]) [address] [facility], [place], [address], 08/08/2023 08:09:26 08/07/19 24 08/08/2023 SEDIM ENTAT ION RATE- WESTE RGREN sedimentatio n rate-westerg chel 12 mm/HR 0-40 Not Available [facility] ([facility]) [address] [facility], [place], [address], 08/08/2023 08:09:27 08/07/19 24 08/08/2023 C-ALESSIA CTIVE PROTE IN, QUANT C-reactive protein, quant 4 mg/L 0-10 Not Available [facility] ([facility]) [address] [facility], [place], [address], 08/08/2023 08:09:28 Result Notes None recorded. Problems Name Problem SNOMED Code Status Onset Date Resolution Date Notes Provider Name and Address Organization Details Recorded Time Closed fracture of triquetra l bone of left wrist 113486950068 02792 Active 2018 Problem Code: S62.112A ; Problem Code Type: ICD-10; Status: 'A'; Not Available [facility] 4 10:55:54 Problem Notes None recorded. Procedures Surgical History Date Name Laterality Status Provider Name and Address Organization Details Recorded Time 4 50503 Therapeutic Exercise (1:1) completed Edie Bass PTA [address], [place], [address], [facility] 08/29/2023 15:05:05 4 37394: Manual therapy completed Edie Bass PTA [address], [place], [address], [facility] 08/29/2023 15:05:05 4 93622 Therapeutic Exercise (1:1) cancelled Colleen Wheeler DPT [address], [place], [address], [facility] 08/26/2023 23:49:09 4 01009: Manual therapy cancelled Colleen Wheeler DPT [address], [place], [address], [facility] 08/26/2023 23:49:09 4 11892 Therapeutic Exercise (1:1) cancelled Colleen Wheeler, DPT [address], [place], [address], [facility] 08/23/2023 22:26:10 4 11419: Manual therapy cancelled Colleen Wheeler DPT [address], [place], [address], [facility] 08/23/2023 22:26:10 4 74113 Therapeutic Exercise (1:1) cancelled ALYCE RubioT [address], [place], [address], [facility] 08/18/2023 12:16:51 4 03543 Therapeutic Exercise (1:1) completed Edie Bass, HOTEL RESERVATIONIST [address], [place], [address], [facility] 08/15/2023 21:17:43 4 17967: Manual therapy completed Edie Bass, HOTEL RESERVATIONIST [address], [place], [address], [facility] 08/15/2023 21:17:43 4 85792 Therapeutic Exercise (1:1) completed Edie Bass, HOTEL RESERVATIONIST [address], [place], [address], [facility] 08/11/2023 13:12:14 4 28310: Manual therapy completed Edie Bass, HOTEL RESERVATIONIST [address], [place], [address], [facility] 08/11/2023 13:12:14 4 24088 Therapeutic Exercise (1:1) completed Edie Bass, HOTEL RESERVATIONIST [address], [place], [address], [facility] 08/09/2023 10:14:32 4 58855: Manual therapy completed Edie Bass PTA [address], [place], [address], [facility] 08/09/2023 11:37:27 4 38356 Therapeutic Exercise (1:1) completed Edie Bass PTA [address], [place], [address], [facility] 08/07/2023 11:24:17 4 76091: Manual therapy completed Edie Bass PTA [address], [place], [address], [facility] 08/04/2023 12:03:46 4 97758 Therapeutic Exercise (1:1) completed Colleen Wheeler DPT [address], [place], [address], [facility] 08/02/2023 13:21:26 4 77471: Manual therapy completed Colleen Wheeler DPT [address], [place], [address], [facility] 08/02/2023 13:21:22 4 06128 Therapeutic Exercise (1:1) completed Colleen Wheeler DPT [address], [place], [address], [facility] 07/29/2023 10:45:49 4 04962: Manual therapy completed Colleen Wheeler DPT [address], [place], [address], [facility] 07/31/2023 12:35:50 4 48937 Therapeutic Exercise (1:1) completed Edie Bass PTA [address], [place], [address], [facility] 07/25/2023 13:00:05 4 28549: Manual therapy completed Edie Bass PTA [address], [place], [address], [facility] 07/25/2023 13:00:05 4 43837 Therapeutic Exercise (1:1) completed Edie Bass PTA [address], [place], [address], [facility] 07/23/2023 16:42:34 4 26504: Manual therapy completed Edie Bass PTA [address], [place], [address], [facility] 07/24/2023 12:09:45 4 86947 Therapeutic Exercise (1:1) completed Colleen Wheeler DPT [address], [place], [address], [facility] 07/20/2023 13:03:02 4 61852: Manual therapy completed Colleen Wheeler DPT [address], [place], [address], [facility] 07/20/2023 13:03:08 4 24780 Therapeutic Exercise (1:1) completed Edie Bass PTA [address], [place], [address], [facility] 07/17/2023 17:37:33 4 50300: Manual therapy completed Edie Bass PTA [address], [place], [address], [facility] 07/17/2023 17:37:33 4 99125 Therapeutic Exercise (1:1) completed Colleen Wheeler DPT [address], [place], [address], [facility] 07/12/2023 12:15:14 4 69516: Manual therapy completed Colleen Wheeler DPT [address], [place], [address], [facility] 07/12/2023 12:14:14 4 52912 Therapeutic Exercise (1:1) completed Edie Bass HOTEL RESERVATIONIST [address], [place], [address], [facility] 07/10/2023 13:48:07 4 54871: Manual therapy completed Edie Bass PTA [address], [place], [address], [facility] 07/10/2023 13:48:18 4 19209 Therapeutic Exercise (1:1) completed Colleen Wheeler DPT [address], [place], [address], [facility] 07/05/2023 12:49:51 4 29778: Low complexity PT Eval completed Colleen Wheeler DPT [address], [place], [address], [facility] 07/05/2023 12:52:44 4 G8417 BMI Above Upper Parameters, F/U Documented completed Colleen Wheeler DPT [address], [place], [address], [facility] 07/12/2023 08:11:46 4 G8427 Current Medication Documented completed Colleen Wheeler DPT [address], [place], [address], [facility] 07/12/2023 08:11:40 Imaging Results None recorded. Procedure Notes None recorded. Medical Equipment None Reported. Allergies Allergen ID Allergen Name Allergen Category Reaction Reaction Severity Criticality Documentation Date Start Date Code Code System Note Provider Name and Address Organization Details Recorded Time 41248 Product containin g penicilli n (product) medicatio n Not available Not available Not available 05/29/20232022 45068 8001 SNOMED Not Available [facility] 03/04/202 4 11:09:58 Medications Name Sig Start Date Stop Date Status Note LastModified by Organization Details LastModified Time Prescription - New active chef under 06/14 Not Available Not Available Not Available [...] Updated DateTime 08/07/2023 165.1 cm [facility] 08/07/2023 14:05:45 Social History None recorded. Functional Status None recorded. Mental Status None recorded. Family History Nothing Reported. Medical History No medical history recorded. Gynecological HistoryNo gynecological history recorded. Obstetrics History GPAL:G 0 P 0 0 0 0 Past Encounters Encounter ID Performer Location Encounter Start Date Encounter Closed Date Diagnosis/Indication Diagnosis SNOMED-CT Code Diagnosis ICD10 Code Diagnosis IMO Codes Diagnosis Note [id number] Landy Azam, RAG ROOM SUPERVISOR [facility] [address] [place] [address] 06/15/2023 10:55:12 07/06/2023 04:11:02 Osteoarthritis of left knee joint 1455001128 05413 M17.12 [id number] Colleen Wheeler DPT [facility] [address] [place] [address] 07/05/2023 11:18:40 07/05/2023 12:07:42 Aftercare 317163094 Z47.1 History of left total knee replacement 7907947911 729167 Z96.286 [id number] Marvel Pérez PA-C [facility] [address] [place] [address] 07/06/2023 13:03:21 07/19/2023 07:20:57 History of arthroplasty of left knee 3151448941 581725 Z96.938 [id number] Edie Bass PTA [facility] [address] [place] [address] 07/10/2023 10:23:20 07/10/2023 12:53:37 Aftercare 139362640 Z47.1 History of left total knee replacement 3557689965 657390 Z96.304 [id number] Colleen Wheeler DPT [facility] [address] [place] [address] 07/12/2023 10:23:35 07/12/2023 11:55:36 Aftercare 704202744 Z47.1 History of left total knee replacement 7092953208 295185 Z96.663 [id number] Edie Bass, HOTEL RESERVATIONIST [facility] [address] [place] [address] 07/18/2023 10:14:58 07/18/2023 11:54:14 Aftercare 945737082 Z47.1 History of left total knee replacement 6274327479 409319 Z96.731 [id number] ALYCE RubioT [facility] [address] [place] [address] 07/20/2023 10:10:53 07/20/2023 11:17:35 Aftercare 756808281 Z47.1 History of left total knee replacement 7465298592 009184 Z96.691 [id number] Edie Bass HOTEL RESERVATIONIST [facility] [address] [place] [address] 07/24/2023 11:08:30 07/24/2023 12:16:33 Aftercare 694790795 Z47.1 History of left total knee replacement 7828270105 548483 Z96.083 [id number] Edie Bass HOTEL RESERVATIONIST [facility] [address] [place] [address] 07/26/2023 11:24:13 07/26/2023 12:05:25 Aftercare 918372534 Z47.1 History of left total knee replacement 4048611192 099993 Z96.146 [id number] Colleen Wheeler DPT [facility] [address] [place] [address] 07/31/2023 10:28:22 07/31/2023 11:28:34 Aftercare 732047815 Z47.1 History of left total knee replacement 9487293015 284016 Z96.727 [id number] ALYCE RubioT [facility] [address] [place] [address] 08/02/2023 10:29:30 08/02/2023 11:11:32 Aftercare 385795454 Z47.1 History of left total knee replacement 4347437150 179096 Z96.353 [id number] Edie Bass, HOTEL RESERVATIONIST [facility] [address] [place] [address] 08/07/2023 10:20:15 08/07/2023 11:12:40 Aftercare 910177968 Z47.1 History of left total knee replacement 1896842841 546168 Z96.012 [id number] Bobby Christopher MD [facility] [address] [place] [address] 08/07/2023 13:50:54 08/17/2023 12:02:05 History of left total knee replacement 7998206914 607017 Z96.536 [id number] Edie Bass, HOTEL RESERVATIONIST [facility] [address] [place] [address] 08/09/2023 10:08:30 08/09/2023 12:30:38 History of left total knee replacement 0291597666 275490 Z96.652 Aftercare 780710472 Z47. 1 [id number] Edie Bass, HOTEL RESERVATIONIST [facility] [address] [place] [address] 08/14/2023 09:55:15 08/14/2023 10:45:16 History of left total knee replacement 2066300476 052755 Z96.652 Aftercare 024604894 Z47. 1 [id number] Edie Bass, HOTEL RESERVATIONIST [facility] [address] [place] [address] 08/16/2023 10:13:19 08/16/2023 10:34:03 History of left total knee replacement 4014056973 989373 Z96.652 Aftercare 080409990 Z47. 1 [id number] Edie Bass, HOTEL RESERVATIONIST [facility] [address] [place] [address] 08/30/2023 16:41:21 08/30/2023 17:39:34 History of left total knee replacement 7356482825 108707 Z96.652 Aftercare 268596813 Z47. 1 Health Concerns Section Related Observation LastModified by Organization Detai ls LastModified Time None Recorded Concern Status LastModified by Organization Details LastModified Time None Recorded Advance Directives Directive None Recorded Payers Insurance Date Sequence Insurance Name Policy Number Policy Saleh Covered Member ID Saleh Member ID Guarantor Name 08/26/2023 2 [facility] (INDEMNITY) [id number] Layla Alexander Ariana [id number] [address]la [address] 08/27/2023 1 MEDICARE B-[place]: [employer] Layla Alexander Ariana [id number] Notes Date Note Type Note Provider Name and Address Organization Details Recorded Time 08/07/2023 text/html Patient presents today reporting 0/10 pain. Pt states occasional sharp shooting pains in knee. Colleen Wheeler DPT [address], [place], [address], [facility] 08/11/2023 14:11:44 08/09/2023 text/html Patient presents today reporting 0/10 pain. Pt states occasional sharp shooting pains in knee. Colleen Wheeler DPT [address], [place], [address], [facility] 08/10/2023 15:06:07 08/14/2023 text/html Patient presents today reporting 0/10 pain. Pt cont to state occasional sharp shooting pains especially at night. Edie Bass PTA [address], [place], [address], [facility] 08/14/2023 12:54:43 08/16/2023 text/html Patient presents today reporting 0/10 pain. Pt cont to state occasional sharp shooting pains especially at night. Edie Bass PTA [address], [place], [address], [facility] 08/16/2023 11:04:52 08/30/2023 text/html Patient presents today reporting 0/10 pain. Pt states having bronchiitis-repor ts knee feels like there's a rubberband around the knee. Edie Bass PTA [address], [place], [address], [facility] 08/30/2023 17:35:54 OBGyn Episode No OBEpisode recorded.
== END 2025-01-30 11:26 | disposition home or self-care (01) ==
LOC: HO.LNP 11:25
PROVIDERS: Visit Provider Internal Medicine
DX: I10 Essential (primary) hypertension (principal)
CPT/HCPCS: 81001